=== PATIENT | male | born 1960 | race African-American/Black ===

== ENCOUNTER 2016-11-16 12:57 | Emergency (ER) | payer MEDICAID ==
[~2016-11-16] VITALS: Ht 177.8 cm; Wt 73.0 kg
[~2016-11-16 12:57] MED LIST: AMLO10TA80 PO; BUSP30TA2 PO; DIPH25CA83 PO; INSLIS SQ; INSU3INS6 SUBCUT; LATA2.5D2 EACHEYE; LEVO500T15 PO; LOSA25TA12 PO; ONDA4TAB51 PO; SERT-112 PO
[2016-11-16 13:07] VITALS: BP 160/94
[2016-11-16] MEDS ORDERED: DIAZEPAM 5 MG TABLET PO ONE (14:45)
== END 2016-11-16 15:37 | disposition home or self-care (01) ==
LOC: ER 13:49
DX: M54.12 Radiculopathy, cervical region (principal); E11.9 Type 2 diabetes mellitus without complications; I10 Essential (primary) hypertension; Z79.899 Other long term (current) drug therapy; F17.200 Nicotine dependence, unspecified, uncomplicated
CPT/HCPCS: 99283

== ENCOUNTER 2016-11-21 15:11 | Emergency (ER) | payer MEDICAID ==
[~2016-11-21] VITALS: Ht 175.3 cm; Wt 71.0 kg
[2016-11-21] MEDS ORDERED: SODIUM CHLORIDE 0.9% 1,000 ML IV ONE (16:15)
[2016-11-21] MEDS ORDERED: ACETAMINOPHEN 500MG TABLET PO ONE (16:15)
[2016-11-21] MEDS ORDERED: SODIUM CHLORIDE 0.9% 1000ML BAG (SEPSIS BOLUS) IV ONE (16:30)
[2016-11-21 16:32] LABS: BASOPHILS % 1.2 % (0.0-2.0); HEMATOCRIT. 39.4 % (42.0-52.0); HEMOGLOBIN. 12.8 g/dL (14.0-18.0); LYMPHOCYTES % 9.2 % (20.0-50.0); MEAN CORPUSCULAR HEMOGLOBIN 28.2 pg (28.0-32.0); MEAN CORPUSCULAR HGB CONC 32.4 g/dL (31.0-37.0); MEAN CORPUSCULAR VOLUME 86.9 fL (80.0-94.0); MEAN PLATELET VOLUME 8.8 fl (7.4-10.4); MONOCYTES % 9.7 % (2.0-8.0); NEUTROPHILS % 79.9 % (40.0-76.0); PLATELET 172 x1000/uL (130-400); RED BLOOD CELL COUNT 4.53 mill/uL (4.7-6.1); RED CELL DISTRIBUTION WIDTH 13.1 % (11.6-14.6); WHITE BLOOD COUNT 4.5 x1000/uL (4.5-11.0)
[2016-11-21 16:37] LABS: CHLORIDE 101 mEq/L (98-107); INDEX HEMOLYSI 1 (1-3); INDEX ICTERIC 1 (1-4); INDEX LIPEMIC 1 (1-3)
[2016-11-21 16:42] LABS: ALBUMIN 2.2 g/dL (3.4-5.0); ANION GAP 14; CALCIUM 7.9 mg/dL (8.5-10.1); CARBON DIOXIDE 25 mEq/L (21-32); UREA NITROGEN BLOOD 11 mg/dL (7-21)
[2016-11-21 16:45] LABS: ALANINE AMINOTRANSFERASE 56 IU/L (13-61); eGFR > 60 mL/min (>60)
[2016-11-21 17:03] LABS: INR 1.1; PROTHROMBIN TIME 11.5 sec
[2016-11-21] MEDS ORDERED: ACETAMINOPHEN 325MG TABLET PO ONE (17:45)
[2016-11-21] MEDS ORDERED: KETOROLAC 30MG/ML VIAL IV ONE (18:00)
[2016-11-21 18:21] LABS: CLARITY URINE CLEAR (CLEAR); COLOR URINE YELLOW (YELLOW); GLUCOSE URINE 3+ (NEGATIVE); KETONES URINE NEGATIVE (NEGATIVE); LEUKOCYTE ESTERASE URINE NEGATIVE (NEGATIVE); NITRITE URINE NEGATIVE (NEGATIVE); OCCULT BLOOD URINE 2+ (NEGATIVE); PROTEIN URINE 3+ (NEGATIVE); SPECIFIC GRAVITY URINE 1.021 (1.005-1.030)
[2016-11-21 18:41] LABS: BACTERIA URINE TRACE; SQUAMOUS EPITHELIAL CELL URINE NONE SEEN /lpf (RARE/1+); WBC URINE NONE SEEN /hpf (0-2)
[2016-11-21] MEDS ORDERED: GUAIFENESIN/CODEINE 200-20MG/10ML UDC PO ONE (19:00)
[2016-11-21] MEDS ORDERED: ALBUTEROL (0.083%) 2.5MG/3ML NEB HHN ONE (19:00)
[2016-11-21] MEDS ORDERED: LABETALOL 5MG/ML SYR 20 MG/4 ML SYRINGE IV ONE (19:30)
[2016-11-21 20:10] VITALS: BP 152/101
[2016-12-05] MEDS ORDERED: COR6 PO (10:30)
[2016-12-05] MEDS ORDERED: BUSP30TA2 PO (10:30)
[2016-12-05] MEDS ORDERED: INSU3INS6 SUBCUT (10:30)
[2016-12-05] MEDS ORDERED: Potassium Chloride PO (10:30)
[2016-12-05] MEDS ORDERED: ASPI-867 PO (10:30)
[2016-12-05] MEDS ORDERED: AMLO10TA80 PO (10:30)
[2016-12-05] MEDS ORDERED: LOSA100T11 PO (10:30)
[2016-12-05] MEDS ORDERED: SERT50TA PO (10:30)
[2016-12-05] MEDS ORDERED: LIP40 PO (10:30)
[2016-12-05] MEDS ORDERED: INSLIS SQ (10:30)
[2016-12-05] MEDS ORDERED: LEVO250T2 PO (10:30)
[2016-12-05] MEDS ORDERED: CLOP75TA33 PO (10:31)
== END 2016-11-21 22:30 | disposition home or self-care (01) ==
LOC: ER 15:13
DX: J06.9 Acute upper respiratory infection, unspecified (principal); R50.9 Fever, unspecified; S22.32XA Fracture of one rib, left side, initial encounter for closed fracture; E11.65 Type 2 diabetes mellitus with hyperglycemia; J44.9 Chronic obstructive pulmonary disease, unspecified; I10 Essential (primary) hypertension; F17.210 Nicotine dependence, cigarettes, uncomplicated; Z79.4 Long term (current) use of insulin; Z79.899 Other long term (current) drug therapy; Z87.01 Personal history of pneumonia (recurrent); X58.XXXA Exposure to other specified factors, initial encounter; Y93.89 Activity, other specified; Y92.89 Other specified places as the place of occurrence of the external cause; Y99.8 Other external cause status
CPT/HCPCS: 36415; 71020; 80053; 81001; 82962; 83605; 85025; 85610; 87040; 87804; 93005; 94640; 96361; 96374; 96375; 99285; J1885; J7030; J7611; Z7610

== ENCOUNTER 2017-07-03 23:19 | Emergency (ER) | payer MEDICAID ==
[~2017-07-03] VITALS: Ht 175.3 cm; Wt 79.0 kg
[~2017-07-03 23:19] MED LIST changes: +ASPI-867 PO; +CLOP75TA33 PO; +COR6 PO; +LEVO250T2 PO; -LEVO500T15 PO; +LIP40 PO; +LOSA100T3 PO; -LOSA25TA12 PO; -ONDA4TAB51 PO; +Potassium Chloride PO; +SERT50TA PO
[2017-07-04] MEDS ORDERED: KETOROLAC 60MG/2ML VIAL IM ONE (00:45)
[2017-07-04] MEDS ORDERED: TETANUS, DIPHTHERIA, PERTUSSIS VAC/PF 0.5ML (>7YR OLD) IM ONE (01:45)
[2017-07-04 02:50] VITALS: BP 132/74
== END 2017-07-04 02:50 | disposition home or self-care (01) ==
LOC: ER 23:20
DX: S09.8XXA Other specified injuries of head, initial encounter (principal); M79.641 Pain in right hand; R07.81 Pleurodynia; E11.9 Type 2 diabetes mellitus without complications; I11.0 Hypertensive heart disease with heart failure; I50.9 Heart failure, unspecified; F17.200 Nicotine dependence, unspecified, uncomplicated; Z79.82 Long term (current) use of aspirin; Z79.4 Long term (current) use of insulin; V19.9XXA Pedal cyclist (driver) (passenger) injured in unspecified traffic accident, initial encounter; Y93.89 Activity, other specified; Y92.89 Other specified places as the place of occurrence of the external cause; Y99.8 Other external cause status
CPT/HCPCS: 70450; 71101; 73130; 90471; 90715; 96372; 99284; J1885

== ENCOUNTER 2018-08-10 07:04 | Inpatient (IN) | payer MEDICAID ==
[~2018-08-10] VITALS: Ht 175.3 cm; Wt 76.1 kg
[~2018-08-10 07:04] MED LIST changes: +ASA5EC PO; -ASPI-867 PO
[2018-08-10] MEDS ORDERED: METHYLPREDNISOLONE SOD SUCC 125 MG/2 ML VIAL IV STA (07:29)
[2018-08-10] MEDS ORDERED: IPRATROPIUM/ALBUTEROL 0.5-3(2.5)MG/3ML NEB HHN ONE (07:30)
[2018-08-10] MEDS ORDERED: LEVOFLOXACIN 750MG PREMIX 150 ML IV ONE (07:30)
[2018-08-10] MEDS ORDERED: MAGNESIUM 2 G PREMIX 50 ML IV ONE (07:30)
[2018-08-10 07:51] LABS: HEMATOCRIT. 39.9 % (42.0-52.0); HEMOGLOBIN. 12.8 g/dL (14.0-18.0); MEAN CORPUSCULAR VOLUME 84.4 fL (80.0-94.0); MEAN PLATELET VOLUME 8.4 fl (7.4-10.4); PLATELET 267 x1000/uL (130-400); RED BLOOD CELL COUNT 4.72 mill/uL (4.7-6.1); RED CELL DISTRIBUTION WIDTH 14.3 % (11.6-14.6)
[2018-08-10 07:54] LABS: CHLORIDE 104 mEq/L (98-107)
[2018-08-10 07:58] LABS: ETHANOL BLOOD < 10 mg/dL
[2018-08-10 07:59] LABS: PARTIAL THROMBOPLASTIN TIME 26.2 sec (23.4-31.0); PROTHROMBIN TIME 10.1 sec (9.1-11.1)
[2018-08-10 08:04] LABS: CREATINE KINASE 534 IU/L (39-308)
[2018-08-10 08:07] LABS: CREATINE KINASE MB FRACTION 7.4 ng/mL (0.5-3.6)
[2018-08-10 08:18] LABS: PLATELET ESTIMATE NORMAL
[2018-08-10 10:15] LABS: *AMPHETAMINES SCREEN URINE NEGATIVE (NEGATIVE); OPIATES URINE SCREEN PRESUMTIVE POSITIVE (NEGATIVE); PHENCYCLIDINE URINE SCREEN NEGATIVE (NEGATIVE)
[2018-08-10 10:16] LABS: CANNABINOID URINE SCREEN NEGATIVE (NEGATIVE)
[2018-08-10 10:25] LABS: *BARBITURATES SCREEN URINE NEGATIVE (NEGATIVE)
[2018-08-10 10:26] LABS: *COCAINE SCREEN URINE PRESUMTIVE POSITIVE (NEGATIVE)
[2018-08-10 10:27] LABS: *BENZODIAZEPINES SCREEN URINE NEGATIVE (NEGATIVE)
[2018-08-10 10:28] LABS: METHADONE URINE SCREEN NEGATIVE (NEGATIVE)
[2018-08-10] MEDS: CLONIDINE 0.1MG TABLET PO PRN (14:42)
[2018-08-10] MEDS: HYDROCODONE/ACETAMINOPHEN 5/325MG TABLET PO PRN (19:52)
[2018-08-10 21:00] VITALS: BP_SYST 151; BP_DIAS 100; BP_DIAS 108
[2018-08-11] VITALS: BP 176/114
[2018-08-11] MEDS: CLONIDINE 0.1MG TABLET PO PRN ×2 (00:27→13:08)
[2018-08-11] MEDS: HYDROCODONE/ACETAMINOPHEN 5/325MG TABLET PO PRN ×2 (00:27→10:46)
[2018-08-11] MEDS ORDERED: HYDROCODONE/ACETAMINOPHEN 5/325MG TABLET PO PRN (03:00)
[2018-08-11] MEDS ORDERED: DEXTROSE 50% WATER 50ML SYRINGE IV PRN (03:00)
[2018-08-11] MEDS ORDERED: DIPHENHYDRAMINE 25MG CAPSULE PO PRN (03:00)
[2018-08-11] MEDS ORDERED: INSULIN LISPRO 100 UNITS/ML SUBCUT NR (03:00)
[2018-08-11] MEDS: INSULIN LISPRO 100 UNITS/ML SUBCUT SCH ×5 (03:34→21:11)
[2018-08-11] MEDS: METHYLPREDNISOLONE SOD SUCC 40 MG/ML VIAL IV SCH ×3 (03:35→22:25)
[2018-08-11] MEDS: IPRATROPIUM/ALBUTEROL 0.5-3(2.5)MG/3ML NEB HHN SCH ×5 (03:53→23:36)
[2018-08-11 04:00] VITALS: BP 157/116
[2018-08-11] MEDS: BLOOD SUGAR DIAGNOSTIC STRIP TEST SCH ×4 (06:23→21:08)
[2018-08-11 08:00] VITALS: BP 156/110
[2018-08-11] MEDS: CARVEDILOL 6.25 MG TABLET PO SCH ×2 (09:25→20:06)
[2018-08-11] MEDS: AMLODIPINE 10MG TABLET PO SCH (09:25)
[2018-08-11] MEDS: ENOXAPARIN 40MG/0.4ML SYR SUBCUT SCH (09:26)
[2018-08-11] MEDS: ASPIRIN 325MG EC TABLET PO SCH (09:26)
[2018-08-11] MEDS ORDERED: LEVOFLOXACIN 250MG TABLET PO SCH (11:00)
[2018-08-11 11:52] LABS: CREATINE KINASE MB FRACTION 5.9 ng/mL (0.5-3.6)
[2018-08-11 12:00] VITALS: BP 155/101
[2018-08-11] MEDS: CHLORDIAZEPOXIDE 25MG CAPSULE PO SCH ×2 (14:58→22:25)
[2018-08-11] MEDS ORDERED: HYDRALAZINE 20MG/ML VIAL IV PRN (15:30)
[2018-08-11 16:00] VITALS: BP 164/114
[2018-08-11] MEDS ORDERED: BENZONATATE 100MG CAPSULE PO PRN (16:15)
[2018-08-11] MEDS ORDERED: HYDRALAZINE 20MG/ML VIAL IV NR (17:00)
[2018-08-11 20:00] VITALS: BP 158/104
[2018-08-11] MEDS: SERTRALINE HCL 50MG TABLET PO SCH (20:05)
[2018-08-11] MEDS: ATORVASTATIN CALCIUM 40MG TABLET PO SCH (20:06)
[2018-08-11] MEDS: LATANOPROST 0.005% OPHTH DROPS 2.5ML EACHEYE SCH ×2 (20:06→20:09)
[2018-08-12] VITALS (7 sets, daily range): BP systolic 144–164; BP diastolic 91–111
[2018-08-12] MEDS: CLONIDINE 0.1MG TABLET PO PRN (00:05)
[2018-08-12] MEDS: HYDROCODONE/ACETAMINOPHEN 5/325MG TABLET PO PRN ×3 (00:10→20:38)
[2018-08-12] MEDS: IPRATROPIUM/ALBUTEROL 0.5-3(2.5)MG/3ML NEB HHN SCH ×5 (03:57→20:15)
[2018-08-12] MEDS: BLOOD SUGAR DIAGNOSTIC STRIP TEST SCH ×4 (06:26→20:36)
[2018-08-12] MEDS: METHYLPREDNISOLONE SOD SUCC 40 MG/ML VIAL IV SCH ×3 (06:26→20:35)
[2018-08-12] MEDS: CHLORDIAZEPOXIDE 25MG CAPSULE PO SCH ×3 (06:26→20:35)
[2018-08-12] MEDS: INSULIN LISPRO 100 UNITS/ML SUBCUT SCH ×4 (06:34→20:39)
[2018-08-12 08:09] LABS: CHLORIDE 102 mEq/L (98-107)
[2018-08-12 08:10] LABS: HEMATOCRIT. 36.1 % (42.0-52.0); HEMOGLOBIN. 11.6 g/dL (14.0-18.0); MEAN CORPUSCULAR HEMOGLOBIN 26.7 pg (28.0-32.0); MEAN CORPUSCULAR VOLUME 83.3 fL (80.0-94.0); MEAN PLATELET VOLUME 8.6 fl (7.4-10.4); PLATELET 293 x1000/uL (130-400); RED BLOOD CELL COUNT 4.34 mill/uL (4.7-6.1); RED CELL DISTRIBUTION WIDTH 14.1 % (11.6-14.6)
[2018-08-12] MEDS: FOLIC ACID 1MG TABLET PO SCH (08:26)
[2018-08-12] MEDS: AMLODIPINE 10MG TABLET PO SCH (08:27)
[2018-08-12] MEDS: CLOPIDOGREL 75MG TABLET PO SCH (08:27)
[2018-08-12] MEDS: THIAMINE HCL 100MG TABLET PO SCH (08:27)
[2018-08-12] MEDS: CARVEDILOL 6.25 MG TABLET PO SCH ×2 (08:27→20:36)
[2018-08-12] MEDS: MULTIVITAMINS,THER W-MINERALS TABLET PO SCH (08:27)
[2018-08-12] MEDS: ASPIRIN 325MG EC TABLET PO SCH (08:27)
[2018-08-12] MEDS: ENOXAPARIN 40MG/0.4ML SYR SUBCUT SCH (08:28)
[2018-08-12 08:31] LABS: TOTAL IRON BINDING CAPACITY 256 ug/dL (250-450)
[2018-08-12 08:32] LABS: CREATINE KINASE 257 IU/L (39-308)
[2018-08-12 09:46] LABS: FOLIC ACID (FOLATE) SERUM 14.7 ng/mL (>5.38)
[2018-08-12 09:59] LABS: PLATELET ESTIMATE NORMAL
[2018-08-12] MEDS ORDERED: FUROSEMIDE 40MG/4ML VIAL IVP NR (13:45)
[2018-08-12] MEDS: LOSARTAN POTASSIUM 25 MG TABLET PO SCH ×2 (16:42→20:35)
[2018-08-12] MEDS: CEFTRIAXONE 1 G PREMIX 50 ML IV SCH (16:42)
[2018-08-12] MEDS: AZITHROMYCIN 500 MG in DEXT 5% WATER 250 ML IV SCH (17:46)
[2018-08-12] MEDS: FUROSEMIDE 40MG/4ML VIAL IVP SCH (17:46)
[2018-08-12] MEDS: LATANOPROST 0.005% OPHTH DROPS 2.5ML EACHEYE SCH ×2 (20:34→20:51)
[2018-08-12] MEDS: ATORVASTATIN CALCIUM 40MG TABLET PO SCH (20:35)
[2018-08-12] MEDS: SERTRALINE HCL 50MG TABLET PO SCH (20:36)
[2018-08-12] MEDS ORDERED: INSULIN GLARGINE UD 100 UNITS/ML SYR SUBCUT SCH (22:00)
[2018-08-13] VITALS (7 sets, daily range): BP systolic 116–146; BP diastolic 84–102
[2018-08-13] MEDS: IPRATROPIUM/ALBUTEROL 0.5-3(2.5)MG/3ML NEB HHN SCH ×6 (03:54→20:49)
[2018-08-13] MEDS: FUROSEMIDE 40MG/4ML VIAL IVP SCH ×2 (06:12→16:08)
[2018-08-13] MEDS: METHYLPREDNISOLONE SOD SUCC 40 MG/ML VIAL IV SCH ×2 (06:12→14:39)
[2018-08-13] MEDS: CHLORDIAZEPOXIDE 25MG CAPSULE PO SCH ×3 (06:12→21:09)
[2018-08-13] MEDS: BLOOD SUGAR DIAGNOSTIC STRIP TEST SCH ×4 (06:12→21:08)
[2018-08-13] MEDS: INSULIN LISPRO 100 UNITS/ML SUBCUT SCH ×7 (06:13→21:22)
[2018-08-13] MEDS: ASPIRIN 325MG EC TABLET PO SCH (08:43)
[2018-08-13] MEDS: CLOPIDOGREL 75MG TABLET PO SCH (08:43)
[2018-08-13] MEDS: CARVEDILOL 6.25 MG TABLET PO SCH ×2 (08:43→21:07)
[2018-08-13] MEDS: LOSARTAN POTASSIUM 25 MG TABLET PO SCH ×2 (08:44→21:08)
[2018-08-13] MEDS: THIAMINE HCL 100MG TABLET PO SCH (08:44)
[2018-08-13] MEDS: ENOXAPARIN 40MG/0.4ML SYR SUBCUT SCH (08:44)
[2018-08-13] MEDS: MULTIVITAMINS,THER W-MINERALS TABLET PO SCH (08:44)
[2018-08-13] MEDS: AMLODIPINE 10MG TABLET PO SCH (08:44)
[2018-08-13] MEDS: FOLIC ACID 1MG TABLET PO SCH (08:44)
[2018-08-13] MEDS ORDERED: FUROSEMIDE 40MG/4ML VIAL IVP SCH (09:00)
[2018-08-13 09:27] LABS: HEMATOCRIT. 38.6 % (42.0-52.0); HEMOGLOBIN. 12.6 g/dL (14.0-18.0); MEAN CORPUSCULAR HEMOGLOBIN 26.9 pg (28.0-32.0); MEAN CORPUSCULAR VOLUME 82.8 fL (80.0-94.0); MEAN PLATELET VOLUME 8.8 fl (7.4-10.4); PLATELET 329 x1000/uL (130-400); RED BLOOD CELL COUNT 4.67 mill/uL (4.7-6.1); RED CELL DISTRIBUTION WIDTH 14.1 % (11.6-14.6)
[2018-08-13 09:53] LABS: CHLORIDE 101 mEq/L (98-107)
[2018-08-13 10:09] LABS: CREATINE KINASE 113 IU/L (39-308)
[2018-08-13 10:19] LABS: CREATINE KINASE MB FRACTION 3.5 ng/mL (0.5-3.6)
[2018-08-13 11:11] LABS: PLATELET ESTIMATE NORMAL
[2018-08-13] MEDS: FERROUS SULFATE 325MG TABLET PO SCH ×3 (11:55→17:40)
[2018-08-13] MEDS: CEFTRIAXONE 1 G PREMIX 50 ML IV SCH (11:55)
[2018-08-13] MEDS ORDERED: INSULIN GLARGINE UD 100 UNITS/ML SYR SUBCUT SCH (13:00)
[2018-08-13] MEDS: HYDROCODONE/ACETAMINOPHEN 5/325MG TABLET PO PRN ×2 (14:39→21:19)
[2018-08-13] MEDS: AZITHROMYCIN 500 MG in DEXT 5% WATER 250 ML IV SCH (14:39)
[2018-08-13] MEDS ORDERED: AMLODIPINE 2.5MG TABLET PO SCH (15:30)
[2018-08-13] MEDS ORDERED: CLONIDINE 0.1MG TABLET PO PRN (15:30)
[2018-08-13] MEDS ORDERED: CLONIDINE 0.2MG TABLET PO PRN (15:30)
[2018-08-13] MEDS ORDERED: ONDANSETRON HCL 4MG/2ML INJ IV PRN (15:30)
[2018-08-13] MEDS: LATANOPROST 0.005% OPHTH DROPS 2.5ML EACHEYE SCH (21:07)
[2018-08-13] MEDS: ATORVASTATIN CALCIUM 40MG TABLET PO SCH (21:08)
[2018-08-13] MEDS: SERTRALINE HCL 50MG TABLET PO SCH (21:08)
[2018-08-13] MEDS: INSULIN GLARGINE UD 100 UNITS/ML SYR SUBCUT SCH (21:12)
[2018-08-14] VITALS: BP 131/88
[2018-08-14] MEDS: IPRATROPIUM/ALBUTEROL 0.5-3(2.5)MG/3ML NEB HHN SCH ×3 (01:48→13:36)
[2018-08-14 04:00] VITALS: BP 124/84
[2018-08-14] MEDS: CHLORDIAZEPOXIDE 25MG CAPSULE PO SCH ×2 (06:14→14:46)
[2018-08-14] MEDS: BLOOD SUGAR DIAGNOSTIC STRIP TEST SCH ×2 (06:14→12:10)
[2018-08-14] MEDS: INSULIN LISPRO 100 UNITS/ML SUBCUT SCH ×3 (06:18→13:49)
[2018-08-14 08:00] VITALS: BP 150/99
[2018-08-14 08:37] LABS: BASOPHILS % 0.1 % (0.0-2.0); HEMATOCRIT. 39.2 % (42.0-52.0); HEMOGLOBIN. 12.7 g/dL (14.0-18.0); LYMPHOCYTES % 12.6 % (20.0-50.0); MEAN CORPUSCULAR HEMOGLOBIN 26.5 pg (28.0-32.0); MEAN PLATELET VOLUME 8.5 fl (7.4-10.4); MONOCYTES % 6.2 % (2.0-8.0); NEUTROPHILS % 81.1 % (40.0-76.0); PLATELET 323 x1000/uL (130-400); RED BLOOD CELL COUNT 4.78 mill/uL (4.7-6.1); RED CELL DISTRIBUTION WIDTH 14.1 % (11.6-14.6)
[2018-08-14 09:18] LABS: CHLORIDE 104 mEq/L (98-107)
[2018-08-14] MEDS: CARVEDILOL 6.25 MG TABLET PO SCH (09:44)
[2018-08-14] MEDS: FERROUS SULFATE 325MG TABLET PO SCH ×2 (09:45→13:45)
[2018-08-14] MEDS: CLOPIDOGREL 75MG TABLET PO SCH (09:45)
[2018-08-14] MEDS: LOSARTAN POTASSIUM 25 MG TABLET PO SCH (09:45)
[2018-08-14] MEDS: THIAMINE HCL 100MG TABLET PO SCH (09:45)
[2018-08-14] MEDS: FOLIC ACID 1MG TABLET PO SCH (09:45)
[2018-08-14] MEDS: ENOXAPARIN 40MG/0.4ML SYR SUBCUT SCH (09:45)
[2018-08-14] MEDS: AMLODIPINE 10MG TABLET PO SCH (09:45)
[2018-08-14] MEDS: MULTIVITAMINS,THER W-MINERALS TABLET PO SCH (09:53)
[2018-08-14] MEDS: ASPIRIN 325MG EC TABLET PO SCH (09:53)
[2018-08-14] MEDS: HYDROCODONE/ACETAMINOPHEN 5/325MG TABLET PO PRN ×2 (09:54→14:51)
[2018-08-14 12:00] VITALS: BP 134/90
[2018-08-14] MEDS: CEFTRIAXONE 1 G PREMIX 50 ML IV SCH (13:45)
[2018-08-14] MEDS: INSULIN GLARGINE UD 100 UNITS/ML SYR SUBCUT SCH (13:48)
[2018-08-14] MEDS ORDERED: FERR325T23 PO (13:51)
[2018-08-14] MEDS ORDERED: THIA100T72 PO (13:51)
[2018-08-14] MEDS ORDERED: AZIT500T5 MT (13:51)
[2018-08-14] MEDS ORDERED: FURO40TA5 MT (13:51)
[2018-08-14] MEDS ORDERED: FOLI-43 PO (13:51)
[2018-08-14] MEDS ORDERED: L25 PO (13:51)
[2018-08-14] MEDS ORDERED: LOSA25TA3 PO (13:51)
[2018-08-14] MEDS ORDERED: ALBU6.7H INH (13:54)
[2018-08-14] MEDS ORDERED: AMLODIPINE 2.5MG TABLET PO SCH (14:45)
[2018-08-14] MEDS ORDERED: AMLO2.5T45 PO (15:44)
[2018-08-14 16:00] VITALS: BP 145/88
[2018-08-14] MEDS: AZITHROMYCIN 500 MG in DEXT 5% WATER 250 ML IV SCH (16:23)
[2018-08-14 16:30] VITALS: BP 145/88
== END 2018-08-14 17:10 | disposition home or self-care (01) | DRG 816 ==
LOC: ER 07:04 → 5WST 07:38 → EDBEDREQ 10:26 → ENRESERV 19:38 → 8WST 08-13 17:19
PROVIDERS: ADMIT Internal Medicine; ATTEND Internal Medicine
DX: T40.5X1A Poisoning by cocaine, accidental (unintentional), initial encounter (principal); J96.00 Acute respiratory failure, unspecified whether with hypoxia or hypercapnia; I50.23 Acute on chronic systolic (congestive) heart failure; G92 Toxic encephalopathy; N17.9 Acute kidney failure, unspecified; E11.65 Type 2 diabetes mellitus with hyperglycemia; F14.10 Cocaine abuse, uncomplicated; D50.9 Iron deficiency anemia, unspecified; E87.2 Acidosis; I11.0 Hypertensive heart disease with heart failure; J68.0 Bronchitis and pneumonitis due to chemicals, gases, fumes and vapors; J44.1 Chronic obstructive pulmonary disease with (acute) exacerbation; R00.0 Tachycardia, unspecified; T38.0X5A Adverse effect of glucocorticoids and synthetic analogues, initial encounter; F17.210 Nicotine dependence, cigarettes, uncomplicated; M62.82 Rhabdomyolysis; E78.00 Pure hypercholesterolemia, unspecified; F10.239 Alcohol dependence with withdrawal, unspecified; G43.909 Migraine, unspecified, not intractable, without status migrainosus; I42.0 Dilated cardiomyopathy; T50.2X5A Adverse effect of carbonic-anhydrase inhibitors, benzothiadiazides and other diuretics, initial encounter; Z79.82 Long term (current) use of aspirin; Z79.899 Other long term (current) drug therapy; Z87.820 Personal history of traumatic brain injury; I25.2 Old myocardial infarction; Z79.4 Long term (current) use of insulin; Z91.19 Patient's noncompliance with other medical treatment and regimen; Z71.6 Tobacco abuse counseling; Y92.89 Other specified places as the place of occurrence of the external cause
CPT/HCPCS: 36415; 71045; 74018; 80048; 80305; 82010; 82140; 82550; 82553; 82607; 82728; 82746; 82962; 83036; 83540; 83550; 83605; 83735; 83880; 84484; 85379; 87804; 93005; 93306; 93970; 94640; 96365; 96367; 96375; 99285; G0482; J0360; J0456; J0696; J1650; J1815; J1940; J1956; J2920; J2930; J3475; J7050; J7060; J7620

== ENCOUNTER 2018-08-17 00:16 | Emergency (ER) | payer MEDICAID ==
[~2018-08-17] VITALS: Ht 175.3 cm; Wt 77.5 kg
[~2018-08-17 00:16] MED LIST changes: +ALBU6.7H INH; -AMLO10TA80 PO; +AMLO2.5T45 PO; +AZIT500T5 MT; -DIPH25CA83 PO; +FERR325T23 PO; +FOLI-43 PO; +FURO40TA5 MT; +L25 PO; -LEVO250T2 PO; -LOSA100T3 PO; +LOSA25TA3 PO; -Potassium Chloride PO; -SERT-112 PO; +THIA100T72 PO
[2018-08-17] MEDS ORDERED: ONDANSETRON 4MG ODT PO ONE (01:15)
[2018-08-17 01:45] LABS: CHLORIDE 107 mEq/L (98-107)
[2018-08-17 01:51] LABS: BASOPHILS % 0.8 % (0.0-2.0); EOSINOPHILS % 3.6 % (0.0-5.0); HEMATOCRIT. 38.3 % (42.0-52.0); HEMOGLOBIN. 12.2 g/dL (14.0-18.0); LYMPHOCYTES % 19.9 % (20.0-50.0); MEAN CORPUSCULAR HEMOGLOBIN 26.6 pg (28.0-32.0); MEAN CORPUSCULAR VOLUME 83.6 fL (80.0-94.0); MEAN PLATELET VOLUME 8.7 fl (7.4-10.4); MONOCYTES % 12.7 % (2.0-8.0); PLATELET 257 x1000/uL (130-400); RED BLOOD CELL COUNT 4.58 mill/uL (4.7-6.1); RED CELL DISTRIBUTION WIDTH 14.2 % (11.6-14.6)
[2018-08-17 01:56] LABS: PROTHROMBIN TIME 10.3 sec (9.1-11.1)
[2018-08-17 02:59] VITALS: BP 130/80
== END 2018-08-17 03:00 | disposition home or self-care (01) ==
LOC: ER 00:16
DX: R06.6 Hiccough (principal); R11.10 Vomiting, unspecified; I50.9 Heart failure, unspecified; E11.9 Type 2 diabetes mellitus without complications; I10 Essential (primary) hypertension; Z79.82 Long term (current) use of aspirin; Z79.4 Long term (current) use of insulin; Z79.899 Other long term (current) drug therapy
CPT/HCPCS: 36415; 80053; 85025; 85610; 99283; Q0162

== ENCOUNTER 2018-09-02 11:57 | Inpatient (IN) | payer MEDICAID ==
[~2018-09-02] VITALS: Ht 175.3 cm; Wt 68.0 kg
[2018-09-02] MEDS ORDERED: METHYLPREDNISOLONE SOD SUCC 125 MG/2 ML VIAL IV STA (12:56)
[2018-09-02] MEDS ORDERED: NITROGLYCERIN OINT 1GM/INCH UDPKT TD ONE (13:00)
[2018-09-02] MEDS ORDERED: IPRATROPIUM/ALBUTEROL 0.5-3(2.5)MG/3ML NEB HHN ONE (13:00)
[2018-09-02] MEDS ORDERED: FUROSEMIDE 40MG/4ML VIAL IV ONE (13:00)
[2018-09-02 13:10] LABS: BASOPHILS % 0.3 % (0.0-2.0); EOSINOPHILS % 1.1 % (0.0-5.0); LYMPHOCYTES % 18.6 % (20.0-50.0); MEAN CORPUSCULAR HEMOGLOBIN 26.8 pg (28.0-32.0); MEAN CORPUSCULAR VOLUME 84.5 fL (80.0-94.0); MEAN PLATELET VOLUME 8.8 fl (7.4-10.4); MONOCYTES % 6.2 % (2.0-8.0); NEUTROPHILS % 73.8 % (40.0-76.0); PLATELET 296 x1000/uL (130-400); RED BLOOD CELL COUNT 4.86 mill/uL (4.7-6.1); RED CELL DISTRIBUTION WIDTH 15.7 % (11.6-14.6)
[2018-09-02 13:18] LABS: CHLORIDE 106 mEq/L (98-107)
[2018-09-02 13:24] LABS: ETHANOL BLOOD < 10 mg/dL
[2018-09-02] MEDS ORDERED: CEFTRIAXONE 1 G PREMIX 50 ML IV ONE (14:45)
[2018-09-02] MEDS ORDERED: AZITHROMYCIN 500 MG in DEXT 5% WATER 250 ML IV SCH (14:45)
[2018-09-02 15:13] LABS: BG CARBOXYHEMOGLOBIN 1.2 % (0.5-1.5); BG DEOXYHEMOGLOBIN 6.5 % (0.0-5.0); BG FRACTION INSPIRED OXYGEN 28; BG HCO3 ACT 24.3 mmol/L (22.0-26.0); BG METHEMOGLOBIN 0.2 % (0.0-1.5); BG OXYGEN SATURATION 93.4 % (92.0-98.5); BG OXYHEMOGLOBIN 92.1 % (94.0-97.0); BG PCO2 34.6 mmHg (35.0-45.0); BG PH 7.465 (7.350-7.450); BG SAMPLE SITE LEFT BRACHIAL; BG TOTAL HEMOGLOBIN 13.4 g/dL (12.0-18.0); BG VENT MODE NASAL CANNULA
[2018-09-02] MEDS ORDERED: IPRATROPIUM/ALBUTEROL 0.5-3(2.5)MG/3ML NEB INH PRN (18:00)
[2018-09-02] MEDS ORDERED: LORAZEPAM 0.5MG TABLET PO PRN (18:00)
[2018-09-02] MEDS ORDERED: ONDANSETRON HCL 4MG/2ML INJ IV PRN (18:00)
[2018-09-02] MEDS ORDERED: ACETAMINOPHEN 325MG TABLET PO PRN (18:00)
[2018-09-02] MEDS ORDERED: LEVOFLOXACIN 750MG PREMIX 150 ML IV SCH (18:00)
[2018-09-02] MEDS ORDERED: FUROSEMIDE 40MG/4ML VIAL IV SCH (18:00)
[2018-09-02] MEDS ORDERED: DOCUSATE SODIUM 100MG CAPSULE PO PRN (18:00)
[2018-09-02] MEDS ORDERED: DEXTROSE 50% WATER 50ML SYRINGE IV PRN (19:45)
[2018-09-02 20:40] LABS: BETA HYDROXYBUTYRATE 0.7 mMol/L (0.0-0.3)
[2018-09-02 20:43] LABS: CREATINE KINASE MB FRACTION 11.1 ng/mL (0.5-3.6)
[2018-09-02] MEDS: BLOOD SUGAR DIAGNOSTIC STRIP TEST SCH (21:00)
[2018-09-02] MEDS: INSULIN LISPRO 100 UNITS/ML SUBCUT SCH ×2 (21:03→22:20)
[2018-09-02] MEDS ORDERED: INSULIN GLARGINE UD 100 UNITS/ML SYR SUBCUT SCH ×2 (22:00)
[2018-09-02 22:16] VITALS: BP 148/98
[2018-09-02] MEDS: FUROSEMIDE 40MG/4ML VIAL IV SCH (22:18)
[2018-09-02] MEDS ORDERED: INSULIN LISPRO 100 UNITS/ML SUBCUT SCH (23:15)
[2018-09-02 23:52] VITALS: BP 148/98
[2018-09-03] VITALS (7 sets, daily range): BP systolic 139–167; BP diastolic 85–115
[2018-09-03] MEDS ORDERED: VENTOLIN 90 MCG BC (05:49)
[2018-09-03] MEDS ORDERED: INSU100I28 SQ (05:49)
[2018-09-03] MEDS ORDERED: INSU100I13 SQ (05:49)
[2018-09-03] MEDS ORDERED: FURO-151 PO (05:51)
[2018-09-03] MEDS: INSULIN LISPRO 100 UNITS/ML SUBCUT SCH ×7 (05:52→21:28)
[2018-09-03] MEDS: BLOOD SUGAR DIAGNOSTIC STRIP TEST SCH ×4 (05:52→20:58)
[2018-09-03 06:15] LABS: BASOPHILS % 0.4 % (0.0-2.0); HEMATOCRIT. 37.8 % (42.0-52.0); LYMPHOCYTES % 12.9 % (20.0-50.0); MEAN CORPUSCULAR HEMOGLOBIN 26.3 pg (28.0-32.0); MEAN CORPUSCULAR VOLUME 82.8 fL (80.0-94.0); MEAN PLATELET VOLUME 8.7 fl (7.4-10.4); MONOCYTES % 10.9 % (2.0-8.0); NEUTROPHILS % 75.8 % (40.0-76.0); PLATELET 324 x1000/uL (130-400); RED BLOOD CELL COUNT 4.56 mill/uL (4.7-6.1)
[2018-09-03 06:32] LABS: CHLORIDE 108 mEq/L (98-107)
[2018-09-03] MEDS ORDERED: INSULIN LISPRO 100 UNITS/ML SUBCUT SCH (07:50)
[2018-09-03] MEDS: NICOTINE 14MG PATCH TD SCH (10:08)
[2018-09-03] MEDS: CARVEDILOL 6.25 MG TABLET PO SCH ×2 (10:09→21:26)
[2018-09-03] MEDS: POTASSIUM CHLORIDE 20MEQ TABLET SR PO SCH (10:09)
[2018-09-03] MEDS: FUROSEMIDE 40MG/4ML VIAL IV SCH ×2 (10:09→21:26)
[2018-09-03] MEDS: ASPIRIN 81MG EC TABLET PO SCH (10:09)
[2018-09-03] MEDS: HYDROCODONE/ACETAMINOPHEN 5/325MG TABLET PO PRN ×2 (10:32→21:34)
[2018-09-03] MEDS: ENOXAPARIN 40MG/0.4ML SYR SUBCUT SCH (12:24)
[2018-09-03] MEDS: CLONIDINE 0.1MG TABLET PO PRN ×2 (13:10→18:58)
[2018-09-03] MEDS ORDERED: NICOTINE 14MG PATCH TD SCH (13:45)
[2018-09-03 17:57] LABS: BG BASE EXCESS 3.3 mmol/L (-2.0-2.0); BG CARBOXYHEMOGLOBIN 1.2 % (0.5-1.5); BG DEOXYHEMOGLOBIN 4.3 % (0.0-5.0); BG FRACTION INSPIRED OXYGEN 28; BG HCO3 ACT 25.7 mmol/L (22.0-26.0); BG METHEMOGLOBIN 0.3 % (0.0-1.5); BG OXYGEN SATURATION 95.6 % (92.0-98.5); BG OXYHEMOGLOBIN 94.2 % (94.0-97.0); BG PCO2 32.4 mmHg (35.0-45.0); BG PH 7.518 (7.350-7.450); BG SAMPLE SITE RIGHT RADIAL; BG TOTAL HEMOGLOBIN 12.9 g/dL (12.0-18.0); BG VENT MODE NASAL CANNULA
[2018-09-03] MEDS: FOLIC ACID 1MG TABLET PO SCH (18:09)
[2018-09-03] MEDS: AZITHROMYCIN 500 MG TABLET PO SCH (18:09)
[2018-09-03] MEDS: CHLORDIAZEPOXIDE 25MG CAPSULE PO SCH ×2 (18:09→21:26)
[2018-09-03] MEDS: FERROUS SULFATE 325MG TABLET PO SCH (18:09)
[2018-09-03] MEDS: CEFTRIAXONE 1 G PREMIX 50 ML IV SCH (18:10)
[2018-09-03] MEDS: THIAMINE HCL 100MG TABLET PO SCH (18:10)
[2018-09-03] MEDS: MULTIVITAMINS,THER W-MINERALS TABLET PO SCH (18:18)
[2018-09-03] MEDS: BUDESONIDE 0.5MG/2ML NEB HHN SCH (19:58)
[2018-09-03] MEDS: IPRATROPIUM/ALBUTEROL 0.5-3(2.5)MG/3ML NEB HHN SCH (19:58)
[2018-09-03] MEDS: INSULIN GLARGINE UD 100 UNITS/ML SYR SUBCUT SCH (22:41)
[2018-09-04 00:10] VITALS: BP 147/88
[2018-09-04] MEDS: IPRATROPIUM/ALBUTEROL 0.5-3(2.5)MG/3ML NEB HHN SCH ×4 (01:17→20:10)
[2018-09-04 04:00] VITALS: BP 124/80
[2018-09-04] MEDS: BLOOD SUGAR DIAGNOSTIC STRIP TEST SCH ×4 (06:21→21:12)
[2018-09-04] MEDS: CHLORDIAZEPOXIDE 25MG CAPSULE PO SCH ×3 (06:27→22:03)
[2018-09-04] MEDS: INSULIN LISPRO 100 UNITS/ML SUBCUT SCH ×6 (06:29→20:56)
[2018-09-04 07:04] LABS: BASOPHILS % 1.2 % (0.0-2.0); EOSINOPHILS % 1.4 % (0.0-5.0); HEMATOCRIT. 35.1 % (42.0-52.0); HEMOGLOBIN. 11.1 g/dL (14.0-18.0); LYMPHOCYTES % 29.8 % (20.0-50.0); MEAN CORPUSCULAR HEMOGLOBIN 26.4 pg (28.0-32.0); MEAN CORPUSCULAR VOLUME 83.5 fL (80.0-94.0); MEAN PLATELET VOLUME 8.5 fl (7.4-10.4); MONOCYTES % 6.7 % (2.0-8.0); NEUTROPHILS % 60.9 % (40.0-76.0); PLATELET 304 x1000/uL (130-400); RED CELL DISTRIBUTION WIDTH 15.1 % (11.6-14.6)
[2018-09-04 07:33] VITALS: BP 133/85
[2018-09-04] MEDS: HYDROCODONE/ACETAMINOPHEN 5/325MG TABLET PO PRN ×2 (07:35→22:12)
[2018-09-04] MEDS: POTASSIUM CHLORIDE 20MEQ TABLET SR PO SCH (09:04)
[2018-09-04] MEDS: MULTIVITAMINS,THER W-MINERALS TABLET PO SCH (09:04)
[2018-09-04] MEDS: NICOTINE 14MG PATCH TD SCH (09:04)
[2018-09-04] MEDS: ENOXAPARIN 40MG/0.4ML SYR SUBCUT SCH (09:04)
[2018-09-04] MEDS: AZITHROMYCIN 500 MG TABLET PO SCH (09:05)
[2018-09-04] MEDS: FUROSEMIDE 40MG/4ML VIAL IV SCH (09:05)
[2018-09-04] MEDS: THIAMINE HCL 100MG TABLET PO SCH (09:05)
[2018-09-04] MEDS: FERROUS SULFATE 325MG TABLET PO SCH ×3 (09:05→16:54)
[2018-09-04] MEDS: ASPIRIN 81MG EC TABLET PO SCH (09:05)
[2018-09-04] MEDS: FOLIC ACID 1MG TABLET PO SCH (09:05)
[2018-09-04] MEDS: CARVEDILOL 6.25 MG TABLET PO SCH ×2 (09:05→20:52)
[2018-09-04] MEDS: BUDESONIDE 0.5MG/2ML NEB HHN SCH ×2 (09:59→20:10)
[2018-09-04 12:00] VITALS: BP 126/76
[2018-09-04] MEDS: CEFTRIAXONE 1 G PREMIX 50 ML IV SCH (16:54)
[2018-09-04] MEDS: GUAIFENESIN-DM 200MG-20MG/10ML UDC PO PRN (17:24)
[2018-09-04 20:00] VITALS: BP 145/107
[2018-09-04] MEDS: INSULIN GLARGINE UD 100 UNITS/ML SYR SUBCUT SCH (22:05)
[2018-09-05] VITALS (7 sets, daily range): BP systolic 126–167; BP diastolic 78–106
[2018-09-05] MEDS: IPRATROPIUM/ALBUTEROL 0.5-3(2.5)MG/3ML NEB HHN SCH ×4 (01:50→21:54)
[2018-09-05] MEDS: CHLORDIAZEPOXIDE 25MG CAPSULE PO SCH ×3 (06:20→21:04)
[2018-09-05] MEDS: INSULIN LISPRO 100 UNITS/ML SUBCUT SCH ×7 (06:23→21:09)
[2018-09-05] MEDS: BLOOD SUGAR DIAGNOSTIC STRIP TEST SCH ×4 (06:44→20:40)
[2018-09-05 07:32] LABS: BASOPHILS % 1.1 % (0.0-2.0); EOSINOPHILS % 2.5 % (0.0-5.0); HEMATOCRIT. 37.3 % (42.0-52.0); HEMOGLOBIN. 11.6 g/dL (14.0-18.0); LYMPHOCYTES % 23.4 % (20.0-50.0); MEAN CORPUSCULAR HEMOGLOBIN 26.4 pg (28.0-32.0); MEAN CORPUSCULAR VOLUME 84.8 fL (80.0-94.0); MEAN PLATELET VOLUME 8.5 fl (7.4-10.4); MONOCYTES % 9.1 % (2.0-8.0); NEUTROPHILS % 63.9 % (40.0-76.0); PLATELET 284 x1000/uL (130-400); RED BLOOD CELL COUNT 4.39 mill/uL (4.7-6.1); RED CELL DISTRIBUTION WIDTH 15.7 % (11.6-14.6)
[2018-09-05] MEDS: BUDESONIDE 0.5MG/2ML NEB HHN SCH ×3 (08:44→21:54)
[2018-09-05] MEDS: NICOTINE 14MG PATCH TD SCH (09:28)
[2018-09-05] MEDS: FOLIC ACID 1MG TABLET PO SCH (09:29)
[2018-09-05] MEDS: FERROUS SULFATE 325MG TABLET PO SCH ×3 (09:29→16:44)
[2018-09-05] MEDS: POTASSIUM CHLORIDE 20MEQ TABLET SR PO SCH (09:29)
[2018-09-05] MEDS: FUROSEMIDE 40MG/4ML VIAL IV SCH (09:29)
[2018-09-05] MEDS: THIAMINE HCL 100MG TABLET PO SCH (09:29)
[2018-09-05] MEDS: ENOXAPARIN 40MG/0.4ML SYR SUBCUT SCH (09:29)
[2018-09-05] MEDS: ASPIRIN 81MG EC TABLET PO SCH (09:30)
[2018-09-05] MEDS: MULTIVITAMINS,THER W-MINERALS TABLET PO SCH (09:30)
[2018-09-05] MEDS: AZITHROMYCIN 500 MG TABLET PO SCH (09:30)
[2018-09-05] MEDS: CARVEDILOL 6.25 MG TABLET PO SCH ×2 (09:30→20:19)
[2018-09-05] MEDS: CLONIDINE 0.1MG TABLET PO PRN ×2 (09:40→21:04)
[2018-09-05] MEDS: GUAIFENESIN-DM 200MG-20MG/10ML UDC PO PRN ×2 (09:40→20:59)
[2018-09-05] MEDS: CEFTRIAXONE 1 G PREMIX 50 ML IV SCH (15:01)
[2018-09-05 18:52] LABS: *AMPHETAMINES SCREEN URINE NEGATIVE (NEGATIVE); *BARBITURATES SCREEN URINE NEGATIVE (NEGATIVE); CANNABINOID URINE SCREEN NEGATIVE (NEGATIVE)
[2018-09-05 18:53] LABS: *BENZODIAZEPINES SCREEN URINE PRESUMTIVE POSITIVE (NEGATIVE); *COCAINE SCREEN URINE PRESUMTIVE POSITIVE (NEGATIVE); METHADONE URINE SCREEN NEGATIVE (NEGATIVE); OPIATES URINE SCREEN NEGATIVE (NEGATIVE); PHENCYCLIDINE URINE SCREEN NEGATIVE (NEGATIVE)
[2018-09-05] MEDS: HYDROCODONE/ACETAMINOPHEN 5/325MG TABLET PO PRN (21:01)
[2018-09-05] MEDS: INSULIN GLARGINE UD 100 UNITS/ML SYR SUBCUT SCH (21:09)
[2018-09-06] VITALS: BP 146/105
[2018-09-06] MEDS: IPRATROPIUM/ALBUTEROL 0.5-3(2.5)MG/3ML NEB HHN SCH ×3 (01:00→16:18)
[2018-09-06 04:00] VITALS: BP 130/80
[2018-09-06] MEDS: CHLORDIAZEPOXIDE 25MG CAPSULE PO SCH ×2 (05:46→13:54)
[2018-09-06] MEDS: BLOOD SUGAR DIAGNOSTIC STRIP TEST SCH ×2 (06:24→12:25)
[2018-09-06] MEDS: INSULIN LISPRO 100 UNITS/ML SUBCUT SCH ×4 (06:43→12:51)
[2018-09-06 07:59] LABS: BASOPHILS % 2.4 % (0.0-2.0); EOSINOPHILS % 2.8 % (0.0-5.0); HEMATOCRIT. 37.5 % (42.0-52.0); LYMPHOCYTES % 22.8 % (20.0-50.0); MEAN CORPUSCULAR HEMOGLOBIN 26.9 pg (28.0-32.0); MEAN PLATELET VOLUME 8.9 fl (7.4-10.4); MONOCYTES % 10.2 % (2.0-8.0); NEUTROPHILS % 61.8 % (40.0-76.0); PLATELET 310 x1000/uL (130-400); RED BLOOD CELL COUNT 4.46 mill/uL (4.7-6.1); RED CELL DISTRIBUTION WIDTH 15.9 % (11.6-14.6)
[2018-09-06 08:00] VITALS: BP 144/80
[2018-09-06] MEDS: ENOXAPARIN 40MG/0.4ML SYR SUBCUT SCH (08:25)
[2018-09-06] MEDS: AZITHROMYCIN 500 MG TABLET PO SCH (08:26)
[2018-09-06] MEDS: FUROSEMIDE 40MG/4ML VIAL IV SCH (08:26)
[2018-09-06] MEDS: THIAMINE HCL 100MG TABLET PO SCH (08:26)
[2018-09-06] MEDS: FERROUS SULFATE 325MG TABLET PO SCH ×2 (08:26→12:55)
[2018-09-06] MEDS: CARVEDILOL 6.25 MG TABLET PO SCH (08:26)
[2018-09-06] MEDS: POTASSIUM CHLORIDE 20MEQ TABLET SR PO SCH (08:26)
[2018-09-06] MEDS: ASPIRIN 81MG EC TABLET PO SCH (08:26)
[2018-09-06] MEDS: FOLIC ACID 1MG TABLET PO SCH (08:26)
[2018-09-06] MEDS: NICOTINE 14MG PATCH TD SCH (08:27)
[2018-09-06] MEDS: MULTIVITAMINS,THER W-MINERALS TABLET PO SCH (08:30)
[2018-09-06] MEDS: BUDESONIDE 0.5MG/2ML NEB HHN SCH (10:25)
[2018-09-06 12:00] VITALS: BP 134/90
[2018-09-06] MEDS: HYDROCODONE/ACETAMINOPHEN 5/325MG TABLET PO PRN (12:48)
[2018-09-06] MEDS: CEFTRIAXONE 1 G PREMIX 50 ML IV SCH (15:52)
[2018-09-06 16:00] VITALS: BP 130/85
[2018-09-06 16:19] VITALS: BP 130/85
== END 2018-09-06 18:15 | disposition home or self-care (01) | DRG 816 ==
LOC: ER 11:57 → 8WST 14:49 → EDBEDREQ 14:57 → EDBEDREQTM 14:57 → ENRESERV 18:13
PROVIDERS: ADMIT Internal Medicine; ATTEND Internal Medicine
DX: T40.5X1A Poisoning by cocaine, accidental (unintentional), initial encounter (principal); J96.01 Acute respiratory failure with hypoxia; A41.9 Sepsis, unspecified organism; I50.23 Acute on chronic systolic (congestive) heart failure; J18.9 Pneumonia, unspecified organism; I42.9 Cardiomyopathy, unspecified; I11.0 Hypertensive heart disease with heart failure; E11.65 Type 2 diabetes mellitus with hyperglycemia; D50.9 Iron deficiency anemia, unspecified; F10.20 Alcohol dependence, uncomplicated; Y92.89 Other specified places as the place of occurrence of the external cause; F17.200 Nicotine dependence, unspecified, uncomplicated; J44.0 Chronic obstructive pulmonary disease with (acute) lower respiratory infection; J44.1 Chronic obstructive pulmonary disease with (acute) exacerbation; E78.5 Hyperlipidemia, unspecified; G43.909 Migraine, unspecified, not intractable, without status migrainosus; Z79.4 Long term (current) use of insulin; Z86.73 Personal history of transient ischemic attack (TIA), and cerebral infarction without residual deficits; Z91.19 Patient's noncompliance with other medical treatment and regimen
CPT/HCPCS: 36415; 36600; 71045; 80048; 80305; 82010; 82375; 82550; 82553; 82805; 82962; 83605; 83735; 83880; 84484; 85379; 93005; 94640; 96365; 96366; 96368; 96375; 99285; G0482; J0456; J0696; J1650; J1815; J1940; J2930; J7040; J7060; J7620; J7626

== ENCOUNTER 2018-11-22 19:56 | Inpatient (IN) | payer MEDICAID ==
[~2018-11-22] VITALS: Ht 175.3 cm; Wt 66.7 kg
[~2018-11-22 19:56] MED LIST changes: -ALBU6.7H INH; -ASA5EC PO; -AZIT500T5 MT; -BUSP30TA2 PO; -CLOP75TA33 PO; -COR6 PO; +FURO-151 PO; -INSLIS SQ; +INSU100I13 SQ; +INSU100I28 SQ; -INSU3INS6 SUBCUT; -L25 PO; -LATA2.5D2 EACHEYE; -LIP40 PO; -LOSA25TA3 PO; -SERT50TA PO; +VENTOLIN 90 MCG BC
[2018-11-22] MEDS ORDERED: KETOROLAC 30MG/ML VIAL IV STA (20:23)
[2018-11-22] MEDS ORDERED: METHYLPREDNISOLONE SOD SUCC 125 MG/2 ML VIAL IV STA (20:23)
[2018-11-22] MEDS ORDERED: ONDANSETRON HCL 4MG/2ML INJ IV STA (20:23)
[2018-11-22] MEDS ORDERED: ACETAMINOPHEN 325MG TABLET PO STA (20:23)
[2018-11-22] MEDS ORDERED: SODIUM CHLORIDE 0.9% 1,000 ML IV ONE (20:23)
[2018-11-22] MEDS ORDERED: MORPHINE SULFATE 4 MG/ML CPJ (NOT FOR IM USE) IV STA (20:23)
[2018-11-22] MEDS ORDERED: IPRATROPIUM/ALBUTEROL 0.5-3(2.5)MG/3ML NEB HHN ONE (20:45)
[2018-11-22 21:01] LABS: BG BASE EXCESS 1.1 mmol/L (-2.0-2.0); BG CARBOXYHEMOGLOBIN 0.6 % (0.5-1.5); BG DEOXYHEMOGLOBIN 10.9 % (0.0-5.0); BG FRACTION INSPIRED OXYGEN 28; BG HCO3 ACT 23.7 mmol/L (22.0-26.0); BG METHEMOGLOBIN 0.2 % (0.0-1.5); BG OXYHEMOGLOBIN 88.3 % (94.0-97.0); BG PCO2 31.8 mmHg (35.0-45.0); BG PH 7.491 (7.350-7.450); BG PO2 53.1 mmHg (75.0-100.0); BG SAMPLE SITE LEFT RADIAL; BG TOTAL HEMOGLOBIN 13.2 g/dL (12.0-18.0); BG VENT MODE NASAL CANNULA
[2018-11-22 22:27] LABS: HEMATOCRIT. 37.4 % (42.0-52.0); HEMOGLOBIN. 12.2 g/dL (14.0-18.0); MEAN CORPUSCULAR HEMOGLOBIN 26.6 pg (28.0-32.0); MEAN CORPUSCULAR VOLUME 81.3 fL (80.0-94.0); MEAN PLATELET VOLUME 8.6 fl (7.4-10.4); PLATELET 210 x1000/uL (130-400); RED BLOOD CELL COUNT 4.59 mill/uL (4.7-6.1); RED CELL DISTRIBUTION WIDTH 15.3 % (11.6-14.6)
[2018-11-22 22:33] LABS: CHLORIDE 100 mEq/L (98-107)
[2018-11-22 22:35] LABS: INR 1.1; PARTIAL THROMBOPLASTIN TIME 32.9 sec (23.4-31.0); PROTHROMBIN TIME 11.3 sec (9.1-11.1)
[2018-11-22 22:37] LABS: ETHANOL BLOOD < 10 mg/dL
[2018-11-22 23:15] LABS: ATYPICAL LYMPHOCYTES 1
[2018-11-22 23:16] LABS: PLATELET ESTIMATE NORMAL
[2018-11-23] MEDS ORDERED: INSULIN REGULAR (HUMULIN R) 300UNITS/3ML SUBCUT SCH (04:45)
[2018-11-23 06:50] VITALS: BP 128/89
[2018-11-23 08:00] VITALS: BP 128/89
[2018-11-23] MEDS ORDERED: DEXTROSE 50% WATER 50ML SYRINGE IV PRN (10:30)
[2018-11-23] MEDS: ONDANSETRON 4MG ODT PO PRN ×2 (10:31→17:33)
[2018-11-23 12:00] VITALS: BP 141/99
[2018-11-23] MEDS ORDERED: SODIUM CHLORIDE 0.9% 1,000 ML IV ONE (12:00)
[2018-11-23] MEDS: BLOOD SUGAR DIAGNOSTIC STRIP TEST SCH ×3 (12:35→21:16)
[2018-11-23] MEDS: GUAIFENESIN-DM 200MG-20MG/10ML UDC PO PRN ×2 (12:35→21:13)
[2018-11-23] MEDS: INSULIN LISPRO 100 UNITS/ML SUBCUT SCH ×3 (12:37→21:16)
[2018-11-23 13:22] LABS: HEMATOCRIT 40.6 % (42.0-52.0); HEMOGLOBIN 13.1 g/dL (14.0-18.0); MEAN CORPUSCULAR HEMOGLOBIN 26.6 pg (28.0-32.0); MEAN CORPUSCULAR VOLUME 82.4 fL (80.0-94.0); PLATELET 205 x1000/uL (130-400); RED BLOOD CELL COUNT 4.92 mill/uL (4.7-6.1); RED CELL DISTRIBUTION WIDTH 15.1 % (11.6-14.6)
[2018-11-23 13:33] LABS: BG BASE EXCESS -3.3 mmol/L (-2.0-2.0); BG CARBOXYHEMOGLOBIN 0.4 % (0.5-1.5); BG DEOXYHEMOGLOBIN 3.7 % (0.0-5.0); BG FRACTION INSPIRED OXYGEN 28; BG HCO3 ACT 22.2 mmol/L (22.0-26.0); BG METHEMOGLOBIN 0.2 % (0.0-1.5); BG OXYGEN SATURATION 96.3 % (92.0-98.5); BG OXYHEMOGLOBIN 95.7 % (94.0-97.0); BG PCO2 41.6 mmHg (35.0-45.0); BG PH 7.346 (7.350-7.450); BG SAMPLE SITE RIGHT BRACHIAL; BG TOTAL HEMOGLOBIN 14.3 g/dL (12.0-18.0); BG VENT MODE NASAL CANNULA
[2018-11-23] MEDS ORDERED: CLON-457 MT (15:27)
[2018-11-23] MEDS ORDERED: GABA-531 MT (15:27)
[2018-11-23] MEDS ORDERED: HYDR-4134 MT (15:27)
[2018-11-23] MEDS ORDERED: NITR0.4T49 SL (15:27)
[2018-11-23] MEDS ORDERED: SERT-112 MT (15:27)
[2018-11-23] MEDS ORDERED: GLIP5TAB12 MT (15:27)
[2018-11-23] MEDS ORDERED: LISI-186 MT (15:27)
[2018-11-23] MEDS ORDERED: AMLO10TA80 MT (15:27)
[2018-11-23 16:00] VITALS: BP 132/87
[2018-11-23] MEDS: BUDESONIDE 0.5MG/2ML NEB HHN SCH ×2 (16:38→23:11)
[2018-11-23] MEDS: IPRATROPIUM/ALBUTEROL 0.5-3(2.5)MG/3ML NEB HHN SCH ×3 (16:38→23:10)
[2018-11-23] MEDS: ENOXAPARIN 40MG/0.4ML SYR SUBCUT SCH (17:33)
[2018-11-23] MEDS ORDERED: CHLORPROMAZINE HCL 25MG/1ML AMP IM PRN (17:45)
[2018-11-23 20:00] VITALS: BP 98/67
[2018-11-23] MEDS: INSULIN GLARGINE UD 100 UNITS/ML SYR SUBCUT SCH (21:16)
[2018-11-23 22:56] LABS: *AMPHETAMINES SCREEN URINE NEGATIVE (NEGATIVE); *BARBITURATES SCREEN URINE NEGATIVE (NEGATIVE); *BENZODIAZEPINES SCREEN URINE NEGATIVE (NEGATIVE); *COCAINE SCREEN URINE PRESUMTIVE POSITIVE (NEGATIVE); METHADONE URINE SCREEN NEGATIVE (NEGATIVE); OPIATES URINE SCREEN PRESUMTIVE POSITIVE (NEGATIVE)
[2018-11-23 22:57] LABS: CANNABINOID URINE SCREEN NEGATIVE (NEGATIVE); PHENCYCLIDINE URINE SCREEN NEGATIVE (NEGATIVE)
[2018-11-24] VITALS: BP 96/62
[2018-11-24] MEDS ORDERED: AZITHROMYCIN 500 MG in DEXT 5% WATER 250 ML IV SCH (03:00)
[2018-11-24 04:00] VITALS: BP 106/74
[2018-11-24] MEDS: GUAIFENESIN-DM 200MG-20MG/10ML UDC PO PRN (04:11)
[2018-11-24] MEDS: CEFTRIAXONE 1 G PREMIX 50 ML IV SCH (04:17)
[2018-11-24] MEDS: IPRATROPIUM/ALBUTEROL 0.5-3(2.5)MG/3ML NEB HHN SCH ×4 (04:59→20:25)
[2018-11-24] MEDS: INSULIN LISPRO 100 UNITS/ML SUBCUT SCH ×4 (06:29→21:12)
[2018-11-24] MEDS: BLOOD SUGAR DIAGNOSTIC STRIP TEST SCH ×3 (06:29→21:00)
[2018-11-24 08:00] VITALS: BP 130/84
[2018-11-24] MEDS: BUDESONIDE 0.5MG/2ML NEB HHN SCH ×2 (08:51→20:25)
[2018-11-24] MEDS: ENOXAPARIN 40MG/0.4ML SYR SUBCUT SCH (09:41)
[2018-11-24 09:42] LABS: BASOPHILS % 0.6 % (0.0-2.0); HEMATOCRIT. 35.6 % (42.0-52.0); HEMOGLOBIN. 11.5 g/dL (14.0-18.0); LYMPHOCYTES % 11.7 % (20.0-50.0); MEAN CORPUSCULAR HEMOGLOBIN 26.1 pg (28.0-32.0); MEAN CORPUSCULAR VOLUME 80.9 fL (80.0-94.0); MEAN PLATELET VOLUME 8.8 fl (7.4-10.4); MONOCYTES % 4.3 % (2.0-8.0); NEUTROPHILS % 83.4 % (40.0-76.0); PLATELET 191 x1000/uL (130-400); RED CELL DISTRIBUTION WIDTH 15.4 % (11.6-14.6)
[2018-11-24] MEDS: ACETAMINOPHEN 325MG TABLET PO PRN ×3 (10:28→12:36)
[2018-11-24 12:00] VITALS: BP 115/71
[2018-11-24] MEDS: PREDNISONE 20MG TABLET PO SCH ×2 (14:17→17:39)
[2018-11-24 20:00] VITALS: BP 145/101
[2018-11-24] MEDS: HYDROCODONE/ACETAMINOPHEN 10/325MG TABLET PO PRN (21:10)
[2018-11-24] MEDS: INSULIN GLARGINE UD 100 UNITS/ML SYR SUBCUT SCH (21:12)
[2018-11-25] VITALS (7 sets, daily range): BP systolic 123–160; BP diastolic 80–105
[2018-11-25] MEDS: IPRATROPIUM/ALBUTEROL 0.5-3(2.5)MG/3ML NEB HHN SCH ×6 (00:35→20:05)
[2018-11-25] MEDS: CEFTRIAXONE 1 G PREMIX 50 ML IV SCH (02:32)
[2018-11-25] MEDS: AZITHROMYCIN 500 MG in SODIUM CHLORIDE 0.9% 250 ML IV SCH (04:45)
[2018-11-25] MEDS: INSULIN LISPRO 100 UNITS/ML SUBCUT SCH ×5 (06:41→20:54)
[2018-11-25 06:42] LABS: BASOPHILS % 0.3 % (0.0-2.0); HEMATOCRIT. 37.2 % (42.0-52.0); HEMOGLOBIN. 12.2 g/dL (14.0-18.0); LYMPHOCYTES % 11.6 % (20.0-50.0); MEAN CORPUSCULAR HEMOGLOBIN 26.6 pg (28.0-32.0); MEAN CORPUSCULAR VOLUME 81.2 fL (80.0-94.0); NEUTROPHILS % 82.1 % (40.0-76.0); PLATELET 190 x1000/uL (130-400); RED BLOOD CELL COUNT 4.58 mill/uL (4.7-6.1); RED CELL DISTRIBUTION WIDTH 15.3 % (11.6-14.6)
[2018-11-25] MEDS: BLOOD SUGAR DIAGNOSTIC STRIP TEST SCH ×4 (06:45→20:54)
[2018-11-25] MEDS: BUDESONIDE 0.5MG/2ML NEB HHN SCH (08:22)
[2018-11-25] MEDS: PREDNISONE 20MG TABLET PO SCH ×3 (09:04→16:49)
[2018-11-25] MEDS: ENOXAPARIN 40MG/0.4ML SYR SUBCUT SCH (09:04)
[2018-11-25] MEDS: GUAIFENESIN-DM 200MG-20MG/10ML UDC PO PRN (13:35)
[2018-11-25] MEDS: ONDANSETRON 4MG ODT PO PRN (13:35)
[2018-11-25] MEDS: PANTOPRAZOLE SODIUM 40 MG/VIAL IV SCH (15:06)
[2018-11-25] MEDS: ONDANSETRON HCL 4MG/2ML INJ IV SCH ×2 (15:50→22:06)
[2018-11-25] MEDS: INSULIN GLARGINE UD 100 UNITS/ML SYR SUBCUT SCH (22:00)
[2018-11-25] MEDS: METOCLOPRAMIDE HCL 10MG/2ML VIAL IV SCH (22:06)
[2018-11-25] MEDS: HYDROCODONE/ACETAMINOPHEN 10/325MG TABLET PO PRN (22:36)
[2018-11-26] VITALS (8 sets, daily range): BP systolic 123–149; BP diastolic 80–104
[2018-11-26] MEDS: IPRATROPIUM/ALBUTEROL 0.5-3(2.5)MG/3ML NEB HHN SCH ×6 (00:06→21:07)
[2018-11-26] MEDS: CEFTRIAXONE 1 G PREMIX 50 ML IV SCH (02:44)
[2018-11-26] MEDS: HYDROCODONE/ACETAMINOPHEN 10/325MG TABLET PO PRN (05:47)
[2018-11-26] MEDS: AZITHROMYCIN 500 MG in SODIUM CHLORIDE 0.9% 250 ML IV SCH (05:48)
[2018-11-26] MEDS: BLOOD SUGAR DIAGNOSTIC STRIP TEST SCH ×4 (06:32→21:09)
[2018-11-26 06:38] LABS: BASOPHILS % 0.1 % (0.0-2.0); HEMATOCRIT. 36.8 % (42.0-52.0); HEMOGLOBIN. 12.1 g/dL (14.0-18.0); LYMPHOCYTES % 9.6 % (20.0-50.0); MEAN CORPUSCULAR HEMOGLOBIN 26.6 pg (28.0-32.0); MEAN CORPUSCULAR VOLUME 80.7 fL (80.0-94.0); MEAN PLATELET VOLUME 9.2 fl (7.4-10.4); MONOCYTES % 6.9 % (2.0-8.0); NEUTROPHILS % 83.4 % (40.0-76.0); PLATELET 217 x1000/uL (130-400); RED BLOOD CELL COUNT 4.55 mill/uL (4.7-6.1); RED CELL DISTRIBUTION WIDTH 15.5 % (11.6-14.6)
[2018-11-26] MEDS: INSULIN LISPRO 100 UNITS/ML SUBCUT SCH ×7 (06:48→21:08)
[2018-11-26] MEDS: METOCLOPRAMIDE HCL 10MG/2ML VIAL IV SCH ×3 (06:48→21:08)
[2018-11-26] MEDS: ONDANSETRON HCL 4MG/2ML INJ IV SCH ×3 (06:48→21:08)
[2018-11-26] MEDS: BUDESONIDE 0.5MG/2ML NEB HHN SCH ×2 (08:00→21:08)
[2018-11-26] MEDS ORDERED: CLONIDINE HCL MT SCH (09:00)
[2018-11-26] MEDS ORDERED: MEDICATION NOT ON FORMULARY EA (Hydralazine Hcl 1 TAB) MT SCH (09:00)
[2018-11-26] MEDS: PREDNISONE 20MG TABLET PO SCH ×3 (09:21→17:28)
[2018-11-26] MEDS: PANTOPRAZOLE SODIUM 40 MG/VIAL IV SCH (09:21)
[2018-11-26] MEDS: ENOXAPARIN 40MG/0.4ML SYR SUBCUT SCH (09:22)
[2018-11-26] MEDS: HYDRALAZINE HCL 25MG TABLET PO SCH ×3 (09:56→21:09)
[2018-11-26] MEDS: AMLODIPINE 10MG TABLET PO SCH (09:57)
[2018-11-26] MEDS ORDERED: FUROSEMIDE 20MG/2ML VIAL IVP NR (18:45)
[2018-11-26] MEDS: INSULIN GLARGINE UD 100 UNITS/ML SYR SUBCUT SCH (22:45)
[2018-11-27] VITALS (7 sets, daily range): BP systolic 130–140; BP diastolic 88–96
[2018-11-27] MEDS: IPRATROPIUM/ALBUTEROL 0.5-3(2.5)MG/3ML NEB HHN SCH ×5 (00:47→15:46)
[2018-11-27] MEDS: CEFTRIAXONE 1 G PREMIX 50 ML IV SCH (02:57)
[2018-11-27] MEDS: HYDROCODONE/ACETAMINOPHEN 10/325MG TABLET PO PRN ×3 (03:29→18:56)
[2018-11-27] MEDS: METOCLOPRAMIDE HCL 10MG/2ML VIAL IV SCH ×2 (05:10→13:28)
[2018-11-27] MEDS: AZITHROMYCIN 500 MG in SODIUM CHLORIDE 0.9% 250 ML IV SCH (05:10)
[2018-11-27] MEDS: ONDANSETRON HCL 4MG/2ML INJ IV SCH ×2 (05:10→14:11)
[2018-11-27] MEDS: BLOOD SUGAR DIAGNOSTIC STRIP TEST SCH ×3 (06:17→17:33)
[2018-11-27] MEDS: HYDRALAZINE HCL 25MG TABLET PO SCH ×2 (06:56→14:11)
[2018-11-27] MEDS: INSULIN LISPRO 100 UNITS/ML SUBCUT SCH ×6 (06:59→17:38)
[2018-11-27 07:27] LABS: BASOPHILS % 0.2 % (0.0-2.0); HEMATOCRIT. 36.3 % (42.0-52.0); HEMOGLOBIN. 11.7 g/dL (14.0-18.0); LYMPHOCYTES % 8.5 % (20.0-50.0); MEAN CORPUSCULAR HEMOGLOBIN 25.9 pg (28.0-32.0); MEAN CORPUSCULAR VOLUME 80.4 fL (80.0-94.0); MEAN PLATELET VOLUME 8.9 fl (7.4-10.4); MONOCYTES % 7.2 % (2.0-8.0); NEUTROPHILS % 84.1 % (40.0-76.0); PLATELET 244 x1000/uL (130-400); RED BLOOD CELL COUNT 4.51 mill/uL (4.7-6.1); RED CELL DISTRIBUTION WIDTH 15.1 % (11.6-14.6)
[2018-11-27] MEDS: PANTOPRAZOLE SODIUM 40 MG/VIAL IV SCH (08:33)
[2018-11-27] MEDS: ENOXAPARIN 40MG/0.4ML SYR SUBCUT SCH (08:34)
[2018-11-27] MEDS: PREDNISONE 20MG TABLET PO SCH ×3 (08:38→17:38)
[2018-11-27] MEDS: AMLODIPINE 10MG TABLET PO SCH (08:38)
[2018-11-27] MEDS ORDERED: FAMOTIDINE 20MG/2ML VIAL IV SCH (21:00)
== END 2018-11-27 20:25 | disposition home or self-care (01) | DRG 133 ==
LOC: ER 19:56 → 5WST 21:28 → EDBEDREQTM 21:30 → EDBEDREQ 21:30 → ENRESERV 11-23 03:20
PROVIDERS: ADMIT Internal Medicine; ATTEND Internal Medicine
DX: J96.01 Acute respiratory failure with hypoxia (principal); J18.9 Pneumonia, unspecified organism; N17.9 Acute kidney failure, unspecified; E11.22 Type 2 diabetes mellitus with diabetic chronic kidney disease; I13.0 Hypertensive heart and chronic kidney disease with heart failure and stage 1 through stage 4 chronic kidney disease, or unspecified chronic kidney disease; E11.65 Type 2 diabetes mellitus with hyperglycemia; R65.10 Systemic inflammatory response syndrome (SIRS) of non-infectious origin without acute organ dysfunction; I50.22 Chronic systolic (congestive) heart failure; E87.1 Hypo-osmolality and hyponatremia; N18.9 Chronic kidney disease, unspecified; J44.0 Chronic obstructive pulmonary disease with (acute) lower respiratory infection; J20.9 Acute bronchitis, unspecified; G89.29 Other chronic pain; F14.10 Cocaine abuse, uncomplicated; F17.200 Nicotine dependence, unspecified, uncomplicated; Z79.4 Long term (current) use of insulin; Z87.820 Personal history of traumatic brain injury
CPT/HCPCS: 36415; 36600; 71045; 74018; 80048; 80305; 80320; 82375; 82805; 82962; 83036; 83605; 83880; 84484; 85027; 87070; 87804; 93005; 94640; 96372; 96374; 96375; 97162; 99285; C9113; J0456; J0696; J1650; J1815; J1885; J1940; J2270; J2405; J2765; J2930; J7030; J7050; J7060; J7512; J7620; J7626; Q0162; G0480

== ENCOUNTER 2019-01-05 03:00 | Inpatient (IN) | payer MEDICAID ==
[~2019-01-05] VITALS: Ht 175.3 cm; Wt 734.4 kg
[~2019-01-05 03:00] MED LIST changes: +AMLO10TA80 MT; +AMLO10TA80 PO; -AMLO2.5T45 PO; +ATOR-2 MT; +CLON-457 MT; +FAMO20TA8 PO; -FERR325T23 PO; -FOLI-43 PO; -FURO-151 PO; +FURO40TA5 PO; +GABA-531 MT; +GABA-531 PO; +GLIP5TAB12 MT; +GLIP5TAB12 PO; +HYDR-4134 MT; +INSU100I24 SQ; -INSU100I28 SQ; +LISI-186 MT; +MELA5TAB21 MT; +NITR0.4T49 SL; +SERT-112 MT; +SERT50TA PO; -THIA100T72 PO; -VENTOLIN 90 MCG BC
[2019-01-05] MEDS ORDERED: FUROSEMIDE 40MG/4ML VIAL IV ONE (03:45)
[2019-01-05] MEDS ORDERED: NITROGLYCERIN OINT 1GM/INCH UDPKT TD ONE (03:45)
[2019-01-05 04:16] LABS: BASOPHILS % 0.6 % (0.0-2.0); EOSINOPHILS % 0.7 % (0.0-5.0); HEMATOCRIT. 36.1 % (42.0-52.0); HEMOGLOBIN. 11.6 g/dL (14.0-18.0); LYMPHOCYTES % 16.6 % (20.0-50.0); MEAN CORPUSCULAR HEMOGLOBIN 26.5 pg (28.0-32.0); MEAN CORPUSCULAR VOLUME 82.6 fL (80.0-94.0); MEAN PLATELET VOLUME 7.4 fl (7.4-10.4); MONOCYTES % 11.9 % (2.0-8.0); NEUTROPHILS % 70.2 % (40.0-76.0); PLATELET 323 x1000/uL (130-400); RED BLOOD CELL COUNT 4.37 mill/uL (4.7-6.1); RED CELL DISTRIBUTION WIDTH 16.5 % (11.6-14.6)
[2019-01-05 04:24] LABS: CHLORIDE 107 mEq/L (98-107)
[2019-01-05 07:50] VITALS: BP 151/103
[2019-01-05] MEDS ORDERED: DEXTROSE 50% WATER 50ML SYRINGE IV PRN (08:15)
[2019-01-05] MEDS ORDERED: AMLODIPINE 5MG TABLET PO SCH (09:00)
[2019-01-05] MEDS ORDERED: FUROSEMIDE 40MG/4ML VIAL IVP SCH (09:00)
[2019-01-05] MEDS: ASPIRIN 325MG EC TABLET PO SCH (09:33)
[2019-01-05] MEDS: LISINOPRIL 20MG TABLET PO SCH (09:37)
[2019-01-05] MEDS: CARVEDILOL 6.25 MG TABLET PO SCH ×2 (09:37→20:58)
[2019-01-05] MEDS: POTASSIUM CHLORIDE 20MEQ TABLET SR PO NR (10:21)
[2019-01-05] MEDS: NITROGLYCERIN OINT 1GM/INCH UDPKT TD SCH ×2 (10:22→18:03)
[2019-01-05] MEDS: INSULIN LISPRO 100 UNITS/ML SUBCUT SCH ×4 (10:26→20:31)
[2019-01-05 12:00] VITALS: BP 132/88
[2019-01-05] MEDS ORDERED: INSULIN LISPRO 100 UNITS/ML SUBCUT SCH (12:50)
[2019-01-05] MEDS: BLOOD SUGAR DIAGNOSTIC STRIP TEST SCH ×3 (12:53→20:31)
[2019-01-05] MEDS: ENOXAPARIN 40MG/0.4ML SYR SUBCUT SCH (13:13)
[2019-01-05 14:21] VITALS: BP 132/88
[2019-01-05 16:00] VITALS: BP 142/97
[2019-01-05 16:52] LABS: *AMPHETAMINES SCREEN URINE NEGATIVE (NEGATIVE); *BARBITURATES SCREEN URINE NEGATIVE (NEGATIVE)
[2019-01-05 16:53] LABS: *BENZODIAZEPINES SCREEN URINE NEGATIVE (NEGATIVE); *COCAINE SCREEN URINE PRESUMTIVE POSITIVE (NEGATIVE); CANNABINOID URINE SCREEN NEGATIVE (NEGATIVE); METHADONE URINE SCREEN NEGATIVE (NEGATIVE); OPIATES URINE SCREEN NEGATIVE (NEGATIVE); PHENCYCLIDINE URINE SCREEN NEGATIVE (NEGATIVE)
[2019-01-05] MEDS: POTASSIUM CHLORIDE 20MEQ TABLET SR PO SCH (18:02)
[2019-01-05 20:00] VITALS: BP 138/87
[2019-01-05] MEDS: FUROSEMIDE 40MG/4ML VIAL IVP SCH (20:58)
[2019-01-05] MEDS: ATORVASTATIN CALCIUM 20MG TABLET PO SCH (20:58)
[2019-01-05] MEDS: AMLODIPINE 5MG TABLET PO SCH (20:58)
[2019-01-05] MEDS: HYDROCODONE/ACETAMINOPHEN 5/325MG TABLET PO PRN (20:59)
[2019-01-05] MEDS: INSULIN GLARGINE UD 100 UNITS/ML SYR SUBCUT SCH (21:01)
[2019-01-06] VITALS: BP 142/98
[2019-01-06] MEDS: NITROGLYCERIN OINT 1GM/INCH UDPKT TD SCH ×3 (02:49→18:46)
[2019-01-06 04:00] VITALS: BP 151/99
[2019-01-06] MEDS: HYDROCODONE/ACETAMINOPHEN 5/325MG TABLET PO PRN ×3 (04:14→21:15)
[2019-01-06] MEDS: IPRATROPIUM/ALBUTEROL 0.5-3(2.5)MG/3ML NEB HHN PRN ×4 (04:29→21:17)
[2019-01-06] MEDS: BLOOD SUGAR DIAGNOSTIC STRIP TEST SCH ×4 (06:31→21:11)
[2019-01-06 06:58] LABS: BASOPHILS % 2.1 % (0.0-2.0); EOSINOPHILS % 1.4 % (0.0-5.0); HEMATOCRIT. 38.6 % (42.0-52.0); HEMOGLOBIN. 12.7 g/dL (14.0-18.0); LYMPHOCYTES % 25.1 % (20.0-50.0); MEAN CORPUSCULAR VOLUME 82.1 fL (80.0-94.0); MEAN PLATELET VOLUME 7.8 fl (7.4-10.4); MONOCYTES % 13.5 % (2.0-8.0); NEUTROPHILS % 57.9 % (40.0-76.0); PLATELET 373 x1000/uL (130-400); RED CELL DISTRIBUTION WIDTH 16.1 % (11.6-14.6)
[2019-01-06 07:38] LABS: CHLORIDE 108 mEq/L (98-107)
[2019-01-06 08:00] VITALS: BP 149/112
[2019-01-06] MEDS: POTASSIUM CHLORIDE 20MEQ TABLET SR PO SCH ×2 (10:30→17:00)
[2019-01-06] MEDS: ASPIRIN 325MG EC TABLET PO SCH (10:30)
[2019-01-06] MEDS: LISINOPRIL 20MG TABLET PO SCH (10:30)
[2019-01-06] MEDS: CARVEDILOL 6.25 MG TABLET PO SCH ×2 (10:31→21:11)
[2019-01-06] MEDS: FUROSEMIDE 40MG/4ML VIAL IVP SCH ×2 (10:32→21:11)
[2019-01-06] MEDS: INSULIN LISPRO 100 UNITS/ML SUBCUT SCH ×4 (10:34→21:16)
[2019-01-06] MEDS: INSULIN GLARGINE UD 100 UNITS/ML SYR SUBCUT SCH ×2 (10:36→21:16)
[2019-01-06 12:00] VITALS: BP 151/109
[2019-01-06] MEDS: AMLODIPINE 5MG TABLET PO SCH ×2 (12:25→21:11)
[2019-01-06] MEDS: ENOXAPARIN 40MG/0.4ML SYR SUBCUT SCH (12:26)
[2019-01-06 16:00] VITALS: BP 124/90
[2019-01-06] MEDS: POTASSIUM CHLORIDE 20MEQ TABLET SR PO NR (18:43)
[2019-01-06 20:00] VITALS: BP 152/99
[2019-01-06] MEDS: ATORVASTATIN CALCIUM 20MG TABLET PO SCH (21:11)
[2019-01-07] VITALS (8 sets, daily range): BP systolic 129–145; BP diastolic 87–101
[2019-01-07] MEDS: IPRATROPIUM/ALBUTEROL 0.5-3(2.5)MG/3ML NEB HHN PRN (00:24)
[2019-01-07] MEDS: HYDROCODONE/ACETAMINOPHEN 5/325MG TABLET PO PRN ×3 (02:13→20:51)
[2019-01-07] MEDS: NITROGLYCERIN OINT 1GM/INCH UDPKT TD SCH ×3 (02:14→20:28)
[2019-01-07] MEDS: BLOOD SUGAR DIAGNOSTIC STRIP TEST SCH ×4 (06:47→21:59)
[2019-01-07 06:54] LABS: BASOPHILS % 2.3 % (0.0-2.0); EOSINOPHILS % 1.6 % (0.0-5.0); HEMATOCRIT. 35.6 % (42.0-52.0); HEMOGLOBIN. 11.7 g/dL (14.0-18.0); LYMPHOCYTES % 33.1 % (20.0-50.0); MEAN CORPUSCULAR HEMOGLOBIN 26.9 pg (28.0-32.0); MEAN CORPUSCULAR VOLUME 81.6 fL (80.0-94.0); MEAN PLATELET VOLUME 7.9 fl (7.4-10.4); MONOCYTES % 14.2 % (2.0-8.0); NEUTROPHILS % 48.8 % (40.0-76.0); PLATELET 392 x1000/uL (130-400); RED BLOOD CELL COUNT 4.36 mill/uL (4.7-6.1)
[2019-01-07] MEDS: INSULIN LISPRO 100 UNITS/ML SUBCUT SCH ×4 (07:50→21:58)
[2019-01-07] MEDS: INSULIN GLARGINE UD 100 UNITS/ML SYR SUBCUT SCH ×2 (10:00→21:59)
[2019-01-07] MEDS: FUROSEMIDE 40MG/4ML VIAL IVP SCH ×3 (10:54→20:54)
[2019-01-07] MEDS: AMLODIPINE 5MG TABLET PO SCH ×2 (10:55→20:52)
[2019-01-07] MEDS: CARVEDILOL 6.25 MG TABLET PO SCH ×2 (10:56→20:52)
[2019-01-07] MEDS: POTASSIUM CHLORIDE 20MEQ TABLET SR PO SCH ×2 (10:56→19:00)
[2019-01-07] MEDS: LISINOPRIL 20MG TABLET PO SCH (10:56)
[2019-01-07] MEDS: ASPIRIN 325MG EC TABLET PO SCH (10:56)
[2019-01-07] MEDS: POTASSIUM CHLORIDE 20MEQ TABLET SR PO NR (10:57)
[2019-01-07] MEDS: ENOXAPARIN 40MG/0.4ML SYR SUBCUT SCH (13:11)
[2019-01-07] MEDS ORDERED: ZOLPIDEM TARTRATE 5MG TABLET PO PRN (20:45)
[2019-01-07] MEDS: ATORVASTATIN CALCIUM 20MG TABLET PO SCH (20:51)
[2019-01-08] VITALS (8 sets, daily range): BP systolic 124–138; BP diastolic 84–98
[2019-01-08] MEDS: IPRATROPIUM/ALBUTEROL 0.5-3(2.5)MG/3ML NEB HHN PRN (01:18)
[2019-01-08] MEDS: HYDROCODONE/ACETAMINOPHEN 5/325MG TABLET PO PRN (04:08)
[2019-01-08] MEDS: NITROGLYCERIN OINT 1GM/INCH UDPKT TD SCH ×2 (04:17→13:15)
[2019-01-08] MEDS: FUROSEMIDE 40MG/4ML VIAL IVP SCH ×2 (06:18→14:49)
[2019-01-08] MEDS: BLOOD SUGAR DIAGNOSTIC STRIP TEST SCH ×2 (06:20→12:54)
[2019-01-08] MEDS: INSULIN LISPRO 100 UNITS/ML SUBCUT SCH ×2 (06:20→13:17)
[2019-01-08 06:53] LABS: BASOPHILS % 0.9 % (0.0-2.0); EOSINOPHILS % 1.3 % (0.0-5.0); HEMATOCRIT. 35.2 % (42.0-52.0); HEMOGLOBIN. 11.3 g/dL (14.0-18.0); LYMPHOCYTES % 19.7 % (20.0-50.0); MEAN CORPUSCULAR HEMOGLOBIN 26.4 pg (28.0-32.0); MEAN CORPUSCULAR VOLUME 82.3 fL (80.0-94.0); MEAN PLATELET VOLUME 8.1 fl (7.4-10.4); MONOCYTES % 13.5 % (2.0-8.0); NEUTROPHILS % 64.6 % (40.0-76.0); PLATELET 329 x1000/uL (130-400); RED BLOOD CELL COUNT 4.27 mill/uL (4.7-6.1); RED CELL DISTRIBUTION WIDTH 16.2 % (11.6-14.6)
[2019-01-08] MEDS: INSULIN GLARGINE UD 100 UNITS/ML SYR SUBCUT SCH (10:00)
[2019-01-08] MEDS: POTASSIUM CHLORIDE 20MEQ TABLET SR PO SCH (10:33)
[2019-01-08] MEDS: AMLODIPINE 5MG TABLET PO SCH (10:33)
[2019-01-08] MEDS: CARVEDILOL 6.25 MG TABLET PO SCH (10:34)
[2019-01-08] MEDS: ASPIRIN 325MG EC TABLET PO SCH (10:34)
[2019-01-08] MEDS: LISINOPRIL 20MG TABLET PO SCH (10:34)
[2019-01-08] MEDS: ENOXAPARIN 40MG/0.4ML SYR SUBCUT SCH (13:15)
== END 2019-01-08 17:20 | disposition home or self-care (01) | DRG 194 ==
LOC: ER 03:00 → 6WST 05:30 → EDBEDREQ 05:33 → EDBEDREQTM 05:33 → ENRESERV 07:05 → 7WST 01-07 08:42
PROVIDERS: ADMIT Internal Medicine; ATTEND Internal Medicine
DX: I13.0 Hypertensive heart and chronic kidney disease with heart failure and stage 1 through stage 4 chronic kidney disease, or unspecified chronic kidney disease (principal); E43 Unspecified severe protein-calorie malnutrition; N17.9 Acute kidney failure, unspecified; E11.22 Type 2 diabetes mellitus with diabetic chronic kidney disease; Z68.45 Body mass index [BMI] 70 or greater, adult; I50.23 Acute on chronic systolic (congestive) heart failure; D64.9 Anemia, unspecified; E87.6 Hypokalemia; I42.0 Dilated cardiomyopathy; I34.0 Nonrheumatic mitral (valve) insufficiency; F14.90 Cocaine use, unspecified, uncomplicated; F17.210 Nicotine dependence, cigarettes, uncomplicated; J44.9 Chronic obstructive pulmonary disease, unspecified; R00.0 Tachycardia, unspecified; N18.9 Chronic kidney disease, unspecified; Z71.51 Drug abuse counseling and surveillance of drug abuser; Z79.4 Long term (current) use of insulin; Z87.01 Personal history of pneumonia (recurrent); Z87.820 Personal history of traumatic brain injury
CPT/HCPCS: 36415; 71045; 80048; 80061; 80305; 82962; 83880; 84145; 84484; 93005; 93306; 96374; 99285; J1650; J1815; J1940; J7620

== ENCOUNTER 2019-02-27 10:19 | Inpatient (IN) | payer MEDICAID ==
[~2019-02-27] VITALS: Ht 175.3 cm; Wt 71.2 kg
[~2019-02-27 10:19] MED LIST changes: -GABA-531 MT; -SERT-112 MT
[2019-02-27] MEDS ORDERED: ALBUTEROL (0.083%) 2.5MG/3ML NEB HHN STA (10:38)
[2019-02-27] MEDS ORDERED: METHYLPREDNISOLONE SOD SUCC 125 MG/2 ML VIAL IV STA (10:38)
[2019-02-27] MEDS ORDERED: IPRATROPIUM BROMIDE (0.02%) 0.5MG/2.5ML NEB HHN STA (10:38)
[2019-02-27 11:46] LABS: BASOPHILS % 2.2 % (0.0-2.0); EOSINOPHILS % 1.3 % (0.0-5.0); HEMATOCRIT. 36.5 % (42.0-52.0); HEMOGLOBIN. 11.9 g/dL (14.0-18.0); LYMPHOCYTES % 20.8 % (20.0-50.0); MEAN CORPUSCULAR HEMOGLOBIN 27.3 pg (28.0-32.0); MEAN PLATELET VOLUME 8.3 fl (7.4-10.4); MONOCYTES % 8.7 % (2.0-8.0); PLATELET 230 x1000/uL (130-400); RED BLOOD CELL COUNT 4.35 mill/uL (4.7-6.1); RED CELL DISTRIBUTION WIDTH 14.6 % (11.6-14.6)
[2019-02-27 11:51] LABS: CHLORIDE 107 mEq/L (98-107)
[2019-02-27] MEDS ORDERED: FUROSEMIDE 40MG/4ML VIAL IVP ONE (12:45)
[2019-02-27 14:30] VITALS: BP 153/102
[2019-02-27 16:30] VITALS: BP 153/102
[2019-02-27 16:52] VITALS: BP 153/102
[2019-02-27] MEDS ORDERED: ATOR20TA65 PO (17:06)
[2019-02-27] MEDS ORDERED: ASPI-1158 PO (17:06)
[2019-02-27] MEDS ORDERED: CARV6.2548 PO (17:06)
[2019-02-27] MEDS ORDERED: FURO-151 PO (17:06)
[2019-02-27] MEDS ORDERED: AMLO5TAB4 PO (17:06)
[2019-02-27] MEDS ORDERED: HYDR-4009 PO (17:06)
[2019-02-27] MEDS ORDERED: ASPI-1393 PO (17:06)
[2019-02-27] MEDS ORDERED: ONDANSETRON HCL 4MG/2ML INJ IV PRN (17:15)
[2019-02-27] MEDS ORDERED: DIPHENHYDRAMINE 50MG/ML VIAL IV PRN (17:15)
[2019-02-27] MEDS ORDERED: ACETAMINOPHEN 325MG TABLET PO PRN (17:15)
[2019-02-27] MEDS ORDERED: NA PHOS,M-B/NA PHOS,DI-BA ENEMA 118ML PR PRN (17:15)
[2019-02-27] MEDS ORDERED: LORAZEPAM 2MG/ML CPJ IV PRN (17:15)
[2019-02-27] MEDS ORDERED: MAGNESIUM/ALUMINUM HYDROXIDE/SIMETHICONE 30ML UDC PO PRN (17:15)
[2019-02-27] MEDS ORDERED: GUAIFENESIN 200MG/10ML SUGAR FREE UDC PO PRN (17:15)
[2019-02-27] MEDS ORDERED: IPRATROPIUM/ALBUTEROL 0.5-3(2.5)MG/3ML NEB INH PRN (17:15)
[2019-02-27] MEDS ORDERED: MORPHINE SULFATE 2 MG/ML CPJ (NOT FOR IM USE) IV PRN (17:15)
[2019-02-27] MEDS ORDERED: DOCUSATE SODIUM 100MG CAPSULE PO PRN (17:15)
[2019-02-27] MEDS ORDERED: DEXTROSE 50% WATER 50ML SYRINGE IV PRN ×2 (17:45→20:00)
[2019-02-27] MEDS: HYDROCODONE/ACETAMINOPHEN 5/325MG TABLET PO PRN (19:46)
[2019-02-27 20:00] VITALS: BP 140/86
[2019-02-27] MEDS: BLOOD SUGAR DIAGNOSTIC STRIP TEST SCH (20:43)
[2019-02-27] MEDS: INSULIN LISPRO 100 UNITS/ML SUBCUT SCH (20:43)
[2019-02-27] MEDS ORDERED: BLOOD SUGAR DIAGNOSTIC STRIP TEST SCH (21:00)
[2019-02-27] MEDS ORDERED: INSULIN LISPRO 100 UNITS/ML SUBCUT SCH (21:00)
[2019-02-27] MEDS ORDERED: INSULIN REGULAR (HUMULIN R) 300UNITS/3ML SUBCUT SCH (21:15)
[2019-02-27] MEDS ORDERED: INSULIN REGULAR (HUMULIN R) 300UNITS/3ML SUBCUT PRN (21:15)
[2019-02-27] MEDS ORDERED: INSULIN GLARGINE UD 100 UNITS/ML SYR SUBCUT NR (22:30)
[2019-02-28] VITALS: BP 156/96
[2019-02-28 04:00] VITALS: BP 151/105
[2019-02-28] MEDS: INSULIN LISPRO 100 UNITS/ML SUBCUT SCH ×4 (06:31→20:58)
[2019-02-28] MEDS: BLOOD SUGAR DIAGNOSTIC STRIP TEST SCH ×4 (06:32→20:58)
[2019-02-28] MEDS ORDERED: INSULIN REGULAR (HUMULIN R) 300UNITS/3ML SUBCUT PRN (07:10)
[2019-02-28 08:00] VITALS: BP 145/99
[2019-02-28 08:41] LABS: HEMATOCRIT. 37.5 % (42.0-52.0); HEMOGLOBIN. 12.3 g/dL (14.0-18.0); MEAN CORPUSCULAR HEMOGLOBIN 27.2 pg (28.0-32.0); MEAN CORPUSCULAR VOLUME 82.8 fL (80.0-94.0); MEAN PLATELET VOLUME 8.7 fl (7.4-10.4); PLATELET 280 x1000/uL (130-400); RED BLOOD CELL COUNT 4.54 mill/uL (4.7-6.1); RED CELL DISTRIBUTION WIDTH 14.4 % (11.6-14.6)
[2019-02-28 09:10] LABS: CHLORIDE 106 mEq/L (98-107)
[2019-02-28 09:19] LABS: LDL CHOLESTEROL 103 mg/dL (5-100)
[2019-02-28 09:20] LABS: HDL CHOLESTEROL 79 mg/dL (40-59)
[2019-02-28] MEDS: HYDROCODONE/ACETAMINOPHEN 5/325MG TABLET PO PRN ×2 (09:20→23:16)
[2019-02-28] MEDS: ASPIRIN 81MG EC TABLET PO SCH (09:20)
[2019-02-28 09:21] LABS: T4 FREE 0.88 ng/dL (0.76-1.46)
[2019-02-28] MEDS: FUROSEMIDE 40MG/4ML VIAL IV SCH (09:21)
[2019-02-28] MEDS: INSULIN GLARGINE UD 100 UNITS/ML SYR SUBCUT SCH (10:34)
[2019-02-28 11:37] VITALS: BP 152/102
[2019-02-28 14:30] LABS: PLATELET ESTIMATE NORMAL
[2019-02-28] MEDS: LOSARTAN POTASSIUM 25 MG TABLET PO SCH (15:01)
[2019-02-28] MEDS: CLONIDINE 0.1MG TABLET PO PRN (15:15)
[2019-02-28 15:47] VITALS: BP 158/98
[2019-02-28 16:24] LABS: CREATINE KINASE MB FRACTION 7.5 ng/mL (0.5-3.6)
[2019-02-28] MEDS ORDERED: ENOXAPARIN 40MG/0.4ML SYR SUBCUT SCH (17:00)
[2019-02-28 20:11] VITALS: BP 150/96
[2019-02-28] MEDS: CARVEDILOL 3.125 MG TABLET PO SCH (20:57)
[2019-03-01] VITALS: BP 140/92
[2019-03-01 04:00] VITALS: BP 151/111
[2019-03-01] MEDS: CLONIDINE 0.1MG TABLET PO PRN (04:56)
[2019-03-01] MEDS: INSULIN LISPRO 100 UNITS/ML SUBCUT SCH (06:25)
[2019-03-01] MEDS: BLOOD SUGAR DIAGNOSTIC STRIP TEST SCH (06:25)
[2019-03-01 07:55] VITALS: BP 138/98
[2019-03-01] MEDS: FUROSEMIDE 40MG/4ML VIAL IV SCH (09:05)
[2019-03-01] MEDS: ASPIRIN 81MG EC TABLET PO SCH (09:05)
[2019-03-01] MEDS: LOSARTAN POTASSIUM 25 MG TABLET PO SCH (09:05)
[2019-03-01] MEDS: CARVEDILOL 3.125 MG TABLET PO SCH (09:05)
[2019-03-01] MEDS: INSULIN GLARGINE UD 100 UNITS/ML SYR SUBCUT SCH (09:07)
[2019-03-01 09:22] VITALS: BP 138/98
== END 2019-03-01 11:37 | disposition home or self-care (01) | DRG 194 ==
LOC: ER 10:19 → EDBEDREQ 13:43 → 8WST 13:44 → EDBEDREQ 13:56 → ENRESERV 15:31
PROVIDERS: ADMIT Internal Medicine; ATTEND Internal Medicine
DX: I13.0 Hypertensive heart and chronic kidney disease with heart failure and stage 1 through stage 4 chronic kidney disease, or unspecified chronic kidney disease (principal); J96.00 Acute respiratory failure, unspecified whether with hypoxia or hypercapnia; N17.0 Acute kidney failure with tubular necrosis; I50.43 Acute on chronic combined systolic (congestive) and diastolic (congestive) heart failure; E11.22 Type 2 diabetes mellitus with diabetic chronic kidney disease; E11.65 Type 2 diabetes mellitus with hyperglycemia; I42.9 Cardiomyopathy, unspecified; E78.5 Hyperlipidemia, unspecified; J44.1 Chronic obstructive pulmonary disease with (acute) exacerbation; N18.9 Chronic kidney disease, unspecified; F17.210 Nicotine dependence, cigarettes, uncomplicated; I25.10 Atherosclerotic heart disease of native coronary artery without angina pectoris; I25.2 Old myocardial infarction; Z79.4 Long term (current) use of insulin; Z79.899 Other long term (current) drug therapy; Z99.81 Dependence on supplemental oxygen; Z71.6 Tobacco abuse counseling
CPT/HCPCS: 36415; 71045; 80048; 80061; 82550; 82553; 82962; 83036; 83880; 84439; 84443; 84484; 85379; 93005; 93306; 93970; 94644; 96374; 99285; J1650; J1815; J1940; J2930; J7611

== ENCOUNTER 2019-04-05 12:37 | Inpatient (IN) | payer MEDICAID ==
[~2019-04-05] VITALS: Ht 172.7 cm; Wt 74.8 kg
[~2019-04-05 12:37] MED LIST changes: +AMLO5TAB4 PO; +ASPI-1158 PO; +ASPI-1393 PO; +ATOR20TA65 PO; +CARV6.2548 PO; +FURO-151 PO; +HYDR-4009 PO
[2019-04-05] MEDS ORDERED: IPRATROPIUM BROMIDE (0.02%) 0.5MG/2.5ML NEB HHN STA (12:49)
[2019-04-05] MEDS ORDERED: METHYLPREDNISOLONE SOD SUCC 125 MG/2 ML VIAL IV STA (12:49)
[2019-04-05] MEDS ORDERED: ALBUTEROL (0.083%) 2.5MG/3ML NEB HHN STA (12:49)
[2019-04-05 13:34] LABS: HEMATOCRIT. 39.4 % (42.0-52.0); HEMOGLOBIN. 12.8 g/dL (14.0-18.0); MEAN CORPUSCULAR HEMOGLOBIN 27.1 pg (28.0-32.0); MEAN CORPUSCULAR VOLUME 83.3 fL (80.0-94.0); MEAN PLATELET VOLUME 8.1 fl (7.4-10.4); PLATELET 311 x1000/uL (130-400); RED BLOOD CELL COUNT 4.73 mill/uL (4.7-6.1); RED CELL DISTRIBUTION WIDTH 15.1 % (11.6-14.6)
[2019-04-05 13:41] LABS: CHLORIDE 106 mEq/L (98-107)
[2019-04-05 13:45] LABS: ETHANOL BLOOD < 10 mg/dL
[2019-04-05] MEDS ORDERED: FUROSEMIDE 40MG/4ML VIAL IV ONE (14:00)
[2019-04-05] MEDS ORDERED: ASPIRIN 81MG TABLET PO ONE (14:00)
[2019-04-05 14:04] LABS: PLATELET ESTIMATE NORMAL
[2019-04-05 17:57] VITALS: BP 173/111
[2019-04-05 20:00] VITALS: BP 170/111
[2019-04-05] MEDS ORDERED: DOCUSATE SODIUM 100MG CAPSULE PO PRN (20:15)
[2019-04-05] MEDS ORDERED: NA PHOS,M-B/NA PHOS,DI-BA ENEMA 118ML PR PRN (20:15)
[2019-04-05] MEDS ORDERED: MORPHINE SULFATE 2 MG/ML CPJ (NOT FOR IM USE) IV PRN (20:15)
[2019-04-05] MEDS ORDERED: ONDANSETRON HCL 4MG/2ML INJ IV PRN (20:15)
[2019-04-05] MEDS ORDERED: MAGNESIUM/ALUMINUM HYDROXIDE/SIMETHICONE 30ML UDC PO PRN (20:15)
[2019-04-05] MEDS ORDERED: ACETAMINOPHEN 325MG TABLET PO PRN (20:15)
[2019-04-05] MEDS ORDERED: DIPHENHYDRAMINE 50MG/ML VIAL IV PRN (20:15)
[2019-04-05] MEDS ORDERED: LORAZEPAM 2MG/ML CPJ IV PRN (20:15)
[2019-04-05] MEDS ORDERED: SACU1TAB MT (20:16)
[2019-04-05] MEDS ORDERED: BENA10TA12 MT (20:16)
[2019-04-05] MEDS ORDERED: DEXTROSE 50% WATER 50ML SYRINGE IV PRN (20:30)
[2019-04-05] MEDS: BLOOD SUGAR DIAGNOSTIC STRIP TEST SCH (20:38)
[2019-04-05] MEDS: CLONIDINE 0.1MG TABLET PO PRN (20:38)
[2019-04-05] MEDS: ENOXAPARIN 40MG/0.4ML SYR SUBCUT SCH (20:38)
[2019-04-05] MEDS: GUAIFENESIN 200MG/10ML SUGAR FREE UDC PO PRN (20:38)
[2019-04-05] MEDS: INSULIN LISPRO 100 UNITS/ML SUBCUT SCH (20:42)
[2019-04-06] VITALS: BP 140/90
[2019-04-06 00:15] LABS: CHLORIDE 109 mEq/L (98-107)
[2019-04-06 04:00] VITALS: BP_SYST 135; BP_SYST 140; BP_DIAS 87; BP_DIAS 90
[2019-04-06] MEDS: BLOOD SUGAR DIAGNOSTIC STRIP TEST SCH ×4 (06:08→20:52)
[2019-04-06] MEDS: INSULIN LISPRO 100 UNITS/ML SUBCUT SCH ×4 (06:21→20:52)
[2019-04-06] MEDS: FUROSEMIDE 40MG/4ML VIAL IV SCH ×2 (06:21→17:37)
[2019-04-06 07:16] LABS: BASOPHILS % 0.5 % (0.0-2.0); HEMATOCRIT. 35.4 % (42.0-52.0); HEMOGLOBIN. 11.6 g/dL (14.0-18.0); LYMPHOCYTES % 11.6 % (20.0-50.0); MEAN CORPUSCULAR HEMOGLOBIN 26.8 pg (28.0-32.0); MEAN CORPUSCULAR VOLUME 81.6 fL (80.0-94.0); MEAN PLATELET VOLUME 8.1 fl (7.4-10.4); MONOCYTES % 8.8 % (2.0-8.0); NEUTROPHILS % 79.1 % (40.0-76.0); PLATELET 278 x1000/uL (130-400); RED BLOOD CELL COUNT 4.34 mill/uL (4.7-6.1); RED CELL DISTRIBUTION WIDTH 14.8 % (11.6-14.6)
[2019-04-06 07:25] LABS: CHLORIDE 109 mEq/L (98-107)
[2019-04-06 07:35] LABS: LDL CHOLESTEROL 114 mg/dL (5-100)
[2019-04-06 07:37] LABS: HDL CHOLESTEROL 65 mg/dL (40-59); T4 FREE 1.11 ng/dL (0.76-1.46)
[2019-04-06 08:00] VITALS: BP 150/100
[2019-04-06] MEDS: ASPIRIN 81MG EC TABLET PO SCH (09:01)
[2019-04-06 12:00] VITALS: BP 165/111
[2019-04-06] MEDS: CLONIDINE 0.1MG TABLET PO PRN ×2 (12:29→21:01)
[2019-04-06 13:50] LABS: *AMPHETAMINES SCREEN URINE NEGATIVE (NEGATIVE); *BENZODIAZEPINES SCREEN URINE NEGATIVE (NEGATIVE); METHADONE URINE SCREEN NEGATIVE (NEGATIVE)
[2019-04-06 13:51] LABS: *BARBITURATES SCREEN URINE NEGATIVE (NEGATIVE); CANNABINOID URINE SCREEN NEGATIVE (NEGATIVE); PHENCYCLIDINE URINE SCREEN NEGATIVE (NEGATIVE)
[2019-04-06 13:53] LABS: *COCAINE SCREEN URINE PRESUMTIVE POSITIVE (NEGATIVE); OPIATES URINE SCREEN NEGATIVE (NEGATIVE)
[2019-04-06 15:17] LABS: LDL CHOLESTEROL 111 mg/dL (5-100)
[2019-04-06 15:18] LABS: CREATINE KINASE 863 IU/L (39-308); HDL CHOLESTEROL 65 mg/dL (40-59)
[2019-04-06 15:19] LABS: T4 FREE 1.01 ng/dL (0.76-1.46)
[2019-04-06 15:20] LABS: CREATINE KINASE MB FRACTION 9.6 ng/mL (0.5-3.6)
[2019-04-06 16:00] VITALS: BP 161/110
[2019-04-06 20:00] VITALS: BP 144/104
[2019-04-06] MEDS: IPRATROPIUM/ALBUTEROL 0.5-3(2.5)MG/3ML NEB INH PRN ×2 (20:31→22:47)
[2019-04-06] MEDS: GUAIFENESIN 200MG/10ML SUGAR FREE UDC PO PRN (20:51)
[2019-04-06] MEDS: ENOXAPARIN 40MG/0.4ML SYR SUBCUT SCH (20:51)
[2019-04-06] MEDS: CARVEDILOL 6.25 MG TABLET PO SCH (21:01)
[2019-04-07] VITALS: BP 130/98
[2019-04-07 00:48] LABS: CREATINE KINASE 810 IU/L (39-308)
[2019-04-07 00:49] LABS: CREATINE KINASE MB FRACTION 10.3 ng/mL (0.5-3.6)
[2019-04-07] MEDS: GUAIFENESIN 200MG/10ML SUGAR FREE UDC PO PRN (01:55)
[2019-04-07] MEDS: CLONIDINE 0.1MG TABLET PO PRN ×2 (03:09→17:59)
[2019-04-07 04:00] VITALS: BP 136/92
[2019-04-07 06:52] LABS: CREATINE KINASE 775 IU/L (39-308)
[2019-04-07 06:53] LABS: CREATINE KINASE MB FRACTION 10.3 ng/mL (0.5-3.6)
[2019-04-07] MEDS: FUROSEMIDE 40MG/4ML VIAL IV SCH ×2 (07:10→17:50)
[2019-04-07] MEDS: INSULIN LISPRO 100 UNITS/ML SUBCUT SCH ×4 (07:11→21:13)
[2019-04-07] MEDS: BLOOD SUGAR DIAGNOSTIC STRIP TEST SCH ×4 (07:11→21:13)
[2019-04-07 08:00] VITALS: BP 147/103
[2019-04-07] MEDS: CARVEDILOL 6.25 MG TABLET PO SCH ×2 (08:37→21:12)
[2019-04-07] MEDS: ASPIRIN 81MG EC TABLET PO SCH (08:38)
[2019-04-07] MEDS: (Sacubitril/Valsartan (Entresto 24 mg-26 mg Tablet) PO SCH ×2 (08:38→21:12)
[2019-04-07 12:00] VITALS: BP 137/87
[2019-04-07] MEDS: LOSARTAN POTASSIUM 25 MG TABLET PO SCH (12:47)
[2019-04-07] MEDS: HYDROCODONE/ACETAMINOPHEN 10/325MG TABLET PO PRN (15:32)
[2019-04-07 16:00] VITALS: BP 130/96
[2019-04-07 20:00] VITALS: BP 130/90
[2019-04-07] MEDS: ENOXAPARIN 40MG/0.4ML SYR SUBCUT SCH (21:12)
[2019-04-08] VITALS: BP 112/77
[2019-04-08 04:00] VITALS: BP 125/90
[2019-04-08] MEDS: HYDROCODONE/ACETAMINOPHEN 10/325MG TABLET PO PRN ×2 (04:41→13:31)
[2019-04-08 06:43] LABS: BASOPHILS % 0.9 % (0.0-2.0); EOSINOPHILS % 1.2 % (0.0-5.0); HEMATOCRIT. 35.7 % (42.0-52.0); HEMOGLOBIN. 11.5 g/dL (14.0-18.0); LYMPHOCYTES % 14.1 % (20.0-50.0); MEAN CORPUSCULAR HEMOGLOBIN 26.6 pg (28.0-32.0); MEAN CORPUSCULAR VOLUME 82.6 fL (80.0-94.0); MEAN PLATELET VOLUME 9.1 fl (7.4-10.4); MONOCYTES % 5.2 % (2.0-8.0); NEUTROPHILS % 78.6 % (40.0-76.0); PLATELET 298 x1000/uL (130-400); RED BLOOD CELL COUNT 4.33 mill/uL (4.7-6.1); RED CELL DISTRIBUTION WIDTH 14.9 % (11.6-14.6)
[2019-04-08] MEDS: BLOOD SUGAR DIAGNOSTIC STRIP TEST SCH ×4 (06:44→20:50)
[2019-04-08] MEDS: FUROSEMIDE 40MG/4ML VIAL IV SCH ×2 (06:53→17:55)
[2019-04-08] MEDS: INSULIN LISPRO 100 UNITS/ML SUBCUT SCH ×4 (06:54→20:50)
[2019-04-08 08:00] VITALS: BP 146/101
[2019-04-08] MEDS: (Sacubitril/Valsartan (Entresto 24 mg-26 mg Tablet) PO SCH ×2 (08:47→20:45)
[2019-04-08] MEDS: ASPIRIN 81MG EC TABLET PO SCH (08:47)
[2019-04-08] MEDS: CARVEDILOL 6.25 MG TABLET PO SCH ×2 (08:47→20:45)
[2019-04-08] MEDS: LOSARTAN POTASSIUM 25 MG TABLET PO SCH (08:47)
[2019-04-08] MEDS: METOLAZONE 2.5MG TABLET PO SCH (08:47)
[2019-04-08 12:00] VITALS: BP 145/97
[2019-04-08] MEDS: CLONIDINE 0.1MG TABLET PO PRN (13:32)
[2019-04-08 16:00] VITALS: BP 145/100
[2019-04-08 20:00] VITALS: BP 153/109
[2019-04-08] MEDS: ENOXAPARIN 40MG/0.4ML SYR SUBCUT SCH (20:46)
[2019-04-09] VITALS: BP 123/83
[2019-04-09 04:00] VITALS: BP 142/97
[2019-04-09] MEDS: IPRATROPIUM/ALBUTEROL 0.5-3(2.5)MG/3ML NEB INH PRN (05:47)
[2019-04-09] MEDS: FUROSEMIDE 40MG/4ML VIAL IV SCH (06:01)
[2019-04-09] MEDS: BLOOD SUGAR DIAGNOSTIC STRIP TEST SCH (06:04)
[2019-04-09] MEDS: INSULIN LISPRO 100 UNITS/ML SUBCUT SCH (06:07)
[2019-04-09] MEDS: (Sacubitril/Valsartan (Entresto 24 mg-26 mg Tablet) PO SCH (08:16)
[2019-04-09] MEDS: LOSARTAN POTASSIUM 25 MG TABLET PO SCH (08:17)
[2019-04-09] MEDS: CARVEDILOL 6.25 MG TABLET PO SCH (08:17)
[2019-04-09] MEDS: METOLAZONE 2.5MG TABLET PO SCH (08:17)
[2019-04-09] MEDS: ASPIRIN 81MG EC TABLET PO SCH (08:18)
[2019-04-09 08:22] VITALS: BP 141/89
[2019-04-09 08:47] VITALS: BP 141/89
== END 2019-04-09 10:10 | disposition home or self-care (01) | DRG 133 ==
LOC: ER 12:43 → 5WST 15:09 → EDBEDREQSVC 15:37 → ENRESERV 16:36
PROVIDERS: ADMIT Internal Medicine; ATTEND Internal Medicine
DX: J96.00 Acute respiratory failure, unspecified whether with hypoxia or hypercapnia (principal); I50.23 Acute on chronic systolic (congestive) heart failure; N17.9 Acute kidney failure, unspecified; E11.22 Type 2 diabetes mellitus with diabetic chronic kidney disease; I42.9 Cardiomyopathy, unspecified; E44.1 Mild protein-calorie malnutrition; I13.0 Hypertensive heart and chronic kidney disease with heart failure and stage 1 through stage 4 chronic kidney disease, or unspecified chronic kidney disease; J44.9 Chronic obstructive pulmonary disease, unspecified; N18.9 Chronic kidney disease, unspecified; I25.10 Atherosclerotic heart disease of native coronary artery without angina pectoris; D64.9 Anemia, unspecified; E78.5 Hyperlipidemia, unspecified; Z79.4 Long term (current) use of insulin; Z79.899 Other long term (current) drug therapy
CPT/HCPCS: 36415; 71045; 80048; 80061; 80305; 80320; 82550; 82553; 82962; 83036; 83880; 84439; 84443; 84484; 85379; 93005; 93306; 93970; 94640; 96374; 99285; J1200; J1650; J1815; J1940; J2405; J2930; J7611; J7620; G0480

== ENCOUNTER 2019-05-10 06:34 | Inpatient (IN) | payer MEDICAID ==
[~2019-05-10] VITALS: Ht 182.9 cm; Wt 78.0 kg
[~2019-05-10 06:34] MED LIST changes: -AMLO10TA80 MT; -AMLO10TA80 PO; -ASPI-1393 PO; -ATOR-2 MT; -ATOR20TA65 PO; +BENA10TA12 MT; -CLON-457 MT; -FAMO20TA8 PO; -FURO-151 PO; -GABA-531 PO; -GLIP5TAB12 MT; -GLIP5TAB12 PO; -HYDR-4009 PO; -LISI-186 MT; -MELA5TAB21 MT; -NITR0.4T49 SL; +SACU1TAB MT; -SERT50TA PO
[2019-05-10] MEDS ORDERED: FUROSEMIDE 40MG/4ML VIAL IV ONE (07:30)
[2019-05-10 07:45] LABS: BASOPHILS % 0.7 % (0.0-2.0); EOSINOPHILS % 1.3 % (0.0-5.0); HEMATOCRIT. 36.9 % (42.0-52.0); LYMPHOCYTES % 19.2 % (20.0-50.0); MEAN CORPUSCULAR HEMOGLOBIN 26.7 pg (28.0-32.0); MEAN CORPUSCULAR VOLUME 81.9 fL (80.0-94.0); MEAN PLATELET VOLUME 7.3 fl (7.4-10.4); MONOCYTES % 8.6 % (2.0-8.0); NEUTROPHILS % 70.2 % (40.0-76.0); PLATELET 354 x1000/uL (130-400); RED BLOOD CELL COUNT 4.51 mill/uL (4.7-6.1); RED CELL DISTRIBUTION WIDTH 15.8 % (11.6-14.6)
[2019-05-10 07:50] LABS: CHLORIDE 107 mEq/L (98-107)
[2019-05-10 14:30] VITALS: BP 150/96
[2019-05-10] MEDS ORDERED: ACETAMINOPHEN 325MG TABLET PO PRN (15:15)
[2019-05-10] MEDS ORDERED: ZOLPIDEM TARTRATE 5MG TABLET PO PRN (15:15)
[2019-05-10 16:00] VITALS: BP_SYST 143; BP_SYST 150; BP_DIAS 108; BP_DIAS 90
[2019-05-10] MEDS: FUROSEMIDE 40MG/4ML VIAL IVP SCH (17:06)
[2019-05-10] MEDS: HYDROCODONE/ACETAMINOPHEN 5/325MG TABLET PO PRN ×2 (17:07→21:16)
[2019-05-10] MEDS: ENOXAPARIN 40MG/0.4ML SYR SUBCUT SCH (17:08)
[2019-05-10] MEDS: AMLODIPINE 5MG TABLET PO SCH (17:08)
[2019-05-10 20:00] VITALS: BP 136/91
[2019-05-11] VITALS: BP 150/110
[2019-05-11] MEDS: HYDROCODONE/ACETAMINOPHEN 5/325MG TABLET PO PRN ×4 (02:06→20:44)
[2019-05-11 04:00] VITALS: BP 148/107
[2019-05-11] MEDS: ASPIRIN 81MG TABLET PO SCH (08:37)
[2019-05-11] MEDS: AMLODIPINE 5MG TABLET PO SCH (08:38)
[2019-05-11] MEDS: FUROSEMIDE 40MG/4ML VIAL IVP SCH (09:27)
[2019-05-11 12:00] VITALS: BP 136/101
[2019-05-11] MEDS ORDERED: DEXTROSE 50% WATER 50ML SYRINGE IV PRN (14:00)
[2019-05-11] MEDS: CLONIDINE 0.3MG TABLET PO PRN ×2 (14:56→20:43)
[2019-05-11 15:10] LABS: CREATINE KINASE 684 IU/L (39-308); CREATINE KINASE MB FRACTION 9.4 ng/mL (0.5-3.6)
[2019-05-11 15:11] LABS: T4 FREE 0.97 ng/dL (0.76-1.46)
[2019-05-11 16:00] VITALS: BP 125/96
[2019-05-11] MEDS: ENOXAPARIN 40MG/0.4ML SYR SUBCUT SCH (16:36)
[2019-05-11] MEDS: BLOOD SUGAR DIAGNOSTIC STRIP TEST SCH ×2 (17:16→20:47)
[2019-05-11] MEDS: FUROSEMIDE 100MG/10ML VIAL IVP SCH (17:27)
[2019-05-11] MEDS: INSULIN LISPRO 100 UNITS/ML SUBCUT SCH ×2 (17:41→20:47)
[2019-05-11 20:00] VITALS: BP 138/101
[2019-05-12] VITALS: BP 104/69
[2019-05-12 04:00] VITALS: BP 125/96
[2019-05-12] MEDS: HYDROCODONE/ACETAMINOPHEN 5/325MG TABLET PO PRN ×2 (05:52→14:37)
[2019-05-12 07:00] LABS: CHLORIDE 106 mEq/L (98-107)
[2019-05-12 07:07] LABS: BASOPHILS % 1.3 % (0.0-2.0); HEMATOCRIT. 32.3 % (42.0-52.0); HEMOGLOBIN. 10.4 g/dL (14.0-18.0); LYMPHOCYTES % 15.9 % (20.0-50.0); MEAN CORPUSCULAR HEMOGLOBIN 26.3 pg (28.0-32.0); MEAN CORPUSCULAR VOLUME 81.4 fL (80.0-94.0); MEAN PLATELET VOLUME 8.1 fl (7.4-10.4); MONOCYTES % 6.8 % (2.0-8.0); PLATELET 319 x1000/uL (130-400); RED BLOOD CELL COUNT 3.97 mill/uL (4.7-6.1); RED CELL DISTRIBUTION WIDTH 15.7 % (11.6-14.6)
[2019-05-12 07:08] LABS: CREATINE KINASE 395 IU/L (39-308)
[2019-05-12 07:18] LABS: CREATINE KINASE MB FRACTION 4.6 ng/mL (0.5-3.6)
[2019-05-12] MEDS: BLOOD SUGAR DIAGNOSTIC STRIP TEST SCH ×2 (07:40→12:40)
[2019-05-12 08:00] VITALS: BP 105/70
[2019-05-12] MEDS: FUROSEMIDE 100MG/10ML VIAL IVP SCH (08:51)
[2019-05-12] MEDS: AMLODIPINE 5MG TABLET PO SCH (08:52)
[2019-05-12] MEDS: ASPIRIN 81MG TABLET PO SCH (08:52)
[2019-05-12] MEDS: INSULIN LISPRO 100 UNITS/ML SUBCUT SCH ×2 (08:53→13:10)
[2019-05-12 09:40] VITALS: BP 105/70
[2019-05-12 12:00] VITALS: BP 114/74
[2019-05-12 14:37] VITALS: BP 110/80
[2019-05-13] MEDS ORDERED: ACET-2853 MT (11:19)
[2019-05-13] MEDS ORDERED: GLIP5TAB12 MT (11:19)
== END 2019-05-12 15:54 | disposition home or self-care (01) | DRG 133 ==
LOC: ER 06:34 → EDBEDREQ 12:24 → EDBEDREQTM 12:24 → ENRESERV 13:34 → 7WST 14:06
PROVIDERS: ADMIT Internal Medicine; ATTEND Internal Medicine
DX: J96.20 Acute and chronic respiratory failure, unspecified whether with hypoxia or hypercapnia (principal); N17.0 Acute kidney failure with tubular necrosis; E43 Unspecified severe protein-calorie malnutrition; I50.43 Acute on chronic combined systolic (congestive) and diastolic (congestive) heart failure; E11.22 Type 2 diabetes mellitus with diabetic chronic kidney disease; I13.0 Hypertensive heart and chronic kidney disease with heart failure and stage 1 through stage 4 chronic kidney disease, or unspecified chronic kidney disease; J44.9 Chronic obstructive pulmonary disease, unspecified; I25.10 Atherosclerotic heart disease of native coronary artery without angina pectoris; R07.89 Other chest pain; N18.9 Chronic kidney disease, unspecified; I42.9 Cardiomyopathy, unspecified; E78.5 Hyperlipidemia, unspecified; F14.90 Cocaine use, unspecified, uncomplicated; Z87.891 Personal history of nicotine dependence; Z83.3 Family history of diabetes mellitus; I25.2 Old myocardial infarction; Z99.81 Dependence on supplemental oxygen; Z82.49 Family history of ischemic heart disease and other diseases of the circulatory system; Z68.23 Body mass index [BMI] 23.0-23.9, adult; Z71.51 Drug abuse counseling and surveillance of drug abuser
CPT/HCPCS: 36415; 71045; 80048; 80061; 82550; 82553; 82962; 83036; 83880; 84439; 84443; 84484; 85379; 93005; 93306; 93970; 99285; J1650; J1815; J1940

== ENCOUNTER 2019-05-12 23:34 | Inpatient (IN) | payer MEDICAID ==
[~2019-05-12] VITALS: Ht 175.3 cm; Wt 75.3 kg
[2019-05-13] MEDS ORDERED: FUROSEMIDE 40MG/4ML VIAL IV ONE (00:15)
[2019-05-13 00:32] LABS: BG BASE EXCESS 0.5 mmol/L (-2.0-2.0); BG CARBOXYHEMOGLOBIN 0.1 % (0.5-1.5); BG DEOXYHEMOGLOBIN 8.7 % (0.0-5.0); BG FRACTION INSPIRED OXYGEN 28; BG METHEMOGLOBIN 0.3 % (0.0-1.5); BG OXYGEN SATURATION 91.3 % (92.0-98.5); BG OXYHEMOGLOBIN 90.9 % (94.0-97.0); BG PCO2 34.7 mmHg (35.0-45.0); BG PH 7.458 (7.350-7.450); BG PO2 60.7 mmHg (75.0-100.0); BG SAMPLE SITE RIGHT RADIAL; BG TOTAL HEMOGLOBIN 10.8 g/dL (12.0-18.0); BG VENT MODE NASAL CANNULA
[2019-05-13 01:02] LABS: BASOPHILS % 1.2 % (0.0-2.0); EOSINOPHILS % 0.8 % (0.0-5.0); HEMATOCRIT. 33.7 % (42.0-52.0); LYMPHOCYTES % 17.4 % (20.0-50.0); MEAN CORPUSCULAR VOLUME 82.5 fL (80.0-94.0); MEAN PLATELET VOLUME 7.5 fl (7.4-10.4); MONOCYTES % 7.7 % (2.0-8.0); NEUTROPHILS % 72.9 % (40.0-76.0); PLATELET 291 x1000/uL (130-400); RED BLOOD CELL COUNT 4.08 mill/uL (4.7-6.1); RED CELL DISTRIBUTION WIDTH 15.8 % (11.6-14.6)
[2019-05-13 01:06] LABS: CHLORIDE 105 mEq/L (98-107)
[2019-05-13 02:16] LABS: *COCAINE SCREEN URINE PRESUMTIVE POSITIVE (NEGATIVE); METHADONE URINE SCREEN NEGATIVE (NEGATIVE); OPIATES URINE SCREEN PRESUMTIVE POSITIVE (NEGATIVE)
[2019-05-13 02:17] LABS: *AMPHETAMINES SCREEN URINE NEGATIVE (NEGATIVE); *BARBITURATES SCREEN URINE NEGATIVE (NEGATIVE); CANNABINOID URINE SCREEN NEGATIVE (NEGATIVE); PHENCYCLIDINE URINE SCREEN NEGATIVE (NEGATIVE)
[2019-05-13 02:19] LABS: *BENZODIAZEPINES SCREEN URINE NEGATIVE (NEGATIVE)
[2019-05-13] MEDS ORDERED: GUAIFENESIN/CODEINE 100-10MG/5ML UDC PO PRN (07:30)
[2019-05-13] MEDS ORDERED: IPRATROPIUM/ALBUTEROL 0.5-3(2.5)MG/3ML NEB HHN ONE (08:45)
[2019-05-13] MEDS: METHYLPREDNISOLONE SOD SUCC 40 MG/ML VIAL IV SCH ×2 (09:04→17:20)
[2019-05-13 09:50] VITALS: BP 162/109
[2019-05-13] MEDS ORDERED: GLIP5TAB12 MT (11:19)
[2019-05-13] MEDS ORDERED: ACET-2853 MT (11:19)
[2019-05-13 12:00] VITALS: BP 164/106
[2019-05-13] MEDS ORDERED: CLONIDINE 0.1MG TABLET PO PRN (13:00)
[2019-05-13] MEDS ORDERED: GUAIFENESIN 200MG/10ML SUGAR FREE UDC PO PRN (13:00)
[2019-05-13] MEDS ORDERED: AMLODIPINE 10MG TABLET PO SCH (13:00)
[2019-05-13] MEDS ORDERED: ACETAMINOPHEN 325MG TABLET PO PRN (13:00)
[2019-05-13] MEDS ORDERED: IPRATROPIUM/ALBUTEROL 0.5-3(2.5)MG/3ML NEB NEB PRN (13:00)
[2019-05-13] MEDS ORDERED: ONDANSETRON HCL 4MG/2ML INJ IV PRN (13:00)
[2019-05-13] MEDS ORDERED: HYDRALAZINE HCL 25MG TABLET PO SCH (14:00)
[2019-05-13] MEDS: ASPIRIN 325MG EC TABLET PO SCH (14:12)
[2019-05-13] MEDS: ENOXAPARIN 40MG/0.4ML SYR SUBCUT SCH (14:13)
[2019-05-13] MEDS: FUROSEMIDE 40MG/4ML VIAL IVP SCH ×2 (14:14→17:21)
[2019-05-13] MEDS: HYDROCODONE/ACETAMINOPHEN 5/325MG TABLET PO PRN ×2 (14:24→21:55)
[2019-05-13] MEDS ORDERED: LEVOFLOXACIN 500MG PREMIX 100 ML IV SCH (15:00)
[2019-05-13 15:34] LABS: CREATINE KINASE 592 IU/L (39-308)
[2019-05-13 15:35] LABS: CREATINE KINASE MB FRACTION 6.8 ng/mL (0.5-3.6)
[2019-05-13] MEDS ORDERED: HYDRALAZINE 20MG/ML VIAL IV PRN (15:45)
[2019-05-13 16:00] VITALS: BP 140/100
[2019-05-13] MEDS: IPRATROPIUM/ALBUTEROL 0.5-3(2.5)MG/3ML NEB HHN SCH ×2 (16:25→21:26)
[2019-05-13] MEDS: POTASSIUM CHLORIDE 20MEQ TABLET SR PO SCH (17:20)
[2019-05-13] MEDS: INSULIN LISPRO 100 UNITS/ML SUBCUT SCH (17:23)
[2019-05-13 20:00] VITALS: BP 143/94
[2019-05-13] MEDS: HYDRALAZINE HCL 100MG TABLET PO SCH (21:29)
[2019-05-13] MEDS: AMLODIPINE 10MG TABLET PO SCH (21:29)
[2019-05-13] MEDS: NITROGLYCERIN OINT 1GM/INCH UDPKT TD SCH (21:29)
[2019-05-13] MEDS ORDERED: INSULIN GLARGINE UD 100 UNITS/ML SYR SUBCUT SCH (22:00)
[2019-05-14] VITALS: BP_SYST 140; BP_SYST 147; BP_DIAS 81; BP_DIAS 85
[2019-05-14 00:31] LABS: CREATINE KINASE 603 IU/L (39-308)
[2019-05-14 00:32] LABS: CREATINE KINASE MB FRACTION 6.4 ng/mL (0.5-3.6)
[2019-05-14] MEDS: METHYLPREDNISOLONE SOD SUCC 40 MG/ML VIAL IV SCH ×3 (00:59→17:23)
[2019-05-14] MEDS: IPRATROPIUM/ALBUTEROL 0.5-3(2.5)MG/3ML NEB HHN SCH ×6 (01:16→21:11)
[2019-05-14 04:00] VITALS: BP 132/85
[2019-05-14] MEDS: FUROSEMIDE 40MG/4ML VIAL IVP SCH ×3 (06:46→19:03)
[2019-05-14] MEDS: HYDRALAZINE HCL 100MG TABLET PO SCH ×3 (06:46→21:37)
[2019-05-14] MEDS: NITROGLYCERIN OINT 1GM/INCH UDPKT TD SCH ×3 (06:47→21:37)
[2019-05-14] MEDS: INSULIN LISPRO 100 UNITS/ML SUBCUT SCH ×6 (07:01→20:05)
[2019-05-14 07:39] LABS: HEMATOCRIT. 31.3 % (42.0-52.0); HEMOGLOBIN. 10.2 g/dL (14.0-18.0); MEAN CORPUSCULAR HEMOGLOBIN 26.8 pg (28.0-32.0); MEAN CORPUSCULAR VOLUME 82.1 fL (80.0-94.0); MEAN PLATELET VOLUME 8.2 fl (7.4-10.4); PLATELET 286 x1000/uL (130-400); RED BLOOD CELL COUNT 3.81 mill/uL (4.7-6.1); RED CELL DISTRIBUTION WIDTH 15.7 % (11.6-14.6)
[2019-05-14 07:45] LABS: CHLORIDE 104 mEq/L (98-107)
[2019-05-14 08:00] VITALS: BP 160/90
[2019-05-14] MEDS: POTASSIUM CHLORIDE 20MEQ TABLET SR PO SCH (08:22)
[2019-05-14] MEDS: AMLODIPINE 10MG TABLET PO SCH ×2 (08:23→20:31)
[2019-05-14] MEDS: ASPIRIN 325MG EC TABLET PO SCH (08:23)
[2019-05-14] MEDS ORDERED: DEXTROSE 50% WATER 50ML SYRINGE IV PRN ×2 (09:15→11:45)
[2019-05-14] MEDS: BLOOD SUGAR DIAGNOSTIC STRIP TEST SCH ×3 (11:45→20:03)
[2019-05-14] MEDS ORDERED: BLOOD SUGAR DIAGNOSTIC STRIP TEST SCH (11:45)
[2019-05-14 12:00] VITALS: BP 151/101
[2019-05-14] MEDS ORDERED: INSULIN LISPRO 100 UNITS/ML SUBCUT SCH (12:15)
[2019-05-14] MEDS: ENOXAPARIN 40MG/0.4ML SYR SUBCUT SCH (14:44)
[2019-05-14 16:00] VITALS: BP 133/84
[2019-05-14] MEDS: LEVOFLOXACIN 250MG PREMIX 50 ML IV SCH (17:23)
[2019-05-14] MEDS: HYDROCODONE/ACETAMINOPHEN 5/325MG TABLET PO PRN (17:35)
[2019-05-14 19:54] LABS: PLATELET ESTIMATE NORMAL
[2019-05-14 20:00] VITALS: BP 148/100
[2019-05-14] MEDS: INSULIN GLARGINE UD 100 UNITS/ML SYR SUBCUT SCH (22:08)
[2019-05-15] VITALS (8 sets, daily range): BP systolic 131–155; BP diastolic 70–102
[2019-05-15] MEDS: METHYLPREDNISOLONE SOD SUCC 40 MG/ML VIAL IV SCH ×3 (00:04→17:28)
[2019-05-15] MEDS ORDERED: INSULIN LISPRO 100 UNITS/ML SUBCUT NR (00:15)
[2019-05-15] MEDS: IPRATROPIUM/ALBUTEROL 0.5-3(2.5)MG/3ML NEB HHN SCH ×6 (01:10→21:25)
[2019-05-15] MEDS: NITROGLYCERIN OINT 1GM/INCH UDPKT TD SCH ×3 (05:10→22:41)
[2019-05-15] MEDS: HYDRALAZINE HCL 100MG TABLET PO SCH ×3 (05:10→22:41)
[2019-05-15] MEDS: BLOOD SUGAR DIAGNOSTIC STRIP TEST SCH ×4 (05:56→21:00)
[2019-05-15] MEDS: INSULIN LISPRO 100 UNITS/ML SUBCUT SCH ×7 (06:15→22:55)
[2019-05-15] MEDS: FUROSEMIDE 40MG/4ML VIAL IVP SCH ×3 (06:16→17:28)
[2019-05-15 08:05] LABS: HEMATOCRIT. 35.8 % (42.0-52.0); HEMOGLOBIN. 11.6 g/dL (14.0-18.0); MEAN CORPUSCULAR HEMOGLOBIN 26.3 pg (28.0-32.0); MEAN CORPUSCULAR VOLUME 80.9 fL (80.0-94.0); PLATELET 375 x1000/uL (130-400); RED BLOOD CELL COUNT 4.43 mill/uL (4.7-6.1)
[2019-05-15] MEDS: POTASSIUM CHLORIDE 20MEQ TABLET SR PO SCH (08:35)
[2019-05-15] MEDS: ASPIRIN 325MG EC TABLET PO SCH (08:35)
[2019-05-15] MEDS: AMLODIPINE 10MG TABLET PO SCH ×2 (08:36→22:41)
[2019-05-15] MEDS: ENOXAPARIN 40MG/0.4ML SYR SUBCUT SCH (13:44)
[2019-05-15 13:49] LABS: PLATELET ESTIMATE NORMAL
[2019-05-15] MEDS: LEVOFLOXACIN 250MG PREMIX 50 ML IV SCH (15:35)
[2019-05-15] MEDS: HYDROCODONE/ACETAMINOPHEN 5/325MG TABLET PO PRN (22:30)
[2019-05-15] MEDS: INSULIN GLARGINE UD 100 UNITS/ML SYR SUBCUT SCH (22:50)
[2019-05-16] VITALS: BP 148/95
[2019-05-16] MEDS: IPRATROPIUM/ALBUTEROL 0.5-3(2.5)MG/3ML NEB HHN SCH ×4 (00:50→11:28)
[2019-05-16] MEDS: METHYLPREDNISOLONE SOD SUCC 40 MG/ML VIAL IV SCH ×2 (01:59→08:46)
[2019-05-16] MEDS: HYDROCODONE/ACETAMINOPHEN 5/325MG TABLET PO PRN (02:54)
[2019-05-16 04:00] VITALS: BP 141/88
[2019-05-16] MEDS: HYDRALAZINE HCL 100MG TABLET PO SCH (05:22)
[2019-05-16] MEDS: NITROGLYCERIN OINT 1GM/INCH UDPKT TD SCH (05:22)
[2019-05-16] MEDS: BLOOD SUGAR DIAGNOSTIC STRIP TEST SCH ×2 (05:27→11:57)
[2019-05-16] MEDS: FUROSEMIDE 40MG/4ML VIAL IVP SCH (06:48)
[2019-05-16] MEDS: INSULIN LISPRO 100 UNITS/ML SUBCUT SCH ×4 (06:54→12:00)
[2019-05-16 07:38] LABS: CHLORIDE 101 mEq/L (98-107)
[2019-05-16 08:00] VITALS: BP 142/88
[2019-05-16] MEDS: ASPIRIN 325MG EC TABLET PO SCH (08:46)
[2019-05-16] MEDS: POTASSIUM CHLORIDE 20MEQ TABLET SR PO SCH (08:46)
[2019-05-16] MEDS: AMLODIPINE 10MG TABLET PO SCH (08:46)
== END 2019-05-16 12:20 | disposition home or self-care (01) | DRG 194 ==
LOC: ER 23:34 → 5WST 05-13 04:01 → EDBEDREQTM 05-13 04:05 → EDBEDREQ 05-13 04:05 → ENRESERV 05-13 08:56
PROVIDERS: ADMIT Internal Medicine; ATTEND Internal Medicine
DX: I13.0 Hypertensive heart and chronic kidney disease with heart failure and stage 1 through stage 4 chronic kidney disease, or unspecified chronic kidney disease (principal); J96.00 Acute respiratory failure, unspecified whether with hypoxia or hypercapnia; E46 Unspecified protein-calorie malnutrition; N17.9 Acute kidney failure, unspecified; E11.22 Type 2 diabetes mellitus with diabetic chronic kidney disease; I42.9 Cardiomyopathy, unspecified; E11.65 Type 2 diabetes mellitus with hyperglycemia; F14.10 Cocaine abuse, uncomplicated; G89.4 Chronic pain syndrome; I25.10 Atherosclerotic heart disease of native coronary artery without angina pectoris; I50.43 Acute on chronic combined systolic (congestive) and diastolic (congestive) heart failure; R00.0 Tachycardia, unspecified; J44.1 Chronic obstructive pulmonary disease with (acute) exacerbation; N18.9 Chronic kidney disease, unspecified; Z72.0 Tobacco use; Z87.820 Personal history of traumatic brain injury; Z91.19 Patient's noncompliance with other medical treatment and regimen; Z68.24 Body mass index [BMI] 24.0-24.9, adult
CPT/HCPCS: 36415; 36600; 71045; 80048; 80305; 82375; 82550; 82553; 82805; 82962; 83735; 83880; 84443; 84484; 93005; 94640; 99285; J1650; J1815; J1940; J1956; J2920; J7040; J7620

== ENCOUNTER 2019-10-04 20:16 | Inpatient (IN) | payer MEDICAID, OTHER ==
[~2019-10-04] VITALS: Ht 175.3 cm; Wt 65.8 kg
[~2019-10-04 20:16] MED LIST changes: -AMLO5TAB4 PO; +AMLO5TAB88 MT; -ASPI-1158 PO; +BACL-141 MT; -BENA10TA12 MT; +CARV25TA47 MT; -CARV6.2548 PO; +DIGO125T80 MT; -FURO40TA5 MT; -FURO40TA5 PO; +GABA-531 MT; +GLIP5TAB12 MT; +HYDR-4001 MT; -HYDR-4134 MT; +HYDR-4135 MT; +OMEP40CA12 MT; -SACU1TAB MT; +SENN-170 MT; +SERT-112 MT; +SPIR25TA6 MT; +VANC250C12 MT
[2019-10-04 22:01] LABS: BASOPHILS % 1.1 % (0.0-2.0); EOSINOPHILS % 0.4 % (0.0-5.0); HEMATOCRIT. 22.8 % (42.0-52.0); HEMOGLOBIN. 7.2 g/dL (14.0-18.0); MEAN CORPUSCULAR HEMOGLOBIN 25.5 pg (28.0-32.0); MEAN CORPUSCULAR VOLUME 80.6 fL (80.0-94.0); MEAN PLATELET VOLUME 7.1 fl (7.4-10.4); MONOCYTES % 10.2 % (2.0-8.0); NEUTROPHILS % 76.3 % (40.0-76.0); PLATELET 226 x1000/uL (130-400); RED BLOOD CELL COUNT 2.83 mill/uL (4.7-6.1); RED CELL DISTRIBUTION WIDTH 24.8 % (11.6-14.6)
[2019-10-04 22:06] LABS: CHLORIDE 110 mEq/L (98-107)
[2019-10-04 22:30] LABS: PLATELET ESTIMATE NORMAL
[2019-10-04] MEDS ORDERED: POTASSIUM CHLORIDE 20MEQ TABLET SR PO NR (23:45)
[2019-10-05] VITALS (7 sets, daily range): BP systolic 149–164; BP diastolic 84–111
[2019-10-05] MEDS ORDERED: CALCIUM GLUCONATE 1,000 MG in DEXTROSE 5% WATER 50 ML IV NR ×2
[2019-10-05] MEDS ORDERED: FUROSEMIDE 40MG/4ML VIAL IVP NR
[2019-10-05] MEDS ORDERED: MAGNESIUM 2 G PREMIX 50 ML IV NR ×2 (00:30→22:30)
[2019-10-05] MEDS ORDERED: OSELTAMIVIR 75MG CAPSULE PO ONE (00:45)
[2019-10-05] MEDS ORDERED: HYDROCODONE/ACETAMINOPHEN 5/325MG TABLET PO ONE (01:30)
[2019-10-05] MEDS ORDERED: MORPHINE SULFATE 2 MG/ML CPJ (NOT FOR IM USE) IV PRN (07:45)
[2019-10-05] MEDS ORDERED: IPRATROPIUM/ALBUTEROL 0.5-3(2.5)MG/3ML NEB NEB PRN (07:45)
[2019-10-05] MEDS ORDERED: ONDANSETRON HCL 4MG/2ML INJ IV PRN (07:45)
[2019-10-05] MEDS: ENOXAPARIN 40MG/0.4ML SYR SUBCUT SCH (12:00)
[2019-10-05] MEDS: ASPIRIN 81MG EC TABLET PO SCH (12:38)
[2019-10-05] MEDS: FUROSEMIDE 40MG/4ML VIAL IV SCH ×2 (12:38→18:07)
[2019-10-05 18:47] LABS: CREATINE KINASE 108 IU/L (39-308); CREATINE KINASE MB FRACTION 1.1 ng/mL (0.5-3.6)
[2019-10-05] MEDS: HYDROCODONE/ACETAMINOPHEN 5/325MG TABLET PO PRN (18:51)
[2019-10-05 19:06] LABS: BASOPHILS % 0.7 % (0.0-2.0); EOSINOPHILS % 0.1 % (0.0-5.0); HEMATOCRIT. 33.6 % (42.0-52.0); HEMOGLOBIN. 10.8 g/dL (14.0-18.0); LYMPHOCYTES % 13.1 % (20.0-50.0); MEAN CORPUSCULAR HEMOGLOBIN 26.1 pg (28.0-32.0); MEAN CORPUSCULAR VOLUME 81.5 fL (80.0-94.0); MEAN PLATELET VOLUME 7.7 fl (7.4-10.4); MONOCYTES % 10.6 % (2.0-8.0); NEUTROPHILS % 75.5 % (40.0-76.0); PLATELET 279 x1000/uL (130-400); RED BLOOD CELL COUNT 4.13 mill/uL (4.7-6.1); RED CELL DISTRIBUTION WIDTH 24.2 % (11.6-14.6)
[2019-10-05] MEDS ORDERED: DEXTROSE 50% WATER 50ML SYRINGE IV PRN (20:15)
[2019-10-05] MEDS ORDERED: INSULIN LISPRO 100 UNITS/ML SUBCUT NR (21:00)
[2019-10-05] MEDS: INSULIN LISPRO 100 UNITS/ML SUBCUT SCH (21:05)
[2019-10-05] MEDS: BLOOD SUGAR DIAGNOSTIC STRIP TEST SCH (21:06)
[2019-10-05] MEDS ORDERED: INSULIN GLARGINE UD 100 UNITS/ML SYR SUBCUT NR (22:00)
[2019-10-05 22:13] LABS: CREATINE KINASE 96 IU/L (39-308); CREATINE KINASE MB FRACTION < 1.0 ng/mL (0.5-3.6)
[2019-10-06] VITALS (12 sets, daily range): BP systolic 121–150; BP diastolic 76–108
[2019-10-06] MEDS: HYDROCODONE/ACETAMINOPHEN 5/325MG TABLET PO PRN ×3 (03:35→18:42)
[2019-10-06] MEDS: FUROSEMIDE 40MG/4ML VIAL IV SCH ×2 (06:49→18:42)
[2019-10-06 06:57] LABS: EOSINOPHILS % 0.2 % (0.0-5.0); HEMATOCRIT. 33.6 % (42.0-52.0); HEMOGLOBIN. 11.2 g/dL (14.0-18.0); LYMPHOCYTES % 13.1 % (20.0-50.0); MEAN CORPUSCULAR HEMOGLOBIN 26.4 pg (28.0-32.0); MEAN CORPUSCULAR VOLUME 79.6 fL (80.0-94.0); MEAN PLATELET VOLUME 7.4 fl (7.4-10.4); MONOCYTES % 11.8 % (2.0-8.0); NEUTROPHILS % 73.9 % (40.0-76.0); PLATELET 288 x1000/uL (130-400); RED BLOOD CELL COUNT 4.23 mill/uL (4.7-6.1)
[2019-10-06] MEDS: BLOOD SUGAR DIAGNOSTIC STRIP TEST SCH ×4 (07:47→20:24)
[2019-10-06] MEDS: ASPIRIN 81MG EC TABLET PO SCH (08:27)
[2019-10-06] MEDS: ENOXAPARIN 40MG/0.4ML SYR SUBCUT SCH (08:27)
[2019-10-06] MEDS: INSULIN LISPRO 100 UNITS/ML SUBCUT SCH ×5 (08:28→20:24)
[2019-10-06 20:37] LABS: CLARITY URINE CLEAR (CLEAR); COLOR URINE YELLOW (YELLOW); KETONES URINE NEGATIVE (NEGATIVE); LEUKOCYTE ESTERASE URINE NEGATIVE (NEGATIVE); NITRITE URINE NEGATIVE (NEGATIVE); OCCULT BLOOD URINE 2+ (NEGATIVE); PH URINE 5.5 (4.5-8.0); PROTEIN URINE 4+ (NEGATIVE); SPECIFIC GRAVITY URINE 1.022 (1.005-1.030); UROBILINOGEN URINE 0.2 E.U./dL (0.2-1.0)
[2019-10-06 20:51] LABS: *AMPHETAMINES SCREEN URINE NEGATIVE (NEGATIVE)
[2019-10-06 20:52] LABS: *BARBITURATES SCREEN URINE NEGATIVE (NEGATIVE); *BENZODIAZEPINES SCREEN URINE NEGATIVE (NEGATIVE); *COCAINE SCREEN URINE PRESUMTIVE POSITIVE (NEGATIVE); CANNABINOID URINE SCREEN NEGATIVE (NEGATIVE); METHADONE URINE SCREEN NEGATIVE (NEGATIVE); OPIATES URINE SCREEN PRESUMTIVE POSITIVE (NEGATIVE); PHENCYCLIDINE URINE SCREEN NEGATIVE (NEGATIVE)
[2019-10-07] VITALS (11 sets, daily range): BP systolic 123–159; BP diastolic 77–103
[2019-10-07] MEDS: FUROSEMIDE 40MG/4ML VIAL IV SCH ×2 (07:02→16:25)
[2019-10-07] MEDS: BLOOD SUGAR DIAGNOSTIC STRIP TEST SCH ×3 (07:30→17:30)
[2019-10-07] MEDS: HYDROCODONE/ACETAMINOPHEN 5/325MG TABLET PO PRN (08:43)
[2019-10-07] MEDS: ASPIRIN 81MG EC TABLET PO SCH (08:44)
[2019-10-07] MEDS: ENOXAPARIN 40MG/0.4ML SYR SUBCUT SCH (08:46)
[2019-10-07] MEDS: INSULIN LISPRO 100 UNITS/ML SUBCUT SCH ×6 (08:47→18:00)
== END 2019-10-07 18:10 | disposition home or self-care (01) | DRG 194 ==
LOC: ER 20:16 → 5EST 10-05 00:40 → EDBEDREQTM 10-05 00:42 → EDBEDREQ 10-05 00:42 → EDBEDREQDT 10-05 00:42 → ENRESERV 10-05 07:22
PROVIDERS: ADMIT Internal Medicine Nephrology; ATTEND Internal Medicine Nephrology
PROC: 30233N1 Transfusion of Nonautologous Red Blood Cells into Peripheral Vein, Percutaneous Approach (ICD-10-PCS; principal; 2019-10-05)
DX: I13.0 Hypertensive heart and chronic kidney disease with heart failure and stage 1 through stage 4 chronic kidney disease, or unspecified chronic kidney disease (principal); E43 Unspecified severe protein-calorie malnutrition; E11.22 Type 2 diabetes mellitus with diabetic chronic kidney disease; E83.51 Hypocalcemia; I50.41 Acute combined systolic (congestive) and diastolic (congestive) heart failure; N18.3 Chronic kidney disease, stage 3 (moderate); D64.9 Anemia, unspecified; E11.65 Type 2 diabetes mellitus with hyperglycemia; E83.42 Hypomagnesemia; E87.1 Hypo-osmolality and hyponatremia; F14.90 Cocaine use, unspecified, uncomplicated; F17.210 Nicotine dependence, cigarettes, uncomplicated; J44.9 Chronic obstructive pulmonary disease, unspecified; Z68.21 Body mass index [BMI] 21.0-21.9, adult; Z79.899 Other long term (current) drug therapy; Z91.11 Patient's noncompliance with dietary regimen; Z91.19 Patient's noncompliance with other medical treatment and regimen
CPT/HCPCS: 36415; 71045; 80048; 80053; 80305; 81003; 82550; 82553; 82570; 82652; 82962; 83735; 83880; 83970; 84156; 84484; 85025; 86850; 86900; 86920; 87804; 93005; 93306; 99291; J0610; J1650; J1815; J1940; J3475; J7060; P9016

== ENCOUNTER 2020-10-22 15:06 | Inpatient (IN) | payer MEDICAID, OTHER ==
[~2020-10-22] VITALS: Ht 175.3 cm; Wt 82.2 kg
[~2020-10-22 15:06] MED LIST changes: -GABA-531 MT; +GABA-532 MT; -SENN-170 MT; +SENN-257 MT
[2020-10-22] MEDS ORDERED: ALBUTEROL (0.083%) 2.5MG/3ML NEB HHN STA (15:48)
[2020-10-22] MEDS ORDERED: IPRATROPIUM BROMIDE (0.02%) 0.5MG/2.5ML NEB HHN STA (15:48)
[2020-10-22] MEDS ORDERED: CARVEDILOL 12.5MG TABLET PO ONE (16:00)
[2020-10-22] MEDS ORDERED: FUROSEMIDE 20MG/2ML VIAL IVP ONE (16:00)
[2020-10-22 16:14] LABS: EOSINOPHILS % 0.6 % (0.0-5.0); HEMATOCRIT. 38.3 % (42.0-52.0); HEMOGLOBIN. 12.1 g/dL (14.0-18.0); LYMPHOCYTES % 14.5 % (20.0-50.0); MEAN CORPUSCULAR HEMOGLOBIN 25.3 pg (28.0-32.0); MEAN CORPUSCULAR VOLUME 79.9 fL (80.0-94.0); MEAN PLATELET VOLUME 8.5 fl (7.4-10.4); MONOCYTES % 9.6 % (2.0-8.0); NEUTROPHILS % 74.3 % (40.0-76.0); PLATELET 260 x1000/uL (130-400); RED BLOOD CELL COUNT 4.79 mill/uL (4.7-6.1); RED CELL DISTRIBUTION WIDTH 19.7 % (11.6-14.6)
[2020-10-22 16:20] LABS: CHLORIDE 104 mEq/L (98-107)
[2020-10-22 16:23] LABS: PROTHROMBIN TIME 10.4 sec (9.6-11.0)
[2020-10-22 16:24] LABS: ETHANOL BLOOD < 10 mg/dL
[2020-10-22] MEDS ORDERED: ACETAMINOPHEN 325MG TABLET PO ONE (16:30)
[2020-10-22] MEDS ORDERED: INSULIN REGULAR (HUMULIN R) 300UNITS/3ML VIAL IV ONE (16:30)
[2020-10-22 16:49] LABS: DIGOXIN < 0.1 ng/mL (0.9-2.0)
[2020-10-22] MEDS ORDERED: DIGOXIN 500MCG/2ML AMP IV ONE (17:30)
[2020-10-22 17:54] LABS: CLARITY URINE CLEAR (CLEAR); COLOR URINE YELLOW (YELLOW); KETONES URINE NEGATIVE (NEGATIVE); LEUKOCYTE ESTERASE URINE NEGATIVE (NEGATIVE); NITRITE URINE NEGATIVE (NEGATIVE); OCCULT BLOOD URINE 1+ (NEGATIVE); PROTEIN URINE 2+ (NEGATIVE); SPECIFIC GRAVITY URINE 1.012 (1.005-1.030); UROBILINOGEN URINE 0.2 E.U./dL (0.2-1.0)
[2020-10-22 18:14] LABS: *AMPHETAMINES SCREEN URINE NEGATIVE (NEGATIVE); *BARBITURATES SCREEN URINE NEGATIVE (NEGATIVE); *BENZODIAZEPINES SCREEN URINE NEGATIVE (NEGATIVE); *COCAINE SCREEN URINE PRESUMTIVE POSITIVE (NEGATIVE); METHADONE URINE SCREEN NEGATIVE (NEGATIVE); OPIATES URINE SCREEN NEGATIVE (NEGATIVE); PHENCYCLIDINE URINE SCREEN NEGATIVE (NEGATIVE)
[2020-10-22 18:16] LABS: CANNABINOID URINE SCREEN NEGATIVE (NEGATIVE)
[2020-10-22 21:55] VITALS: BP 148/90
[2020-10-22 22:00] VITALS: BP 148/90
[2020-10-22] MEDS ORDERED: NA PHOS,M-B/NA PHOS,DI-BA ENEMA 118ML PR PRN (22:30)
[2020-10-22] MEDS ORDERED: ACETAMINOPHEN 325MG TABLET PO PRN (22:30)
[2020-10-22] MEDS ORDERED: ONDANSETRON HCL 4MG/2ML INJ IV PRN (22:30)
[2020-10-22] MEDS ORDERED: IPRATROPIUM/ALBUTEROL 0.5-3(2.5)MG/3ML NEB NEB PRN (22:30)
[2020-10-22] MEDS ORDERED: DOCUSATE SODIUM 100MG CAPSULE PO PRN (22:30)
[2020-10-22] MEDS ORDERED: MAGNESIUM/ALUMINUM HYDROXIDE/SIMETHICONE 30ML UDC PO PRN (22:30)
[2020-10-22] MEDS ORDERED: MORPHINE SULFATE 2 MG/ML CPJ (NOT FOR IM USE) IV PRN (22:30)
[2020-10-22] MEDS ORDERED: GUAIFENESIN 200MG/10ML SUGAR FREE UDC PO PRN (22:30)
[2020-10-22] MEDS ORDERED: DIPHENHYDRAMINE 50MG/ML VIAL IV PRN (22:30)
[2020-10-22] MEDS ORDERED: LORAZEPAM 2MG/ML CPJ IV PRN (22:30)
[2020-10-22] MEDS ORDERED: DEXTROSE 50% WATER 50ML SYRINGE IV PRN (22:45)
[2020-10-23] VITALS (12 sets, daily range): BP systolic 131–160; BP diastolic 86–110
[2020-10-23] MEDS: HYDROCODONE/ACETAMINOPHEN 5/325MG TABLET PO PRN ×3 (00:04→21:11)
[2020-10-23] MEDS: CLONIDINE 0.1MG TABLET PO PRN ×2 (00:07→09:24)
[2020-10-23] MEDS: BLOOD SUGAR DIAGNOSTIC STRIP TEST SCH ×4 (06:26→21:11)
[2020-10-23 07:32] LABS: CHLORIDE 108 mEq/L (98-107)
[2020-10-23 07:39] LABS: LDL CHOLESTEROL 117 mg/dL (5-100)
[2020-10-23 07:40] LABS: HDL CHOLESTEROL 76 mg/dL (40-59)
[2020-10-23 07:41] LABS: T4 FREE 0.92 ng/dL (0.76-1.46)
[2020-10-23 07:53] LABS: BASOPHILS % 1.4 % (0.0-2.0); EOSINOPHILS % 1.3 % (0.0-5.0); HEMATOCRIT. 33.8 % (42.0-52.0); HEMOGLOBIN. 10.7 g/dL (14.0-18.0); LYMPHOCYTES % 24.7 % (20.0-50.0); MEAN CORPUSCULAR HEMOGLOBIN 24.8 pg (28.0-32.0); MEAN PLATELET VOLUME 8.7 fl (7.4-10.4); MONOCYTES % 11.2 % (2.0-8.0); NEUTROPHILS % 61.4 % (40.0-76.0); PLATELET 226 x1000/uL (130-400); RED BLOOD CELL COUNT 4.33 mill/uL (4.7-6.1); RED CELL DISTRIBUTION WIDTH 18.9 % (11.6-14.6)
[2020-10-23] MEDS: INSULIN LISPRO 100 UNITS/ML SUBCUT SCH ×4 (08:12→21:21)
[2020-10-23] MEDS: FUROSEMIDE 40MG/4ML VIAL IV SCH ×2 (08:12→21:10)
[2020-10-23] MEDS: ENOXAPARIN 40MG/0.4ML SYR SUBCUT SCH (08:13)
[2020-10-23] MEDS: ASPIRIN 81MG EC TABLET PO SCH (08:13)
[2020-10-23] MEDS: LISINOPRIL 5MG TABLET PO SCH (10:24)
[2020-10-23 13:03] LABS: PHOSPHORUS 2.7 mg/dL (2.5-4.9)
[2020-10-23 14:43] LABS: CREATININE URINE RANDOM < 10.0 mg/dL
[2020-10-23] MEDS: ATORVASTATIN CALCIUM 20MG TABLET PO SCH (21:10)
[2020-10-24] VITALS (12 sets, daily range): BP systolic 135–158; BP diastolic 48–103
[2020-10-24] MEDS: HYDROCODONE/ACETAMINOPHEN 5/325MG TABLET PO PRN ×3 (03:11→20:51)
[2020-10-24] MEDS: CLONIDINE 0.1MG TABLET PO PRN (03:17)
[2020-10-24 06:51] LABS: EOSINOPHILS % 1.5 % (0.0-5.0); HEMATOCRIT. 34.5 % (42.0-52.0); HEMOGLOBIN. 10.9 g/dL (14.0-18.0); LYMPHOCYTES % 25.2 % (20.0-50.0); MEAN CORPUSCULAR HEMOGLOBIN 24.5 pg (28.0-32.0); MEAN CORPUSCULAR VOLUME 77.7 fL (80.0-94.0); MEAN PLATELET VOLUME 8.2 fl (7.4-10.4); MONOCYTES % 12.6 % (2.0-8.0); NEUTROPHILS % 59.7 % (40.0-76.0); PLATELET 240 x1000/uL (130-400); RED BLOOD CELL COUNT 4.44 mill/uL (4.7-6.1); RED CELL DISTRIBUTION WIDTH 19.4 % (11.6-14.6)
[2020-10-24 07:05] LABS: CHLORIDE 106 mEq/L (98-107)
[2020-10-24] MEDS: BLOOD SUGAR DIAGNOSTIC STRIP TEST SCH ×4 (07:30→20:52)
[2020-10-24] MEDS: ASPIRIN 81MG EC TABLET PO SCH (08:33)
[2020-10-24] MEDS: FUROSEMIDE 40MG/4ML VIAL IV SCH ×2 (08:33→20:50)
[2020-10-24] MEDS: LISINOPRIL 5MG TABLET PO SCH (08:33)
[2020-10-24] MEDS: INSULIN LISPRO 100 UNITS/ML SUBCUT SCH ×4 (08:33→21:06)
[2020-10-24] MEDS: ENOXAPARIN 40MG/0.4ML SYR SUBCUT SCH (08:34)
[2020-10-24] MEDS ORDERED: MAGNESIUM 2 G PREMIX 50 ML IV ONE (12:00)
[2020-10-24] MEDS ORDERED: POTASSIUM CHLORIDE 20MEQ TABLET SR PO SCH (12:15)
[2020-10-24] MEDS: CARVEDILOL 6.25 MG TABLET PO SCH ×2 (12:27→20:51)
[2020-10-24] MEDS: ATORVASTATIN CALCIUM 20MG TABLET PO SCH (20:50)
[2020-10-25] VITALS (11 sets, daily range): BP systolic 137–168; BP diastolic 78–101
[2020-10-25] MEDS: HYDROCODONE/ACETAMINOPHEN 5/325MG TABLET PO PRN ×2 (00:58→16:42)
[2020-10-25 06:11] LABS: CHLORIDE 104 mEq/L (98-107)
[2020-10-25] MEDS: BLOOD SUGAR DIAGNOSTIC STRIP TEST SCH ×3 (06:12→16:28)
[2020-10-25 06:35] LABS: BASOPHILS % 1.3 % (0.0-2.0); EOSINOPHILS % 1.1 % (0.0-5.0); HEMATOCRIT. 34.5 % (42.0-52.0); LYMPHOCYTES % 28.4 % (20.0-50.0); MEAN CORPUSCULAR HEMOGLOBIN 24.8 pg (28.0-32.0); MEAN CORPUSCULAR VOLUME 77.9 fL (80.0-94.0); MEAN PLATELET VOLUME 8.6 fl (7.4-10.4); MONOCYTES % 12.7 % (2.0-8.0); NEUTROPHILS % 56.5 % (40.0-76.0); PLATELET 267 x1000/uL (130-400); RED BLOOD CELL COUNT 4.42 mill/uL (4.7-6.1); RED CELL DISTRIBUTION WIDTH 19.2 % (11.6-14.6)
[2020-10-25] MEDS: FUROSEMIDE 40MG/4ML VIAL IV SCH (08:00)
[2020-10-25] MEDS: ASPIRIN 81MG EC TABLET PO SCH (08:00)
[2020-10-25] MEDS: CARVEDILOL 6.25 MG TABLET PO SCH (08:00)
[2020-10-25] MEDS: LISINOPRIL 5MG TABLET PO SCH (08:00)
[2020-10-25] MEDS: ENOXAPARIN 40MG/0.4ML SYR SUBCUT SCH (08:00)
[2020-10-25] MEDS: INSULIN LISPRO 100 UNITS/ML SUBCUT SCH ×3 (08:01→16:46)
[2020-10-25 08:08] LABS: *CREATININE RANDOM URINE 8.6 mg/dL (Not Estab.); MICROALBUMIN RANDOM URINE 327.2 ug/mL (Not Estab.)
[2020-10-26] MEDS ORDERED: FUROSEMIDE 40MG/4ML VIAL IV SCH (09:00)
== END 2020-10-25 17:07 | disposition home or self-care (01) | DRG 816 ==
LOC: ER 15:06 → 3WST 17:41 → EDBEDREQSVC 17:45 → EDBEDREQ 17:45 → EDBEDREQTM 17:45 → ENRESERV 20:11
PROVIDERS: ADMIT Internal Medicine; ATTEND Internal Medicine
PROC: 4A00X4Z Measurement of Central Nervous Electrical Activity, External Approach (ICD-10-PCS; principal; 2020-10-25)
DX: T40.5X1A Poisoning by cocaine, accidental (unintentional), initial encounter (principal); J96.00 Acute respiratory failure, unspecified whether with hypoxia or hypercapnia; I13.0 Hypertensive heart and chronic kidney disease with heart failure and stage 1 through stage 4 chronic kidney disease, or unspecified chronic kidney disease; I50.23 Acute on chronic systolic (congestive) heart failure; N17.9 Acute kidney failure, unspecified; N18.9 Chronic kidney disease, unspecified; D64.9 Anemia, unspecified; E11.22 Type 2 diabetes mellitus with diabetic chronic kidney disease; E11.40 Type 2 diabetes mellitus with diabetic neuropathy, unspecified; F14.10 Cocaine abuse, uncomplicated; F17.210 Nicotine dependence, cigarettes, uncomplicated; I25.10 Atherosclerotic heart disease of native coronary artery without angina pectoris; I42.9 Cardiomyopathy, unspecified; E87.1 Hypo-osmolality and hyponatremia; E78.5 Hyperlipidemia, unspecified; E43 Unspecified severe protein-calorie malnutrition; J68.0 Bronchitis and pneumonitis due to chemicals, gases, fumes and vapors; E87.5 Hyperkalemia; Z82.49 Family history of ischemic heart disease and other diseases of the circulatory system; Z86.73 Personal history of transient ischemic attack (TIA), and cerebral infarction without residual deficits; Z91.14 Patient's other noncompliance with medication regimen; Z79.4 Long term (current) use of insulin; Z79.899 Other long term (current) drug therapy; Z68.26 Body mass index [BMI] 26.0-26.9, adult; Z59.0 Homelessness; Y92.89 Other specified places as the place of occurrence of the external cause
CPT/HCPCS: 36415; 71045; 80048; 80053; 80061; 80162; 80305; 80320; 81003; 82010; 82043; 82570; 82962; 83036; 83605; 83735; 83880; 83930; 83935; 84100; 84145; 84156; 84439; 84443; 84484; 85025; 93005; 93306; 93880; 94640; 95816; 97162; 97535; 99291; J1160; J1650; J1815; J1940; J3475; G0480

== ENCOUNTER 2020-10-30 07:48 | Inpatient (IN) | payer MEDICAID ==
[~2020-10-30] VITALS: Ht 175.3 cm; Wt 69.1 kg
[~2020-10-30 07:48] MED LIST changes: -BACL-141 MT; -DIGO125T80 MT; -SENN-257 MT; -SERT-112 MT; -SPIR25TA6 MT; -VANC250C12 MT
[2020-10-30 08:32] LABS: BASOPHILS % 1.1 % (0.0-2.0); EOSINOPHILS % 0.8 % (0.0-5.0); HEMATOCRIT. 38.2 % (42.0-52.0); HEMOGLOBIN. 11.7 g/dL (14.0-18.0); LYMPHOCYTES % 26.6 % (20.0-50.0); MEAN CORPUSCULAR HEMOGLOBIN 24.9 pg (28.0-32.0); MEAN CORPUSCULAR VOLUME 81.4 fL (80.0-94.0); MEAN PLATELET VOLUME 8.2 fl (7.4-10.4); MONOCYTES % 10.4 % (2.0-8.0); NEUTROPHILS % 61.1 % (40.0-76.0); PLATELET 252 x1000/uL (130-400); RED BLOOD CELL COUNT 4.69 mill/uL (4.7-6.1); RED CELL DISTRIBUTION WIDTH 20.2 % (11.6-14.6)
[2020-10-30 08:38] LABS: CHLORIDE 106 mEq/L (98-107)
[2020-10-30] MEDS ORDERED: FUROSEMIDE 40MG/4ML VIAL IV ONE (09:45)
[2020-10-30] MEDS ORDERED: INSULIN REGULAR (HUMULIN R) 300UNITS/3ML VIAL SUBCUT ONE (09:45)
[2020-10-30] MEDS ORDERED: ENOXAPARIN 100MG/ML SYR SUBCUT ONE (09:45)
[2020-10-30] MEDS ORDERED: ASPIRIN 81MG TABLET PO ONE (09:45)
[2020-10-30] MEDS ORDERED: ONDANSETRON HCL 4MG/2ML INJ IV PRN (14:15)
[2020-10-30] MEDS ORDERED: DEXTROSE 50% WATER 50ML SYRINGE IV PRN (14:15)
[2020-10-30] MEDS ORDERED: ACETAMINOPHEN 325MG TABLET PO PRN (14:15)
[2020-10-30] MEDS ORDERED: INSULIN GLARGINE UD 100 UNITS/ML SYR SUBCUT SCH ×2 (14:30→22:00)
[2020-10-30] MEDS ORDERED: HYDRALAZINE HCL 100MG TABLET PO SCH ×2 (14:30→21:00)
[2020-10-30 16:30] VITALS: BP 158/113
[2020-10-30] MEDS: INSULIN LISPRO 100 UNITS/ML SUBCUT SCH ×2 (17:18→21:11)
[2020-10-30] MEDS: BLOOD SUGAR DIAGNOSTIC STRIP TEST SCH ×2 (17:18→20:09)
[2020-10-30] MEDS: FUROSEMIDE 40MG/4ML VIAL IVP SCH (17:36)
[2020-10-30 18:15] VITALS: BP 158/113
[2020-10-30 20:00] VITALS: BP 168/118
[2020-10-30] MEDS: HYDROCODONE/ACETAMINOPHEN 5/325MG TABLET PO PRN (21:04)
[2020-10-30 22:15] VITALS: BP 143/87
[2020-10-31] VITALS: BP 163/115
[2020-10-31] MEDS ORDERED: CLONIDINE 0.1MG TABLET PO PRN (00:45)
[2020-10-31] MEDS ORDERED: METOPROLOL TARTRATE 50MG TABLET PO SCH (01:00)
[2020-10-31] MEDS: HYDROCODONE/ACETAMINOPHEN 5/325MG TABLET PO PRN ×2 (01:02→23:16)
[2020-10-31] MEDS: IPRATROPIUM/ALBUTEROL 0.5-3(2.5)MG/3ML NEB HHN SCH ×2 (02:00→14:41)
[2020-10-31 04:00] VITALS: BP 148/114
[2020-10-31] MEDS: HYDRALAZINE HCL 100MG TABLET PO SCH ×3 (06:12→21:33)
[2020-10-31] MEDS: BLOOD SUGAR DIAGNOSTIC STRIP TEST SCH ×4 (06:20→21:33)
[2020-10-31] MEDS: AMLODIPINE 10MG TABLET PO SCH (08:12)
[2020-10-31] MEDS: FUROSEMIDE 40MG/4ML VIAL IVP SCH ×2 (08:14→17:26)
[2020-10-31] MEDS: ENOXAPARIN 40MG/0.4ML SYR SUBCUT SCH (08:14)
[2020-10-31] MEDS: INSULIN LISPRO 100 UNITS/ML SUBCUT SCH ×4 (08:16→21:30)
[2020-10-31 08:21] VITALS: BP 145/96
[2020-10-31 12:03] VITALS: BP 153/115
[2020-10-31] MEDS: CLONIDINE 0.1MG TABLET PO SCH ×2 (14:00→21:33)
[2020-10-31 16:18] VITALS: BP 126/68
[2020-10-31 20:00] VITALS: BP 144/93
[2020-10-31] MEDS: GUAIFENESIN 600MG ER TABLET PO SCH (21:29)
[2020-10-31] MEDS: INSULIN GLARGINE UD 100 UNITS/ML SYR SUBCUT SCH (21:32)
[2020-11-01] VITALS: BP 123/77
[2020-11-01 04:00] VITALS: BP 149/99
[2020-11-01] MEDS: CLONIDINE 0.1MG TABLET PO SCH ×2 (05:55→14:00)
[2020-11-01] MEDS: HYDRALAZINE HCL 100MG TABLET PO SCH ×2 (05:55→14:00)
[2020-11-01] MEDS: IPRATROPIUM/ALBUTEROL 0.5-3(2.5)MG/3ML NEB HHN SCH (06:00)
[2020-11-01] MEDS: BLOOD SUGAR DIAGNOSTIC STRIP TEST SCH ×3 (07:21→18:09)
[2020-11-01] MEDS: INSULIN LISPRO 100 UNITS/ML SUBCUT SCH ×3 (07:22→17:50)
[2020-11-01 08:00] VITALS: BP 115/82
[2020-11-01] MEDS: AMLODIPINE 10MG TABLET PO SCH (09:09)
[2020-11-01] MEDS: FUROSEMIDE 40MG/4ML VIAL IVP SCH ×2 (09:09→17:38)
[2020-11-01] MEDS: GUAIFENESIN 600MG ER TABLET PO SCH (09:09)
[2020-11-01] MEDS: ENOXAPARIN 40MG/0.4ML SYR SUBCUT SCH (09:10)
[2020-11-01] MEDS: HYDROCODONE/ACETAMINOPHEN 5/325MG TABLET PO PRN (09:20)
[2020-11-01] MEDS: INSULIN GLARGINE UD 100 UNITS/ML SYR SUBCUT SCH (10:25)
[2020-11-01 11:53] VITALS: BP 115/70
[2020-11-01] MEDS ORDERED: LOSA100T32 MT (12:52)
[2020-11-01] MEDS ORDERED: HYDR100T26 PO (12:52)
[2020-11-01] MEDS ORDERED: AMLO10TA80 PO (12:52)
[2020-11-01] MEDS ORDERED: ALBU18HF2 IH (12:52)
[2020-11-01] MEDS ORDERED: FURO-151 MT (12:52)
[2020-11-01] MEDS ORDERED: CARV25TA47 MT (12:52)
[2020-11-01] MEDS ORDERED: FLUT1DIS3 INH (12:52)
[2020-11-01 16:00] VITALS: BP 122/76
[2020-11-01 17:22] VITALS: BP 122/76
== END 2020-11-01 18:35 | disposition home or self-care (01) | DRG 194 ==
LOC: ER 08:09 → 6WST 11:39 → EDBEDREQ 11:42 → ENRESERV 13:45
PROVIDERS: ADMIT Internal Medicine; ATTEND Internal Medicine
DX: I13.0 Hypertensive heart and chronic kidney disease with heart failure and stage 1 through stage 4 chronic kidney disease, or unspecified chronic kidney disease (principal); E11.22 Type 2 diabetes mellitus with diabetic chronic kidney disease; E11.65 Type 2 diabetes mellitus with hyperglycemia; E43 Unspecified severe protein-calorie malnutrition; I42.9 Cardiomyopathy, unspecified; I50.23 Acute on chronic systolic (congestive) heart failure; J96.00 Acute respiratory failure, unspecified whether with hypoxia or hypercapnia; F14.90 Cocaine use, unspecified, uncomplicated; N17.0 Acute kidney failure with tubular necrosis; F17.210 Nicotine dependence, cigarettes, uncomplicated; I16.0 Hypertensive urgency; N18.9 Chronic kidney disease, unspecified; D64.9 Anemia, unspecified; Z20.822 Contact with and (suspected) exposure to COVID-19; D72.819 Decreased white blood cell count, unspecified; J68.0 Bronchitis and pneumonitis due to chemicals, gases, fumes and vapors; Z79.4 Long term (current) use of insulin; Z79.899 Other long term (current) drug therapy; Z82.49 Family history of ischemic heart disease and other diseases of the circulatory system; Z68.22 Body mass index [BMI] 22.0-22.9, adult; Z71.51 Drug abuse counseling and surveillance of drug abuser
CPT/HCPCS: 36415; 71045; 80048; 80053; 82962; 83880; 84484; 85025; 87426; 93005; 94640; 99291; J1650; J1815; J1940; J2405

== ENCOUNTER 2021-01-17 01:53 | Inpatient (IN) | payer MEDICAID, OTHER ==
[~2021-01-17] VITALS: Ht 175.3 cm; Wt 79.0 kg
[~2021-01-17 01:53] MED LIST changes: +ALBU18HF2 IH; +AMLO10TA80 PO; +FLUT1DIS3 INH; +FURO-151 MT; +HYDR100T26 PO; +LOSA100T32 MT
[2021-01-17] MEDS ORDERED: FUROSEMIDE 40MG/4ML VIAL IV ONE (02:30)
[2021-01-17 02:57] LABS: BASOPHILS % 1.6 % (0.0-2.0); EOSINOPHILS % 1.2 % (0.0-5.0); HEMATOCRIT. 36.9 % (42.0-52.0); HEMOGLOBIN. 11.6 g/dL (14.0-18.0); MEAN CORPUSCULAR HEMOGLOBIN 25.7 pg (28.0-32.0); MEAN CORPUSCULAR VOLUME 81.9 fL (80.0-94.0); MONOCYTES % 7.1 % (2.0-8.0); NEUTROPHILS % 68.1 % (40.0-76.0); PLATELET 457 x1000/uL (130-400); RED CELL DISTRIBUTION WIDTH 17.5 % (11.6-14.6)
[2021-01-17 03:03] LABS: CHLORIDE 108 mEq/L (98-107)
[2021-01-17] MEDS ORDERED: ONDANSETRON HCL 4MG/2ML INJ IV PRN (07:15)
[2021-01-17] MEDS: AMLODIPINE 10MG TABLET PO SCH (08:39)
[2021-01-17] MEDS: ENOXAPARIN 40MG/0.4ML SYR SUBCUT SCH (08:56)
[2021-01-17] MEDS: MORPHINE SULFATE 2 MG/ML CPJ (NOT FOR IM USE) IV PRN ×2 (11:10→23:04)
[2021-01-17 13:00] VITALS: BP 151/107
[2021-01-17] MEDS ORDERED: IPRATROPIUM/ALBUTEROL 0.5-3(2.5)MG/3ML NEB HHN PRN (13:00)
[2021-01-17 13:30] VITALS: BP 151/71
[2021-01-17] MEDS: OMEPRAZOLE 20MG CAPSULE EXTENDED RELEASE PO SCH (14:37)
[2021-01-17] MEDS: CARVEDILOL 12.5MG TABLET PO SCH ×2 (15:10→21:00)
[2021-01-17] MEDS: LOSARTAN POTASSIUM 100 MG TABLET PO SCH (15:10)
[2021-01-17 16:00] VITALS: BP 133/100
[2021-01-17] MEDS: FUROSEMIDE 100MG/10ML VIAL IV SCH (17:15)
[2021-01-17] MEDS: HYDRALAZINE HCL 100MG TABLET PO SCH ×2 (17:54→23:00)
[2021-01-17 20:00] VITALS: BP 113/78
[2021-01-17] MEDS: BUDESONIDE 0.5MG/2ML NEB HHN SCH (20:50)
[2021-01-17] MEDS: IPRATROPIUM/ALBUTEROL 0.5-3(2.5)MG/3ML NEB HHN SCH (20:50)
[2021-01-17] MEDS: GABAPENTIN 300MG CAPSULE PO SCH (23:15)
[2021-01-18] MEDS: IPRATROPIUM/ALBUTEROL 0.5-3(2.5)MG/3ML NEB HHN SCH ×4 (02:24→21:22)
[2021-01-18] MEDS: ACETAMINOPHEN 325MG TABLET PO PRN (03:01)
[2021-01-18 04:00] VITALS: BP 126/94
[2021-01-18] MEDS: HYDRALAZINE HCL 100MG TABLET PO SCH ×2 (06:00→14:45)
[2021-01-18] MEDS: FUROSEMIDE 100MG/10ML VIAL IV SCH ×2 (06:59→17:15)
[2021-01-18] MEDS: OMEPRAZOLE 20MG CAPSULE EXTENDED RELEASE PO SCH (07:01)
[2021-01-18 08:00] VITALS: BP 136/102
[2021-01-18 08:36] LABS: BASOPHILS % 3.4 % (0.0-2.0); EOSINOPHILS % 0.9 % (0.0-5.0); HEMATOCRIT. 36.7 % (42.0-52.0); HEMOGLOBIN. 11.2 g/dL (14.0-18.0); LYMPHOCYTES % 23.3 % (20.0-50.0); MEAN CORPUSCULAR HEMOGLOBIN 25.3 pg (28.0-32.0); MEAN PLATELET VOLUME 8.3 fl (7.4-10.4); MONOCYTES % 9.4 % (2.0-8.0); PLATELET 447 x1000/uL (130-400); RED BLOOD CELL COUNT 4.42 mill/uL (4.7-6.1); RED CELL DISTRIBUTION WIDTH 17.1 % (11.6-14.6)
[2021-01-18 08:52] LABS: CHLORIDE 110 mEq/L (98-107)
[2021-01-18 09:03] LABS: LDL CHOLESTEROL 104 mg/dL (5-100)
[2021-01-18 09:04] LABS: HDL CHOLESTEROL 60 mg/dL (40-59)
[2021-01-18] MEDS: ENOXAPARIN 40MG/0.4ML SYR SUBCUT SCH (09:14)
[2021-01-18] MEDS: MORPHINE SULFATE 2 MG/ML CPJ (NOT FOR IM USE) IV PRN ×2 (09:17→23:07)
[2021-01-18] MEDS: AMLODIPINE 10MG TABLET PO SCH (09:17)
[2021-01-18] MEDS: CARVEDILOL 12.5MG TABLET PO SCH ×2 (09:18→18:08)
[2021-01-18] MEDS: METOLAZONE 2.5MG TABLET PO SCH (09:18)
[2021-01-18] MEDS: LOSARTAN POTASSIUM 100 MG TABLET PO SCH (09:18)
[2021-01-18] MEDS ORDERED: INSULIN GLARGINE UD 100 UNITS/ML SYR SUBCUT SCH (10:00)
[2021-01-18] MEDS ORDERED: DEXTROSE 50% WATER 50ML SYRINGE IV PRN (10:15)
[2021-01-18] MEDS: BUDESONIDE 0.5MG/2ML NEB HHN SCH ×2 (10:43→21:22)
[2021-01-18 12:00] VITALS: BP 105/66
[2021-01-18] MEDS ORDERED: BLOOD SUGAR DIAGNOSTIC STRIP TEST SCH (12:20)
[2021-01-18] MEDS: BLOOD SUGAR DIAGNOSTIC STRIP TEST SCH ×3 (12:57→21:00)
[2021-01-18] MEDS: INSULIN LISPRO 100 UNITS/ML SUBCUT SCH ×3 (13:18→21:00)
[2021-01-18 16:00] VITALS: BP 105/66
[2021-01-18] MEDS: NITROGLYCERIN OINT 1GM/INCH UDPKT TD SCH ×2 (18:08→22:00)
[2021-01-18] MEDS: HYDRALAZINE HCL 50MG TABLET PO SCH (22:00)
[2021-01-18] MEDS: GABAPENTIN 300MG CAPSULE PO SCH (22:59)
[2021-01-19] MEDS: HYDRALAZINE HCL 50MG TABLET PO SCH (06:00)
[2021-01-19 06:43] LABS: BASOPHILS % 0.2 % (0.0-2.0); EOSINOPHILS % 1.6 % (0.0-5.0); HEMATOCRIT. 31.9 % (42.0-52.0); HEMOGLOBIN. 10.1 g/dL (14.0-18.0); MEAN CORPUSCULAR HEMOGLOBIN 25.4 pg (28.0-32.0); MEAN CORPUSCULAR VOLUME 80.7 fL (80.0-94.0); MEAN PLATELET VOLUME 8.7 fl (7.4-10.4); MONOCYTES % 8.3 % (2.0-8.0); NEUTROPHILS % 73.9 % (40.0-76.0); PLATELET 335 x1000/uL (130-400); RED BLOOD CELL COUNT 3.96 mill/uL (4.7-6.1); RED CELL DISTRIBUTION WIDTH 16.9 % (11.6-14.6)
[2021-01-19] MEDS: NITROGLYCERIN OINT 1GM/INCH UDPKT TD SCH (06:50)
[2021-01-19] MEDS: BLOOD SUGAR DIAGNOSTIC STRIP TEST SCH ×4 (06:59→21:00)
[2021-01-19] MEDS: FUROSEMIDE 100MG/10ML VIAL IV SCH ×2 (06:59→17:52)
[2021-01-19 07:51] VITALS: BP 130/82
[2021-01-19] MEDS: AMLODIPINE 10MG TABLET PO SCH (08:15)
[2021-01-19] MEDS: FAMOTIDINE 20MG TABLET PO SCH (08:15)
[2021-01-19] MEDS: METOLAZONE 2.5MG TABLET PO SCH (08:15)
[2021-01-19] MEDS: CARVEDILOL 12.5MG TABLET PO SCH (08:15)
[2021-01-19] MEDS: LOSARTAN POTASSIUM 100 MG TABLET PO SCH (08:15)
[2021-01-19] MEDS: INSULIN LISPRO 100 UNITS/ML SUBCUT SCH ×4 (08:16→21:00)
[2021-01-19] MEDS: ENOXAPARIN 40MG/0.4ML SYR SUBCUT SCH (08:16)
[2021-01-19] MEDS: INSULIN GLARGINE UD 100 UNITS/ML SYR SUBCUT SCH (11:08)
[2021-01-19 11:37] VITALS: BP 105/66
[2021-01-19] MEDS: ISOSORB DINIT/HYDRALAZINE HCL 20/37.5MG TABLET PO SCH ×2 (14:08→20:50)
[2021-01-19 16:45] VITALS: BP 111/72
[2021-01-19] MEDS: CARVEDILOL 6.25 MG TABLET PO SCH (17:28)
[2021-01-19 18:11] LABS: *AMPHETAMINES SCREEN URINE NEGATIVE (NEGATIVE); *BARBITURATES SCREEN URINE NEGATIVE (NEGATIVE); *BENZODIAZEPINES SCREEN URINE NEGATIVE (NEGATIVE); *COCAINE SCREEN URINE PRESUMTIVE POSITIVE (NEGATIVE); METHADONE URINE SCREEN NEGATIVE (NEGATIVE)
[2021-01-19 18:12] LABS: CANNABINOID URINE SCREEN NEGATIVE (NEGATIVE); OPIATES URINE SCREEN PRESUMTIVE POSITIVE (NEGATIVE); PHENCYCLIDINE URINE SCREEN NEGATIVE (NEGATIVE)
[2021-01-19 20:00] VITALS: BP 119/80
[2021-01-19] MEDS: GABAPENTIN 300MG CAPSULE PO SCH (20:50)
[2021-01-19] MEDS: MORPHINE SULFATE 2 MG/ML CPJ (NOT FOR IM USE) IV PRN (20:51)
[2021-01-19] MEDS: IPRATROPIUM/ALBUTEROL 0.5-3(2.5)MG/3ML NEB HHN SCH ×2 (21:05)
[2021-01-19] MEDS: BUDESONIDE 0.5MG/2ML NEB HHN SCH (21:06)
[2021-01-20] VITALS: BP 115/79
[2021-01-20 04:00] VITALS: BP 121/85
[2021-01-20] MEDS: BLOOD SUGAR DIAGNOSTIC STRIP TEST SCH ×2 (06:26→12:20)
[2021-01-20] MEDS: ISOSORB DINIT/HYDRALAZINE HCL 20/37.5MG TABLET PO SCH ×2 (06:49→14:00)
[2021-01-20] MEDS: FUROSEMIDE 100MG/10ML VIAL IV SCH (08:10)
[2021-01-20] MEDS: FAMOTIDINE 20MG TABLET PO SCH (08:11)
[2021-01-20] MEDS: ACETAMINOPHEN 325MG TABLET PO PRN (08:11)
[2021-01-20] MEDS: AMLODIPINE 10MG TABLET PO SCH (08:11)
[2021-01-20] MEDS: METOLAZONE 2.5MG TABLET PO SCH (08:11)
[2021-01-20] MEDS: LOSARTAN POTASSIUM 100 MG TABLET PO SCH (08:11)
[2021-01-20] MEDS: INSULIN LISPRO 100 UNITS/ML SUBCUT SCH ×2 (08:15→12:50)
[2021-01-20] MEDS ORDERED: ENOXAPARIN 30MG/0.3ML SYR SUBCUT SCH (09:00)
[2021-01-20] MEDS: CARVEDILOL 6.25 MG TABLET PO SCH (09:00)
[2021-01-20] MEDS: INSULIN GLARGINE UD 100 UNITS/ML SYR SUBCUT SCH (10:00)
[2021-01-20 13:40] VITALS: BP 128/68
== END 2021-01-20 16:34 | disposition home or self-care (01) | DRG 816 ==
LOC: ER 01:53 → EDBEDREQ 02:26 → 6WST 04:59 → EDBEDREQTM 05:26 → EDBEDREQ 05:26 → ENRESERV 11:57
PROVIDERS: ADMIT Hospitalist; ATTEND Hospitalist
DX: T40.5X1A Poisoning by cocaine, accidental (unintentional), initial encounter (principal); J96.00 Acute respiratory failure, unspecified whether with hypoxia or hypercapnia; I50.23 Acute on chronic systolic (congestive) heart failure; J90 Pleural effusion, not elsewhere classified; I42.0 Dilated cardiomyopathy; I13.0 Hypertensive heart and chronic kidney disease with heart failure and stage 1 through stage 4 chronic kidney disease, or unspecified chronic kidney disease; J68.0 Bronchitis and pneumonitis due to chemicals, gases, fumes and vapors; E11.22 Type 2 diabetes mellitus with diabetic chronic kidney disease; E11.65 Type 2 diabetes mellitus with hyperglycemia; E78.5 Hyperlipidemia, unspecified; F17.210 Nicotine dependence, cigarettes, uncomplicated; N18.9 Chronic kidney disease, unspecified; M50.90 Cervical disc disorder, unspecified, unspecified cervical region; Z60.2 Problems related to living alone; I44.0 Atrioventricular block, first degree; Y92.89 Other specified places as the place of occurrence of the external cause; Z79.4 Long term (current) use of insulin; Z82.49 Family history of ischemic heart disease and other diseases of the circulatory system; Z86.73 Personal history of transient ischemic attack (TIA), and cerebral infarction without residual deficits; Z87.01 Personal history of pneumonia (recurrent); Z99.81 Dependence on supplemental oxygen; Z79.899 Other long term (current) drug therapy; Z71.51 Drug abuse counseling and surveillance of drug abuser; Z71.6 Tobacco abuse counseling; Z87.09 Personal history of other diseases of the respiratory system
CPT/HCPCS: 36415; 71045; 80048; 80053; 80061; 80305; 82962; 83036; 83880; 84484; 85025; 93005; 93970; 94640; 97162; 99285; J1650; J1815; J1940; J2270; J2405; J7626

== ENCOUNTER 2021-01-30 07:07 | Inpatient (IN) | payer MEDICAID, OTHER ==
[~2021-01-30] VITALS: Ht 175.3 cm; Wt 77.7 kg
[2021-01-30 08:39] LABS: BASOPHILS % 2.6 % (0.0-2.0); CHLORIDE 104 mEq/L (98-107); EOSINOPHILS % 2.4 % (0.0-5.0); HEMATOCRIT. 30.4 % (42.0-52.0); HEMOGLOBIN. 9.8 g/dL (14.0-18.0); LYMPHOCYTES % 20.4 % (20.0-50.0); MEAN CORPUSCULAR HEMOGLOBIN 25.9 pg (28.0-32.0); MEAN CORPUSCULAR VOLUME 80.3 fL (80.0-94.0); MEAN PLATELET VOLUME 7.7 fl (7.4-10.4); MONOCYTES % 10.6 % (2.0-8.0); PLATELET 404 x1000/uL (130-400); RED BLOOD CELL COUNT 3.79 mill/uL (4.7-6.1); RED CELL DISTRIBUTION WIDTH 16.9 % (11.6-14.6)
[2021-01-30] MEDS ORDERED: FUROSEMIDE 40MG/4ML VIAL IVP ONE (10:30)
[2021-01-30] MEDS ORDERED: ENALAPRIL 2.5MG/2ML VIAL 2ML IV ONE (10:30)
[2021-01-30] MEDS ORDERED: ENALAPRIL 1.25MG/ML VIAL 1ML IV NR (10:48)
[2021-01-30] MEDS ORDERED: ONDANSETRON HCL 4MG/2ML INJ IV PRN (13:30)
[2021-01-30] MEDS ORDERED: CLONIDINE 0.1MG TABLET PO NR (15:00)
[2021-01-30] MEDS ORDERED: DEXTROSE 50% WATER 50ML SYRINGE IV PRN (16:15)
[2021-01-30] MEDS ORDERED: IPRATROPIUM/ALBUTEROL 0.5-3(2.5)MG/3ML NEB HHN PRN (16:15)
[2021-01-30] MEDS: AMLODIPINE 10MG TABLET PO SCH (17:08)
[2021-01-30] MEDS: BLOOD SUGAR DIAGNOSTIC STRIP TEST SCH ×2 (17:36→20:45)
[2021-01-30] MEDS: LOSARTAN POTASSIUM 100 MG TABLET PO SCH (17:37)
[2021-01-30] MEDS: FUROSEMIDE 40MG/4ML VIAL IVP SCH (18:11)
[2021-01-30] MEDS: INSULIN LISPRO 100 UNITS/ML SUBCUT SCH ×2 (18:36→20:46)
[2021-01-30 20:20] VITALS: BP 168/99
[2021-01-30] MEDS: CARVEDILOL 6.25 MG TABLET PO SCH (20:45)
[2021-01-30 22:03] VITALS: BP 168/99
[2021-01-30] MEDS ORDERED: *PATIENT'S OWN MEDICATION STORAGE XX SCH (23:15)
[2021-01-31] VITALS: BP 127/93
[2021-01-31 04:00] VITALS: BP 122/88
[2021-01-31] MEDS: ACETAMINOPHEN 325MG TABLET PO PRN ×2 (04:52→21:39)
[2021-01-31] MEDS ORDERED: HYDROCODONE/ACETAMINOPHEN 5/325MG TABLET PO PRN (05:15)
[2021-01-31] MEDS: BLOOD SUGAR DIAGNOSTIC STRIP TEST SCH ×4 (06:10→20:32)
[2021-01-31] MEDS: HYDROCODONE/ACETAMINOPHEN 10/325MG TABLET PO PRN ×2 (06:16→16:12)
[2021-01-31] MEDS: FUROSEMIDE 40MG/4ML VIAL IVP SCH ×2 (06:16→17:48)
[2021-01-31] MEDS: INSULIN LISPRO 100 UNITS/ML SUBCUT SCH ×4 (06:25→20:39)
[2021-01-31 07:50] VITALS: BP 131/95
[2021-01-31] MEDS ORDERED: ENOXAPARIN 30MG/0.3ML SYR SUBCUT SCH (09:00)
[2021-01-31] MEDS ORDERED: ENOXAPARIN 40MG/0.4ML SYR SUBCUT SCH (09:00)
[2021-01-31] MEDS: AMLODIPINE 10MG TABLET PO SCH (09:16)
[2021-01-31] MEDS: CARVEDILOL 6.25 MG TABLET PO SCH ×2 (09:16→20:40)
[2021-01-31] MEDS: LOSARTAN POTASSIUM 100 MG TABLET PO SCH (09:16)
[2021-01-31 09:39] LABS: BASOPHILS % 0.6 % (0.0-2.0); EOSINOPHILS % 2.8 % (0.0-5.0); HEMOGLOBIN. 11.8 g/dL (14.0-18.0); LYMPHOCYTES % 19.5 % (20.0-50.0); MEAN CORPUSCULAR HEMOGLOBIN 25.7 pg (28.0-32.0); MEAN CORPUSCULAR VOLUME 80.9 fL (80.0-94.0); MEAN PLATELET VOLUME 7.6 fl (7.4-10.4); MONOCYTES % 9.4 % (2.0-8.0); NEUTROPHILS % 67.7 % (40.0-76.0); PLATELET 435 x1000/uL (130-400); RED BLOOD CELL COUNT 4.57 mill/uL (4.7-6.1); RED CELL DISTRIBUTION WIDTH 16.9 % (11.6-14.6)
[2021-01-31 12:00] VITALS: BP 131/98
[2021-01-31 16:00] VITALS: BP 129/94
[2021-01-31 20:00] VITALS: BP 140/99
[2021-02-01] VITALS: BP 133/97
[2021-02-01] MEDS: HYDROCODONE/ACETAMINOPHEN 10/325MG TABLET PO PRN ×4 (00:07→22:21)
[2021-02-01 04:00] VITALS: BP 142/96
[2021-02-01] MEDS: BLOOD SUGAR DIAGNOSTIC STRIP TEST SCH ×4 (05:51→20:31)
[2021-02-01] MEDS: FUROSEMIDE 40MG/4ML VIAL IVP SCH ×2 (06:26→17:29)
[2021-02-01] MEDS: INSULIN LISPRO 100 UNITS/ML SUBCUT SCH ×4 (06:27→20:31)
[2021-02-01 08:00] VITALS: BP 149/98
[2021-02-01] MEDS: CARVEDILOL 6.25 MG TABLET PO SCH ×2 (08:27→20:31)
[2021-02-01] MEDS: ENOXAPARIN 40MG/0.4ML SYR SUBCUT SCH (08:27)
[2021-02-01] MEDS: LOSARTAN POTASSIUM 100 MG TABLET PO SCH (08:27)
[2021-02-01] MEDS: AMLODIPINE 10MG TABLET PO SCH (08:27)
[2021-02-01] MEDS: ACETAMINOPHEN 325MG TABLET PO PRN (12:28)
[2021-02-01 16:00] VITALS: BP 136/95
[2021-02-01 19:00] LABS: *BARBITURATES SCREEN URINE NEGATIVE (NEGATIVE); *BENZODIAZEPINES SCREEN URINE NEGATIVE (NEGATIVE); *COCAINE SCREEN URINE PRESUMTIVE POSITIVE (NEGATIVE)
[2021-02-01 19:01] LABS: *AMPHETAMINES SCREEN URINE NEGATIVE (NEGATIVE); CANNABINOID URINE SCREEN NEGATIVE (NEGATIVE); METHADONE URINE SCREEN NEGATIVE (NEGATIVE); OPIATES URINE SCREEN PRESUMTIVE POSITIVE (NEGATIVE); PHENCYCLIDINE URINE SCREEN NEGATIVE (NEGATIVE)
[2021-02-01 20:00] VITALS: BP 141/96
[2021-02-02] VITALS: BP 132/97
[2021-02-02 04:00] VITALS: BP 142/100
[2021-02-02] MEDS: HYDROCODONE/ACETAMINOPHEN 10/325MG TABLET PO PRN ×3 (04:39→22:45)
[2021-02-02] MEDS: BLOOD SUGAR DIAGNOSTIC STRIP TEST SCH ×4 (06:03→20:57)
[2021-02-02] MEDS: FUROSEMIDE 40MG/4ML VIAL IVP SCH ×2 (06:17→17:21)
[2021-02-02] MEDS: INSULIN LISPRO 100 UNITS/ML SUBCUT SCH ×4 (06:18→20:57)
[2021-02-02 08:00] VITALS: BP 139/95
[2021-02-02] MEDS: AMLODIPINE 10MG TABLET PO SCH (08:35)
[2021-02-02] MEDS: ENOXAPARIN 40MG/0.4ML SYR SUBCUT SCH (08:35)
[2021-02-02] MEDS: LOSARTAN POTASSIUM 100 MG TABLET PO SCH (08:35)
[2021-02-02] MEDS: CARVEDILOL 6.25 MG TABLET PO SCH ×2 (08:36→20:56)
[2021-02-02 12:00] VITALS: BP 138/89
[2021-02-02 16:00] VITALS: BP 157/98
[2021-02-02 20:00] VITALS: BP 136/99
[2021-02-03] VITALS: BP 115/90
[2021-02-03 04:00] VITALS: BP 131/95
[2021-02-03] MEDS: FUROSEMIDE 40MG/4ML VIAL IVP SCH (06:37)
[2021-02-03] MEDS: BLOOD SUGAR DIAGNOSTIC STRIP TEST SCH ×2 (06:38→11:51)
[2021-02-03] MEDS: INSULIN LISPRO 100 UNITS/ML SUBCUT SCH ×2 (06:38→12:02)
[2021-02-03 07:08] LABS: HEMATOCRIT. 34.7 % (42.0-52.0); MEAN CORPUSCULAR HEMOGLOBIN 25.4 pg (28.0-32.0); MEAN CORPUSCULAR VOLUME 80.2 fL (80.0-94.0); MEAN PLATELET VOLUME 7.7 fl (7.4-10.4); PLATELET 488 x1000/uL (130-400); RED BLOOD CELL COUNT 4.33 mill/uL (4.7-6.1); RED CELL DISTRIBUTION WIDTH 16.8 % (11.6-14.6)
[2021-02-03 08:00] VITALS: BP 147/104
[2021-02-03] MEDS: LOSARTAN POTASSIUM 100 MG TABLET PO SCH (08:55)
[2021-02-03] MEDS: AMLODIPINE 10MG TABLET PO SCH (08:55)
[2021-02-03] MEDS: ENOXAPARIN 40MG/0.4ML SYR SUBCUT SCH (08:55)
[2021-02-03] MEDS: CARVEDILOL 6.25 MG TABLET PO SCH (08:55)
[2021-02-03 12:00] VITALS: BP 147/101
[2021-02-03] MEDS: HYDROCODONE/ACETAMINOPHEN 10/325MG TABLET PO PRN (12:07)
[2021-02-03] MEDS ORDERED: LEVO500T89 MT (12:18)
[2021-02-03 13:21] VITALS: BP 133/89
[2021-02-03 15:05] LABS: PLATELET ESTIMATE SLIGHTLY INCREASED
== END 2021-02-03 13:45 | disposition home or self-care (01) | DRG 133 ==
LOC: ER 07:07 → 5WST 10:26 → ENRESERV 17:37
PROVIDERS: ADMIT Internal Medicine; ATTEND Internal Medicine
DX: J96.00 Acute respiratory failure, unspecified whether with hypoxia or hypercapnia (principal); E43 Unspecified severe protein-calorie malnutrition; I50.23 Acute on chronic systolic (congestive) heart failure; N17.9 Acute kidney failure, unspecified; I13.0 Hypertensive heart and chronic kidney disease with heart failure and stage 1 through stage 4 chronic kidney disease, or unspecified chronic kidney disease; N18.9 Chronic kidney disease, unspecified; E11.22 Type 2 diabetes mellitus with diabetic chronic kidney disease; D72.819 Decreased white blood cell count, unspecified; D64.9 Anemia, unspecified; F14.90 Cocaine use, unspecified, uncomplicated; F17.210 Nicotine dependence, cigarettes, uncomplicated; I42.9 Cardiomyopathy, unspecified; J44.9 Chronic obstructive pulmonary disease, unspecified; Z68.25 Body mass index [BMI] 25.0-25.9, adult; Z79.4 Long term (current) use of insulin; Z79.899 Other long term (current) drug therapy; Z71.6 Tobacco abuse counseling
CPT/HCPCS: 36415; 71045; 73700; 74176; 80048; 80053; 80305; 82962; 83880; 84145; 84484; 85025; 93005; 93971; 97161; 99285; J1650; J1815; J1940; J3490

== ENCOUNTER 2021-04-27 02:16 | Emergency (ER) | payer OTHER, MEDICAID ==
[~2021-04-27] VITALS: Ht 172.7 cm; Wt 112.0 kg
[~2021-04-27 02:16] MED LIST changes: -AMLO5TAB88 MT; -HYDR-4135 MT; -HYDR100T26 PO; +LEVO500T89 MT; +TOPUD PO
[2021-04-27] MEDS ORDERED: FUROSEMIDE 40MG/4ML VIAL IVP ONE (02:45)
[2021-04-27 03:20] LABS: BASOPHILS % 2.2 % (0.0-2.0); EOSINOPHILS % 1.3 % (0.0-5.0); HEMATOCRIT. 35.7 % (42.0-52.0); HEMOGLOBIN. 11.1 g/dL (14.0-18.0); LYMPHOCYTES % 21.4 % (20.0-50.0); MEAN CORPUSCULAR HEMOGLOBIN 24.8 pg (28.0-32.0); MEAN CORPUSCULAR VOLUME 79.7 fL (80.0-94.0); MEAN PLATELET VOLUME 7.6 fl (7.4-10.4); MONOCYTES % 9.2 % (2.0-8.0); NEUTROPHILS % 65.9 % (40.0-76.0); PLATELET 428 x1000/uL (130-400); RED BLOOD CELL COUNT 4.48 mill/uL (4.7-6.1); RED CELL DISTRIBUTION WIDTH 22.2 % (11.6-14.6)
[2021-04-27 03:26] LABS: CHLORIDE 106 mEq/L (98-107)
[2021-04-27 03:33] LABS: ETHANOL BLOOD < 10 mg/dL
[2021-04-27 05:02] LABS: CLARITY URINE CLEAR (CLEAR); COLOR URINE YELLOW (YELLOW); KETONES URINE NEGATIVE (NEGATIVE); LEUKOCYTE ESTERASE URINE NEGATIVE (NEGATIVE); NITRITE URINE NEGATIVE (NEGATIVE); OCCULT BLOOD URINE TRACE (NEGATIVE); PROTEIN URINE 3+ (NEGATIVE); SPECIFIC GRAVITY URINE 1.013 (1.005-1.030); UROBILINOGEN URINE 0.2 E.U./dL (0.2-1.0)
[2021-04-27 05:16] LABS: OPIATES URINE SCREEN PRESUMTIVE POSITIVE (NEGATIVE); PHENCYCLIDINE URINE SCREEN NEGATIVE (NEGATIVE)
[2021-04-27 05:17] LABS: *AMPHETAMINES SCREEN URINE NEGATIVE (NEGATIVE); *BARBITURATES SCREEN URINE NEGATIVE (NEGATIVE); *BENZODIAZEPINES SCREEN URINE NEGATIVE (NEGATIVE); *COCAINE SCREEN URINE PRESUMTIVE POSITIVE (NEGATIVE); CANNABINOID URINE SCREEN PRESUMTIVE POSITIVE (NEGATIVE); METHADONE URINE SCREEN NEGATIVE (NEGATIVE)
[2021-04-27 05:48] LABS: PLATELET ESTIMATE INCREASED
[2021-04-27 08:43] VITALS: BP 143/99
== END 2021-04-27 09:23 | disposition short-term general hospital (02) ==
LOC: ER 02:16 → EDBD 02:16 → ER 09:23 → CANBEDREQ 21:31
DX: I50.21 Acute systolic (congestive) heart failure (principal); I50.84 End stage heart failure; I01.8 Other acute rheumatic heart disease; N43.3 Hydrocele, unspecified; N50.89 Other specified disorders of the male genital organs; F14.90 Cocaine use, unspecified, uncomplicated; F11.90 Opioid use, unspecified, uncomplicated; J44.9 Chronic obstructive pulmonary disease, unspecified; E11.9 Type 2 diabetes mellitus without complications; Z79.4 Long term (current) use of insulin
CPT/HCPCS: 36415; 71045; 76870; 80053; 80305; 80320; 81003; 83880; 84484; 85025; 87086; 87426; 93005; 93976; 96374; 99285; J1940; G0480

== ENCOUNTER 2021-05-21 12:35 | Emergency (ER) | payer MEDICAID, OTHER ==
[~2021-05-21] VITALS: Ht 182.9 cm; Wt 91.0 kg
[~2021-05-21 12:35] MED LIST changes: -OMEP40CA12 MT; +OMEP40CA20 MT
[2021-05-21] MEDS ORDERED: FUROSEMIDE 40MG/4ML VIAL IV ONE (13:00)
[2021-05-21 13:56] LABS: HEMATOCRIT. 35.4 % (42.0-52.0); MEAN CORPUSCULAR HEMOGLOBIN 24.5 pg (28.0-32.0); MEAN CORPUSCULAR VOLUME 79.2 fL (80.0-94.0); RED BLOOD CELL COUNT 4.47 mill/uL (4.7-6.1); RED CELL DISTRIBUTION WIDTH 21.8 % (11.6-14.6)
[2021-05-21 14:01] LABS: CHLORIDE 105 mEq/L (98-107)
[2021-05-21 14:28] LABS: PLATELET ESTIMATE NORMAL
[2021-05-21 14:32] LABS: PLATELET 332 x1000/uL (130-400)
[2021-05-21] MEDS ORDERED: ASPIRIN 325MG TABLET PO NR (14:45)
[2021-05-21] MEDS ORDERED: INSULIN REGULAR (HUMULIN R) 300UNITS/3ML VIAL SUBCUT NR (14:45)
[2021-05-21] MEDS ORDERED: HYDROCODONE/ACETAMINOPHEN 5/325MG TABLET PO ONE (15:15)
[2021-05-21] MEDS ORDERED: MORPHINE SULFATE 4 MG/ML CPJ (NOT FOR IM USE) IV ONE (16:00)
[2021-05-21] MEDS ORDERED: MORPHINE SULFATE 2 MG/ML CPJ (NOT FOR IM USE) IV NR (16:00)
[2021-05-21 19:14] VITALS: BP 124/98
== END 2021-05-21 19:28 | disposition short-term general hospital (02) ==
LOC: ER 12:44
DX: M79.669 Pain in unspecified lower leg (principal); I50.9 Heart failure, unspecified; J44.9 Chronic obstructive pulmonary disease, unspecified; E11.9 Type 2 diabetes mellitus without complications; Z79.899 Other long term (current) drug therapy; Z79.4 Long term (current) use of insulin
CPT/HCPCS: 36415; 71045; 80053; 82962; 83880; 84484; 85025; 93005; 93970; 96372; 96374; 96375; 99285; J1815; J1940; J2270

== ENCOUNTER 2021-06-07 08:04 | Emergency (ER) | payer MEDICAID, OTHER ==
[~2021-06-07] VITALS: Ht 172.7 cm; Wt 72.0 kg
[2021-06-07] MEDS ORDERED: ALBUTEROL (0.083%) 2.5MG/3ML NEB HHN STA (08:25)
[2021-06-07] MEDS ORDERED: METHYLPREDNISOLONE SOD SUCC 125 MG/2 ML VIAL IV STA (08:25)
[2021-06-07] MEDS ORDERED: IPRATROPIUM BROMIDE (0.02%) 0.5MG/2.5ML NEB HHN STA (08:25)
[2021-06-07 09:05] LABS: HEMATOCRIT. 35.3 % (42.0-52.0); HEMOGLOBIN. 10.9 g/dL (14.0-18.0); MEAN CORPUSCULAR HEMOGLOBIN 24.5 pg (28.0-32.0); MEAN CORPUSCULAR VOLUME 79.4 fL (80.0-94.0); MEAN PLATELET VOLUME 7.3 fl (7.4-10.4); PLATELET 433 x1000/uL (130-400); RED BLOOD CELL COUNT 4.45 mill/uL (4.7-6.1); RED CELL DISTRIBUTION WIDTH 19.7 % (11.6-14.6)
[2021-06-07 09:09] LABS: CHLORIDE 106 mEq/L (98-107)
[2021-06-07] MEDS ORDERED: FUROSEMIDE 40MG/4ML VIAL IVP ONE (09:30)
[2021-06-07] MEDS ORDERED: HYDROCODONE/ACETAMINOPHEN 10/325MG TABLET PO ONE (10:00)
[2021-06-07 11:22] LABS: PLATELET ESTIMATE SLIGHTLY INCREASED
[2021-06-07 13:30] VITALS: BP 147/100
== END 2021-06-07 13:54 | disposition short-term general hospital (02) ==
LOC: ER 08:04 → CANBEDREQ 19:35
DX: I13.0 Hypertensive heart and chronic kidney disease with heart failure and stage 1 through stage 4 chronic kidney disease, or unspecified chronic kidney disease (principal); I50.9 Heart failure, unspecified; E11.65 Type 2 diabetes mellitus with hyperglycemia; E11.22 Type 2 diabetes mellitus with diabetic chronic kidney disease; N18.9 Chronic kidney disease, unspecified; D64.9 Anemia, unspecified; R94.31 Abnormal electrocardiogram [ECG] [EKG]; Z79.4 Long term (current) use of insulin; Z79.899 Other long term (current) drug therapy
CPT/HCPCS: 36415; 71045; 80053; 83880; 84484; 85025; 87426; 93005; 94644; 96374; 96375; 99291; J1940; J2930; Z7610

== ENCOUNTER 2021-06-25 12:58 | Emergency (ER) | payer MEDICAID, OTHER ==
[~2021-06-25] VITALS: Ht 175.3 cm; Wt 85.0 kg
[2021-06-25] MEDS ORDERED: ONDANSETRON 4MG ODT PO STA (14:53)
[2021-06-25 15:45] LABS: BASOPHILS % 1.4 % (0.0-2.0); EOSINOPHILS % 0.7 % (0.0-5.0); HEMATOCRIT. 30.9 % (42.0-52.0); HEMOGLOBIN. 9.6 g/dL (14.0-18.0); MEAN CORPUSCULAR HEMOGLOBIN 24.1 pg (28.0-32.0); MEAN CORPUSCULAR VOLUME 77.6 fL (80.0-94.0); MEAN PLATELET VOLUME 8.4 fl (7.4-10.4); MONOCYTES % 13.9 % (2.0-8.0); PLATELET 278 x1000/uL (130-400); RED BLOOD CELL COUNT 3.98 mill/uL (4.7-6.1); RED CELL DISTRIBUTION WIDTH 19.7 % (11.6-14.6)
[2021-06-25 15:49] LABS: CHLORIDE 105 mEq/L (98-107)
[2021-06-25] MEDS ORDERED: FUROSEMIDE 40MG/4ML VIAL IVP ONE (17:45)
[2021-06-25] MEDS ORDERED: ONDANSETRON HCL 4MG/2ML INJ IV ONE (18:30)
[2021-06-25] MEDS ORDERED: SODIUM POLYSTYRENE SULFONATE 15 G/60 ML BOT PO ONE (19:15)
[2021-06-25] MEDS ORDERED: INSULIN REGULAR (HUMULIN R) 300UNITS/3ML VIAL IV ONE (19:15)
[2021-06-25] MEDS ORDERED: DEXTROSE 50% WATER 50ML SYRINGE IV ONE (19:15)
[2021-06-25 20:06] VITALS: BP 127/89
== END 2021-06-25 21:22 ==
LOC: ER 13:06 → CANBEDREQ 06-26 06:35
DX: I11.0 Hypertensive heart disease with heart failure (principal); I50.9 Heart failure, unspecified; R60.0 Localized edema; N17.9 Acute kidney failure, unspecified; E11.9 Type 2 diabetes mellitus without complications; J44.9 Chronic obstructive pulmonary disease, unspecified; Z79.899 Other long term (current) drug therapy
CPT/HCPCS: 36415; 71045; 80053; 83690; 83880; 84484; 85025; 96374; 96375; 99284; J1815; J1940; J2405; Q0162

== ENCOUNTER 2021-08-11 16:53 | Emergency (ER) | payer MEDICAID, OTHER ==
[~2021-08-11] VITALS: Ht 175.3 cm; Wt 70.0 kg
[2021-08-11 17:00] VITALS: BP 122/86
[2021-08-11] MEDS ORDERED: GABA-532 MT (17:10)
[2021-08-11] MEDS ORDERED: GABAPENTIN 300MG CAPSULE PO ONE (17:15)
== END 2021-08-11 17:49 | disposition home or self-care (01) ==
LOC: ER 16:53
DX: E11.40 Type 2 diabetes mellitus with diabetic neuropathy, unspecified (principal); I11.0 Hypertensive heart disease with heart failure; I50.9 Heart failure, unspecified; J44.1 Chronic obstructive pulmonary disease with (acute) exacerbation; Z79.899 Other long term (current) drug therapy
CPT/HCPCS: 99283

== ENCOUNTER 2022-05-12 17:31 | Inpatient (IN) | payer MEDICAID, OTHER ==
[~2022-05-12] VITALS: Ht 170.2 cm; Wt 67.6 kg
[~2022-05-12 17:31] MED LIST changes: +ACET-2708 PO; +ASPI-1497 PO; +ATOR-2 MT; +ATROV IH; +CEPH500C2 MT; +FLUT1DIS6 INH; +FURO80TA3 MT; +FURO80TA3 PO; +HYDR-4134 MT; +INSU100I28 SQ; +LEVO-65 MT; -LEVO500T89 MT; +LOSA25TA3 PO; +METO10TA8 PO; +POTA99TA4 MT; +SERT-112 MT; +SPIR25TA6 MT; +TIOT4MIS3 IH; +TRAM50TA3 MT
[2022-05-12] MEDS ORDERED: ACETAMINOPHEN 325MG TABLET PO ONE (21:45)
[2022-05-12 22:11] LABS: BASOPHILS % 0.2 % (0.0-2.0); EOSINOPHILS % 2.2 % (0.0-5.0); HEMATOCRIT. 32.5 % (42.0-52.0); HEMOGLOBIN. 10.7 g/dL (14.0-18.0); LYMPHOCYTES % 12.8 % (20.0-50.0); MEAN CORPUSCULAR HEMOGLOBIN 28.7 pg (28.0-32.0); MEAN CORPUSCULAR VOLUME 87.3 fL (80.0-94.0); MEAN PLATELET VOLUME 8.2 fl (7.4-10.4); MONOCYTES % 6.1 % (2.0-8.0); NEUTROPHILS % 78.7 % (40.0-76.0); PLATELET 242 x1000/uL (130-400); RED BLOOD CELL COUNT 3.72 mill/uL (4.7-6.1); RED CELL DISTRIBUTION WIDTH 18.6 % (11.6-14.6)
[2022-05-12 22:21] LABS: CHLORIDE 110 mEq/L (98-107)
[2022-05-13] MEDS ORDERED: HYDRALAZINE HCL 25MG TABLET PO PRN (10:15)
[2022-05-13] MEDS ORDERED: ONDANSETRON HCL 4MG/2ML INJ IV PRN (10:15)
[2022-05-13] MEDS ORDERED: NALOXONE HCL 0.4MG/ML VIAL IV PRN (10:30)
[2022-05-13] MEDS: ENOXAPARIN 30MG/0.3ML SYR SUBCUT SCH (11:01)
[2022-05-13] MEDS: HYDROCODONE/ACETAMINOPHEN 5/325MG TABLET PO PRN ×2 (11:02→11:03)
[2022-05-13] MEDS ORDERED: SODIUM CHLORIDE 0.9% 1,000 ML IV SCH (12:15)
[2022-05-13] MEDS: IPRATROPIUM/ALBUTEROL 0.5-3(2.5)MG/3ML NEB HHN SCH ×2 (13:11→20:18)
[2022-05-13 16:08] LABS: CLARITY URINE CLEAR (CLEAR); COLOR URINE YELLOW (YELLOW); KETONES URINE NEGATIVE (NEGATIVE); LEUKOCYTE ESTERASE URINE NEGATIVE (NEGATIVE); NITRITE URINE NEGATIVE (NEGATIVE); OCCULT BLOOD URINE 1+ (NEGATIVE); PH URINE 6.5 (4.5-8.0); PROTEIN URINE 4+ (NEGATIVE); SPECIFIC GRAVITY URINE 1.017 (1.005-1.030); UROBILINOGEN URINE 0.2 E.U./dL (0.2-1.0)
[2022-05-13] MEDS ORDERED: CARVEDILOL 3.125 MG TABLET PO SCH (21:00)
[2022-05-14] MEDS: IPRATROPIUM/ALBUTEROL 0.5-3(2.5)MG/3ML NEB HHN SCH ×2 (00:38→02:19)
[2022-05-14 05:33] VITALS: BP 152/104
[2022-05-14] MEDS: HYDROCODONE/ACETAMINOPHEN 5/325MG TABLET PO PRN ×3 (06:54→20:53)
[2022-05-14 08:00] VITALS: BP 115/111
[2022-05-14] MEDS ORDERED: LOSARTAN POTASSIUM 25 MG TABLET PO SCH (09:00)
[2022-05-14] MEDS ORDERED: FUROSEMIDE 20MG TABLET PO SCH (09:00)
[2022-05-14] MEDS ORDERED: ENOXAPARIN 40MG/0.4ML SYR SUBCUT SCH (09:00)
[2022-05-14 09:54] VITALS: BP 155/111
[2022-05-14] MEDS: ENOXAPARIN 30MG/0.3ML SYR SUBCUT SCH (10:25)
[2022-05-14] MEDS: CARVEDILOL 3.125 MG TABLET PO SCH ×2 (10:26→22:23)
[2022-05-14] MEDS: AMLODIPINE 5MG TABLET PO SCH (10:27)
[2022-05-14 10:38] LABS: BASOPHILS % 1.2 % (0.0-2.0); EOSINOPHILS % 1.9 % (0.0-5.0); HEMATOCRIT. 37.3 % (42.0-52.0); LYMPHOCYTES % 10.9 % (20.0-50.0); MEAN CORPUSCULAR HEMOGLOBIN 27.8 pg (28.0-32.0); MEAN CORPUSCULAR VOLUME 86.6 fL (80.0-94.0); MEAN PLATELET VOLUME 8.7 fl (7.4-10.4); MONOCYTES % 5.5 % (2.0-8.0); NEUTROPHILS % 80.5 % (40.0-76.0); PLATELET 286 x1000/uL (130-400); RED BLOOD CELL COUNT 4.31 mill/uL (4.7-6.1); RED CELL DISTRIBUTION WIDTH 18.8 % (11.6-14.6)
[2022-05-14 12:00] VITALS: BP 152/104
[2022-05-14 16:00] VITALS: BP_SYST 121; BP_SYST 162; BP_DIAS 114; BP_DIAS 78
[2022-05-14 20:00] VITALS: BP 152/107
[2022-05-15] VITALS: BP 97/67
[2022-05-15] MEDS: HYDROCODONE/ACETAMINOPHEN 5/325MG TABLET PO PRN ×2 (07:17→11:42)
[2022-05-15 07:49] LABS: BASOPHILS % 1.4 % (0.0-2.0); EOSINOPHILS % 3.1 % (0.0-5.0); HEMATOCRIT. 35.6 % (42.0-52.0); HEMOGLOBIN. 11.4 g/dL (14.0-18.0); LYMPHOCYTES % 13.2 % (20.0-50.0); MEAN CORPUSCULAR HEMOGLOBIN 28.1 pg (28.0-32.0); MEAN CORPUSCULAR VOLUME 87.9 fL (80.0-94.0); MEAN PLATELET VOLUME 8.4 fl (7.4-10.4); MONOCYTES % 7.2 % (2.0-8.0); NEUTROPHILS % 75.1 % (40.0-76.0); PLATELET 245 x1000/uL (130-400); RED BLOOD CELL COUNT 4.05 mill/uL (4.7-6.1); RED CELL DISTRIBUTION WIDTH 18.7 % (11.6-14.6)
[2022-05-15 08:00] VITALS: BP 153/112
[2022-05-15] MEDS: IPRATROPIUM/ALBUTEROL 0.5-3(2.5)MG/3ML NEB HHN SCH ×2 (08:30→13:56)
[2022-05-15] MEDS: AMLODIPINE 5MG TABLET PO SCH (09:48)
[2022-05-15] MEDS: ENOXAPARIN 30MG/0.3ML SYR SUBCUT SCH (09:48)
[2022-05-15] MEDS: CARVEDILOL 3.125 MG TABLET PO SCH (09:51)
[2022-05-15] MEDS ORDERED: INSULIN GLARGINE 100 UNITS/ML SUBCUT SCH (11:15)
[2022-05-15] MEDS ORDERED: DEXTROSE 50% WATER 50ML SYRINGE IV PRN (11:15)
[2022-05-15 12:00] VITALS: BP 135/83
[2022-05-15] MEDS ORDERED: BLOOD SUGAR DIAGNOSTIC STRIP TEST SCH (12:20)
[2022-05-15] MEDS ORDERED: INSULIN LISPRO 100 UNITS/ML SUBCUT SCH (12:50)
[2022-05-15] MEDS ORDERED: GLIP5TAB12 MT (14:12)
[2022-05-15] MEDS ORDERED: INSULIN GLARGINE 100 UNITS/ML SUBCUT NR (14:13)
[2022-05-15] MEDS ORDERED: GLIPIZIDE 5MG TABLET PO SCH (14:30)
[2022-05-15 15:52] VITALS: BP 143/99
[2022-05-15 16:14] VITALS: BP 143/99
[2022-05-16] MEDS ORDERED: ENOXAPARIN 40MG/0.4ML SYR SUBCUT SCH (09:00)
[2022-05-16] MEDS ORDERED: INSULIN GLARGINE 100 UNITS/ML SUBCUT SCH (10:00)
[2022-06-11] MEDS ORDERED: MED4 MT (13:56)
[2022-06-11] MEDS ORDERED: HYDR-4001 MT (13:56)
[2022-06-11] MEDS ORDERED: QUET50TA PO (13:56)
[2022-06-11] MEDS ORDERED: LEVO250T74 MT (13:56)
== END 2022-05-15 16:54 | disposition home health service (06) | DRG 341 ==
LOC: ER 17:31 → MICUSO 23:56 → MERGE 23:56 → EDBEDREQ 05-13 00:02 → EDBEDREQTM 05-13 00:02 → EDBEDREQ 05-13 00:04 → 6EST 05-14 04:18
PROVIDERS: ADMIT Internal Medicine; ATTEND Internal Medicine
DX: S32.592A Other specified fracture of left pubis, initial encounter for closed fracture (principal); G92.9 Unspecified toxic encephalopathy; N17.9 Acute kidney failure, unspecified; I13.0 Hypertensive heart and chronic kidney disease with heart failure and stage 1 through stage 4 chronic kidney disease, or unspecified chronic kidney disease; I42.0 Dilated cardiomyopathy; I50.20 Unspecified systolic (congestive) heart failure; E11.22 Type 2 diabetes mellitus with diabetic chronic kidney disease; I16.0 Hypertensive urgency; J44.1 Chronic obstructive pulmonary disease with (acute) exacerbation; N18.9 Chronic kidney disease, unspecified; M25.512 Pain in left shoulder; R80.9 Proteinuria, unspecified; E11.65 Type 2 diabetes mellitus with hyperglycemia; S40.012A Contusion of left shoulder, initial encounter; I16.9 Hypertensive crisis, unspecified; R26.2 Difficulty in walking, not elsewhere classified; F17.210 Nicotine dependence, cigarettes, uncomplicated; F19.10 Other psychoactive substance abuse, uncomplicated; F12.90 Cannabis use, unspecified, uncomplicated; F14.10 Cocaine abuse, uncomplicated; W19.XXXA Unspecified fall, initial encounter; Z59.00 Homelessness unspecified; Z63.5 Disruption of family by separation and divorce; Z86.73 Personal history of transient ischemic attack (TIA), and cerebral infarction without residual deficits; Z79.899 Other long term (current) drug therapy; Z79.4 Long term (current) use of insulin; Z82.49 Family history of ischemic heart disease and other diseases of the circulatory system; Y93.89 Activity, other specified; Y92.89 Other specified places as the place of occurrence of the external cause; Y99.8 Other external cause status
CPT/HCPCS: 36415; 71045; 72170; 72192; 73030; 73221; 76770; 80048; 80053; 81003; 82962; 83036; 85025; 93005; 94640; 97162; 97166; 97535; 99285; J1650; J1815; J7030

== ENCOUNTER 2022-06-20 04:33 | Inpatient (IN) | payer MEDICAID, OTHER ==
[~2022-06-20] VITALS: Ht 170.2 cm; Wt 63.5 kg
[~2022-06-20 04:33] MED LIST changes: +LEVO250T74 MT; +MED4 MT; -POTA99TA4 MT; +QUET50TA PO
[2022-06-20 06:34] LABS: HEMATOCRIT. 27.5 % (42.0-52.0); HEMOGLOBIN. 8.9 g/dL (14.0-18.0); MEAN CORPUSCULAR HEMOGLOBIN 29.1 pg (28.0-32.0); MEAN CORPUSCULAR VOLUME 90.3 fL (80.0-94.0); MEAN PLATELET VOLUME 8.9 fl (7.4-10.4); PLATELET 76 x1000/uL (130-400); RED BLOOD CELL COUNT 3.04 mill/uL (4.7-6.1); RED CELL DISTRIBUTION WIDTH 17.6 % (11.6-14.6)
[2022-06-20 06:40] LABS: CHLORIDE 101 mEq/L (98-107)
[2022-06-20 07:48] LABS: PLATELET ESTIMATE DECREASED
[2022-06-20] MEDS ORDERED: VANCOMYCIN 1G PREMIX 200 ML IV ONE (08:00)
[2022-06-20] MEDS ORDERED: PIPERACILLIN/TAZ 3.375G PREMIX 50 ML IV ONE (08:00)
[2022-06-20] MEDS ORDERED: INSULIN REGULAR (HUMULIN R) 300UNITS/3ML VIAL IV ONE (08:30)
[2022-06-20] MEDS: FUROSEMIDE 40MG/4ML VIAL IVP SCH (11:09)
[2022-06-20] MEDS: LOSARTAN POTASSIUM 50 MG TABLET PO SCH (11:09)
[2022-06-20] MEDS ORDERED: IPRATROPIUM/ALBUTEROL 0.5-3(2.5)MG/3ML NEB HHN PRN (12:30)
[2022-06-20] MEDS ORDERED: ACETAMINOPHEN 325MG TABLET PO PRN (13:15)
[2022-06-20] MEDS: BUDESONIDE 0.5MG/2ML NEB HHN SCH (15:45)
[2022-06-20 20:00] VITALS: BP 117/73
[2022-06-20 22:00] VITALS: BP 152/99
[2022-06-20] MEDS ORDERED: ACETAMINOPHEN 500MG TABLET PO SCH (22:00)
[2022-06-20] MEDS: INSULIN GLARGINE 100 UNITS/ML SUBCUT SCH (22:32)
[2022-06-20] MEDS: ACETAMINOPHEN 325MG TABLET PO PRN (23:25)
[2022-06-21] VITALS (13 sets, daily range): BP systolic 95–141; BP diastolic 62–99
[2022-06-21] MEDS: ACETAMINOPHEN 325MG TABLET PO PRN ×3 (06:53→21:10)
[2022-06-21] MEDS: FUROSEMIDE 40MG/4ML VIAL IVP SCH ×2 (06:54→17:54)
[2022-06-21] MEDS: BLOOD SUGAR DIAGNOSTIC STRIP TEST SCH ×4 (07:30→20:56)
[2022-06-21] MEDS: INSULIN LISPRO 100 UNITS/ML SUBCUT SCH ×4 (08:00→21:10)
[2022-06-21] MEDS ORDERED: ASPIRIN 81MG EC TABLET PO SCH (09:00)
[2022-06-21] MEDS: AMLODIPINE 10MG TABLET PO SCH (09:34)
[2022-06-21] MEDS: LOSARTAN POTASSIUM 50 MG TABLET PO SCH (09:34)
[2022-06-21] MEDS: HYDRALAZINE HCL 25MG TABLET PO SCH ×3 (09:35→17:49)
[2022-06-21] MEDS: QUETIAPINE FUMARATE 50MG TABLET PO SCH (09:35)
[2022-06-21 15:04] LABS: HEMATOCRIT. 22.9 % (42.0-52.0); HEMOGLOBIN. 7.5 g/dL (14.0-18.0); MEAN CORPUSCULAR VOLUME 88.4 fL (80.0-94.0); MEAN PLATELET VOLUME 8.3 fl (7.4-10.4); PLATELET 65 x1000/uL (130-400); RED BLOOD CELL COUNT 2.59 mill/uL (4.7-6.1); RED CELL DISTRIBUTION WIDTH 16.4 % (11.6-14.6)
[2022-06-21 15:11] LABS: INR 1.1; PROTHROMBIN TIME 11.4 sec (9.6-11.0)
[2022-06-21 15:28] LABS: CHLORIDE 107 mEq/L (98-107)
[2022-06-21 16:00] LABS: PLATELET ESTIMATE DECREASED
[2022-06-21] MEDS: INSULIN GLARGINE 100 UNITS/ML SUBCUT SCH (21:11)
[2022-06-21 21:37] LABS: CLARITY URINE CLEAR (CLEAR); COLOR URINE YELLOW (YELLOW); KETONES URINE NEGATIVE (NEGATIVE); LEUKOCYTE ESTERASE URINE NEGATIVE (NEGATIVE); NITRITE URINE NEGATIVE (NEGATIVE); OCCULT BLOOD URINE NEGATIVE (NEGATIVE); PROTEIN URINE 2+ (NEGATIVE); SPECIFIC GRAVITY URINE 1.011 (1.005-1.030)
[2022-06-21] MEDS ORDERED: AZITHROMYCIN 500 MG TABLET PO NR (21:45)
[2022-06-21 22:01] LABS: *AMPHETAMINES SCREEN URINE NEGATIVE (NEGATIVE); *BARBITURATES SCREEN URINE NEGATIVE (NEGATIVE); *BENZODIAZEPINES SCREEN URINE NEGATIVE (NEGATIVE); *COCAINE SCREEN URINE PRESUMTIVE POSITIVE (NEGATIVE); CANNABINOID URINE SCREEN NEGATIVE (NEGATIVE); METHADONE URINE SCREEN NEGATIVE (NEGATIVE); OPIATES URINE SCREEN NEGATIVE (NEGATIVE); PHENCYCLIDINE URINE SCREEN NEGATIVE (NEGATIVE)
[2022-06-21] MEDS: CEFEPIME 1,000 MG in DEXTROSE 5% WATER 50 ML IV SCH (23:26)
[2022-06-22] VITALS (10 sets, daily range): BP systolic 114–142; BP diastolic 58–90
[2022-06-22] MEDS: ACETAMINOPHEN 325MG TABLET PO PRN (05:21)
[2022-06-22 07:04] LABS: MEAN CORPUSCULAR HEMOGLOBIN 28.8 pg (28.0-32.0); MEAN CORPUSCULAR VOLUME 87.1 fL (80.0-94.0); MEAN PLATELET VOLUME 8.5 fl (7.4-10.4); PLATELET 85 x1000/uL (130-400); RED BLOOD CELL COUNT 3.25 mill/uL (4.7-6.1); RED CELL DISTRIBUTION WIDTH 16.4 % (11.6-14.6)
[2022-06-22 07:08] LABS: HEMATOCRIT. 28.3 % (42.0-52.0); HEMOGLOBIN. 9.4 g/dL (14.0-18.0)
[2022-06-22] MEDS: FUROSEMIDE 40MG/4ML VIAL IVP SCH ×2 (07:15→17:15)
[2022-06-22] MEDS: BLOOD SUGAR DIAGNOSTIC STRIP TEST SCH ×4 (07:30→21:31)
[2022-06-22] MEDS: INSULIN LISPRO 100 UNITS/ML SUBCUT SCH ×4 (08:00→21:36)
[2022-06-22] MEDS: AZITHROMYCIN 250 MG TABLET PO SCH (09:00)
[2022-06-22] MEDS: HYDRALAZINE HCL 25MG TABLET PO SCH ×3 (09:00→17:00)
[2022-06-22] MEDS: QUETIAPINE FUMARATE 50MG TABLET PO SCH (09:00)
[2022-06-22] MEDS: AMLODIPINE 10MG TABLET PO SCH (09:00)
[2022-06-22] MEDS ORDERED: MAGNESIUM 2 G PREMIX 50 ML IV NR (10:00)
[2022-06-22 14:22] LABS: PLATELET ESTIMATE DECREASED
[2022-06-22] MEDS: CEFEPIME 1,000 MG in DEXTROSE 5% WATER 50 ML IV SCH (21:31)
[2022-06-22] MEDS: INSULIN GLARGINE 100 UNITS/ML SUBCUT SCH (21:36)
[2022-06-23] VITALS (12 sets, daily range): BP systolic 91–151; BP diastolic 59–102
[2022-06-23] MEDS: ACETAMINOPHEN 325MG TABLET PO PRN (01:13)
[2022-06-23] MEDS: BLOOD SUGAR DIAGNOSTIC STRIP TEST SCH ×4 (08:07→21:15)
[2022-06-23] MEDS: FUROSEMIDE 40MG/4ML VIAL IVP SCH ×2 (08:13→17:43)
[2022-06-23] MEDS: AMLODIPINE 10MG TABLET PO SCH (08:13)
[2022-06-23] MEDS: QUETIAPINE FUMARATE 50MG TABLET PO SCH (08:13)
[2022-06-23] MEDS: HYDRALAZINE HCL 25MG TABLET PO SCH ×3 (08:13→17:00)
[2022-06-23] MEDS: AZITHROMYCIN 250 MG TABLET PO SCH (08:13)
[2022-06-23] MEDS: INSULIN LISPRO 100 UNITS/ML SUBCUT SCH ×4 (08:14→21:00)
[2022-06-23] MEDS: BUDESONIDE 0.5MG/2ML NEB HHN SCH ×2 (09:00→20:56)
[2022-06-23] MEDS: DEXTROSE 50% WATER 50ML SYRINGE IV PRN (17:43)
[2022-06-23] MEDS: CEFEPIME 1,000 MG in DEXTROSE 5% WATER 50 ML IV SCH (20:57)
[2022-06-23] MEDS: INSULIN GLARGINE 100 UNITS/ML SUBCUT SCH (21:15)
[2022-06-24] VITALS (10 sets, daily range): BP systolic 93–136; BP diastolic 65–89
[2022-06-24] MEDS: BLOOD SUGAR DIAGNOSTIC STRIP TEST SCH ×4 (08:02→21:34)
[2022-06-24] MEDS: FUROSEMIDE 40MG/4ML VIAL IVP SCH ×3 (09:34→19:21)
[2022-06-24] MEDS: QUETIAPINE FUMARATE 50MG TABLET PO SCH (09:34)
[2022-06-24] MEDS: AZITHROMYCIN 250 MG TABLET PO SCH (09:34)
[2022-06-24] MEDS: AMLODIPINE 10MG TABLET PO SCH (09:34)
[2022-06-24] MEDS: HYDRALAZINE HCL 25MG TABLET PO SCH ×3 (09:34→17:00)
[2022-06-24] MEDS: INSULIN LISPRO 100 UNITS/ML SUBCUT SCH ×4 (09:38→21:35)
[2022-06-24] MEDS: ONDANSETRON HCL 4MG/2ML INJ IV PRN (12:03)
[2022-06-24] MEDS: CARVEDILOL 3.125 MG TABLET PO SCH ×2 (14:30→21:34)
[2022-06-24] MEDS: ACETAMINOPHEN 325MG TABLET PO PRN (14:42)
[2022-06-24] MEDS ORDERED: CARVEDILOL 3.125 MG TABLET PO SCH (21:00)
[2022-06-24] MEDS: CEFEPIME 1,000 MG in DEXTROSE 5% WATER 50 ML IV SCH (21:34)
[2022-06-24] MEDS: INSULIN GLARGINE 100 UNITS/ML SUBCUT SCH (21:36)
[2022-06-24] MEDS: BUDESONIDE 0.5MG/2ML NEB HHN SCH (22:00)
[2022-06-25] VITALS (11 sets, daily range): BP systolic 100–125; BP diastolic 64–81
[2022-06-25] MEDS: ACETAMINOPHEN 325MG TABLET PO PRN ×2 (01:54→23:11)
[2022-06-25 07:14] LABS: BASOPHILS % 0.9 % (0.0-2.0); EOSINOPHILS % 0.8 % (0.0-5.0); HEMATOCRIT. 25.8 % (42.0-52.0); HEMOGLOBIN. 8.4 g/dL (14.0-18.0); MEAN CORPUSCULAR HEMOGLOBIN 28.5 pg (28.0-32.0); MEAN CORPUSCULAR VOLUME 87.1 fL (80.0-94.0); MEAN PLATELET VOLUME 8.1 fl (7.4-10.4); MONOCYTES % 12.1 % (2.0-8.0); NEUTROPHILS % 66.2 % (40.0-76.0); PLATELET 174 x1000/uL (130-400); RED BLOOD CELL COUNT 2.97 mill/uL (4.7-6.1); RED CELL DISTRIBUTION WIDTH 16.3 % (11.6-14.6)
[2022-06-25] MEDS: ONDANSETRON HCL 4MG/2ML INJ IV PRN (07:48)
[2022-06-25] MEDS: INSULIN LISPRO 100 UNITS/ML SUBCUT SCH ×4 (08:00→21:00)
[2022-06-25 08:14] LABS: PHOSPHORUS 3.8 mg/dL (2.5-4.9)
[2022-06-25] MEDS: BLOOD SUGAR DIAGNOSTIC STRIP TEST SCH ×4 (08:14→21:00)
[2022-06-25] MEDS: BUDESONIDE 0.5MG/2ML NEB HHN SCH ×2 (08:25→21:00)
[2022-06-25] MEDS: QUETIAPINE FUMARATE 50MG TABLET PO SCH (09:41)
[2022-06-25] MEDS: HYDRALAZINE HCL 25MG TABLET PO SCH ×3 (09:42→18:25)
[2022-06-25] MEDS: CARVEDILOL 3.125 MG TABLET PO SCH ×2 (09:42→23:05)
[2022-06-25] MEDS: AZITHROMYCIN 250 MG TABLET PO SCH (09:42)
[2022-06-25] MEDS: AMLODIPINE 10MG TABLET PO SCH (09:43)
[2022-06-25] MEDS: FUROSEMIDE 40MG/4ML VIAL IVP SCH ×2 (13:21→18:25)
[2022-06-25 16:43] LABS: INR 1.1; PROTHROMBIN TIME 11.9 sec (9.6-11.0)
[2022-06-25] MEDS: INSULIN GLARGINE 100 UNITS/ML SUBCUT SCH (22:00)
[2022-06-25] MEDS: CEFEPIME 1,000 MG in DEXTROSE 5% WATER 50 ML IV SCH (23:04)
[2022-06-26] VITALS (11 sets, daily range): BP systolic 89–133; BP diastolic 58–80
[2022-06-26] MEDS: ONDANSETRON HCL 4MG/2ML INJ IV PRN (02:34)
[2022-06-26] MEDS: BLOOD SUGAR DIAGNOSTIC STRIP TEST SCH ×4 (07:47→21:41)
[2022-06-26] MEDS: INSULIN LISPRO 100 UNITS/ML SUBCUT SCH ×4 (07:48→21:00)
[2022-06-26] MEDS: BUDESONIDE 0.5MG/2ML NEB HHN SCH (08:17)
[2022-06-26] MEDS ORDERED: LIDOCAINE HCL 1% 10 MG/ML 10ML VIAL ONE (08:55)
[2022-06-26] MEDS ORDERED: SODIUM BICARBONATE 4% (2.4MEQ) 5ML VIAL IV ONE (08:55)
[2022-06-26] MEDS: ACETAMINOPHEN 325MG TABLET PO PRN (10:15)
[2022-06-26] MEDS: AMLODIPINE 10MG TABLET PO SCH (10:15)
[2022-06-26] MEDS: QUETIAPINE FUMARATE 50MG TABLET PO SCH (10:16)
[2022-06-26] MEDS: HYDRALAZINE HCL 25MG TABLET PO SCH ×3 (10:16→17:00)
[2022-06-26] MEDS: FUROSEMIDE 40MG/4ML VIAL IVP SCH ×3 (10:16→17:00)
[2022-06-26] MEDS: CARVEDILOL 3.125 MG TABLET PO SCH ×2 (10:16→21:44)
[2022-06-26 11:30] LABS: EOSINOPHILS % 0.5 % (0.0-5.0); HEMATOCRIT. 24.1 % (42.0-52.0); HEMOGLOBIN. 7.9 g/dL (14.0-18.0); LYMPHOCYTES % 16.7 % (20.0-50.0); MEAN CORPUSCULAR HEMOGLOBIN 28.7 pg (28.0-32.0); MEAN CORPUSCULAR VOLUME 87.9 fL (80.0-94.0); MEAN PLATELET VOLUME 7.9 fl (7.4-10.4); MONOCYTES % 12.2 % (2.0-8.0); NEUTROPHILS % 69.6 % (40.0-76.0); PLATELET 224 x1000/uL (130-400); RED BLOOD CELL COUNT 2.74 mill/uL (4.7-6.1); RED CELL DISTRIBUTION WIDTH 15.7 % (11.6-14.6)
[2022-06-26] MEDS ORDERED: MAGNESIUM 2 G PREMIX 50 ML IV NR (16:00)
[2022-06-26] MEDS: DEXTROSE 50% WATER 50ML SYRINGE IV PRN (17:12)
[2022-06-26] MEDS: CEFEPIME 1,000 MG in DEXTROSE 5% WATER 50 ML IV SCH (21:41)
[2022-06-26] MEDS: INSULIN GLARGINE 100 UNITS/ML SUBCUT SCH (21:46)
[2022-06-27] VITALS: BP 103/69
[2022-06-27] MEDS: ACETAMINOPHEN 325MG TABLET PO PRN ×2 (03:27→09:57)
[2022-06-27] MEDS: ONDANSETRON HCL 4MG/2ML INJ IV PRN (03:27)
[2022-06-27] MEDS: BLOOD SUGAR DIAGNOSTIC STRIP TEST SCH ×2 (07:30→12:34)
[2022-06-27 08:00] VITALS: BP 133/80
[2022-06-27] MEDS: INSULIN LISPRO 100 UNITS/ML SUBCUT SCH ×2 (08:00→13:05)
[2022-06-27 10:00] VITALS: BP 127/71
[2022-06-27] MEDS: FUROSEMIDE 40MG/4ML VIAL IVP SCH ×2 (10:24→13:06)
[2022-06-27] MEDS: AMLODIPINE 10MG TABLET PO SCH (10:25)
[2022-06-27] MEDS: QUETIAPINE FUMARATE 50MG TABLET PO SCH (10:25)
[2022-06-27] MEDS: CARVEDILOL 3.125 MG TABLET PO SCH (10:25)
[2022-06-27] MEDS: HYDRALAZINE HCL 25MG TABLET PO SCH ×2 (10:26→13:07)
[2022-06-27 12:00] VITALS: BP 111/67
[2022-06-27 12:12] LABS: EOSINOPHILS % 0.5 % (0.0-5.0); HEMATOCRIT. 27.3 % (42.0-52.0); HEMOGLOBIN. 8.9 g/dL (14.0-18.0); LYMPHOCYTES % 17.5 % (20.0-50.0); MEAN CORPUSCULAR HEMOGLOBIN 28.5 pg (28.0-32.0); MEAN CORPUSCULAR VOLUME 87.6 fL (80.0-94.0); MEAN PLATELET VOLUME 7.7 fl (7.4-10.4); MONOCYTES % 9.8 % (2.0-8.0); NEUTROPHILS % 71.2 % (40.0-76.0); PLATELET 319 x1000/uL (130-400); RED BLOOD CELL COUNT 3.12 mill/uL (4.7-6.1); RED CELL DISTRIBUTION WIDTH 15.7 % (11.6-14.6)
[2022-06-27 13:19] VITALS: BP 111/67
== END 2022-06-27 15:10 | DRG 720 ==
LOC: ER 04:49 → 5EST 08:27 → EDBEDREQSVC 08:56 → EDBEDREQ 08:56 → EDBEDREQTM 08:56
PROVIDERS: ADMIT Internal Medicine; ATTEND Internal Medicine
PROC: 0W993ZZ Drainage of Right Pleural Cavity, Percutaneous Approach (ICD-10-PCS; principal; 2022-06-22)
PROC: 0W993ZZ Drainage of Right Pleural Cavity, Percutaneous Approach (ICD-10-PCS; 2022-06-26)
DX: A41.9 Sepsis, unspecified organism (principal); J96.01 Acute respiratory failure with hypoxia; G93.41 Metabolic encephalopathy; I50.23 Acute on chronic systolic (congestive) heart failure; E43 Unspecified severe protein-calorie malnutrition; D61.818 Other pancytopenia; I42.0 Dilated cardiomyopathy; J18.9 Pneumonia, unspecified organism; J44.1 Chronic obstructive pulmonary disease with (acute) exacerbation; E11.22 Type 2 diabetes mellitus with diabetic chronic kidney disease; E11.65 Type 2 diabetes mellitus with hyperglycemia; N17.9 Acute kidney failure, unspecified; E78.5 Hyperlipidemia, unspecified; I08.1 Rheumatic disorders of both mitral and tricuspid valves; F41.9 Anxiety disorder, unspecified; J91.8 Pleural effusion in other conditions classified elsewhere; M54.9 Dorsalgia, unspecified; I13.2 Hypertensive heart and chronic kidney disease with heart failure and with stage 5 chronic kidney disease, or end stage renal disease; N18.6 End stage renal disease; Z68.29 Body mass index [BMI] 29.0-29.9, adult; J44.0 Chronic obstructive pulmonary disease with (acute) lower respiratory infection; J96.21 Acute and chronic respiratory failure with hypoxia; F14.10 Cocaine abuse, uncomplicated; Z99.81 Dependence on supplemental oxygen; Z99.2 Dependence on renal dialysis; Z91.14 Patient's other noncompliance with medication regimen; Z87.891 Personal history of nicotine dependence; Z82.49 Family history of ischemic heart disease and other diseases of the circulatory system
CPT/HCPCS: 32555; 36415; 71045; 71250; 76604; 80048; 80053; 80305; 81003; 82010; 82040; 82962; 83036; 83615; 83735; 83880; 84100; 84145; 84484; 85025; 87426; 88108; 93005; 97162; 97166; 99291; C9803; J0692; J1815; J1940; J2405; J2543; J3370; J3475; J3490; J7060; J7626

== ENCOUNTER 2023-07-28 14:52 | Emergency (ER) | payer MEDICAID, OTHER ==
[~2023-07-28] VITALS: Ht 170.2 cm; Wt 91.0 kg
[~2023-07-28 14:52] MED LIST changes: -ATROV IH; -CEPH500C2 MT; +CLON0.1T PO; +DICL100G58 TP; +FLUT1BLS10 PO; -FLUT1DIS3 INH; -FLUT1DIS6 INH; -FURO80TA3 MT; -FURO80TA3 PO; -GLIP5TAB12 MT; +GLIP5TAB22 MT; -HYDR-4001 MT; -INSU100I13 SQ; -INSU100I24 SQ; +INSU100I24 SUBCUT; -INSU100I28 SQ; +INSU100I32 SUBCUT; -LEVO-65 MT; -LEVO250T74 MT; +LOSA-412 PO; -LOSA100T32 MT; -LOSA25TA3 PO; -MED4 MT; -METO10TA8 PO; +P20 MT; -SPIR25TA6 MT; -TIOT4MIS3 IH; -TOPUD PO; -TRAM50TA3 MT
[2023-07-28 14:58] VITALS: O2SAT 94
[2023-07-28] MEDS ORDERED: FUROSEMIDE 40MG/4ML VIAL IVP ONE (16:15)
[2023-07-28 16:43] LABS: BASOPHILS % 0.5 % (0.0-2.0); EOSINOPHILS % 0.4 % (0.0-5.0); HEMATOCRIT. 29.8 % (42.0-52.0); HEMOGLOBIN. 8.9 g/dL (14.0-18.0); LYMPHOCYTES % 7.6 % (20.0-50.0); MEAN PLATELET VOLUME 8.6 fl (7.4-10.4); MONOCYTES % 9.8 % (2.0-8.0); NEUTROPHILS % 81.7 % (40.0-76.0); PLATELET 253 x1000/uL (130-400); RED BLOOD CELL COUNT 3.31 mill/uL (4.7-6.1); RED CELL DISTRIBUTION WIDTH 16.4 % (11.6-14.6); WHITE BLOOD COUNT 7.7 x1000/uL (4.5-11.0)
[2023-07-28 16:56] LABS: ALANINE AMINOTRANSFERASE 22 IU/L (10-49); ALBUMIN 3.6 g/dL (3.2-4.8); ASPARTATE AMINOTRANSFERASE 29 IU/L (<34); BILIRUBIN TOTAL 0.2 mg/dL (0.1-1.0); CALCIUM 8.6 mg/dL (8.7-10.4); CARBON DIOXIDE 21 mEq/L (21-32); CHLORIDE 106 mEq/L (98-107); CREATININE 4.8 mg/dL (0.6-1.3); POTASSIUM 5.3 mEq/L (3.5-5.1); PROTEIN TOTAL 5.9 g/dL (6.0-8.3); SODIUM 139 mEq/L (136-145); UREA NITROGEN BLOOD 64 mg/dL (9-23)
[2023-07-28] MEDS ORDERED: AZITHROMYCIN 500MG/250ML 250 ML IV ONE (17:00)
[2023-07-28] MEDS ORDERED: SODIUM CHLORIDE 0.9% 1000ML BAG (SEPSIS BOLUS) IV ONE (17:00)
[2023-07-28] MEDS ORDERED: CEFTRIAXONE 1GM PREMIX 50 ML IV ONE (17:00)
[2023-07-28 17:02] LABS: GLUCOSE 69 mg/dL (70-105); TROPONIN I HIGH SENSITIVITY 168 ng/L (3.0-53)
[2023-07-28 18:26] LABS: TROPONIN I HIGH SENSITIVITY 164 ng/L (3.0-53)
[2023-07-28] MEDS ORDERED: ASPIRIN 325MG EC TABLET PO ONE (19:30)
[2023-07-28 20:15] VITALS: BP 124/79; PULSE 93; RESP 16
== END 2023-07-28 20:25 | disposition short-term general hospital (02) ==
LOC: ER 15:30 → MICUSO 07-30 17:03 → UNDOADMIN 07-30 17:03
DX: J44.1 Chronic obstructive pulmonary disease with (acute) exacerbation (principal); J18.9 Pneumonia, unspecified organism; N28.9 Disorder of kidney and ureter, unspecified; R79.89 Other specified abnormal findings of blood chemistry; I11.0 Hypertensive heart disease with heart failure; I50.9 Heart failure, unspecified; E11.9 Type 2 diabetes mellitus without complications; Z20.822 Contact with and (suspected) exposure to COVID-19
CPT/HCPCS: 80053; 83880; 83605; 85025; 87420; 87040; 84484; 87804 ×2; 36415; 71045; 93005; 96368; 96365; 96366; 96375; 99285; 87426; J0456; J0696; J1940; J7030; C9803; Z7610 ×2